=== PATIENT | male | born 1945 | race Caucasian/White ===

== ENCOUNTER 2024-07-25 04:58 | Inpatient (IN) ==
--- NOTE | 2024-07-25 05:12 | Emergency Department Note ---
History of Present Illness General Chief complaint: Trauma Stated complaint: Syncope, Fall Time Seen by Provider: 07/25/24 05:04 Source: EMS History of Present Illness Provider complaint: Syncope and fall Onset (ago): hour(s) 1 78-year-old male with history of diabetes and atrial fibrillation presents emergency department for syncope and fall. Patient reports he was on his computer and around 4 AM he got up to go to another room and felt very dizzy and fell and passed out. Patient is currently reporting pain in his neck. He reports no chest pain or difficulty breathing. Patient reports he was having difficulty sleeping so he took some Benadryl earlier tonight he also reports that he forgot his morning medications so he took them in the evening but did not take double doses of that. Patient reports he is on blood thinners but is not sure which one. Home Medications Medication Instructions Recorded Confirmed Type AMITRIPTYLINE HCL (ELAVIL) 10 mg PO DAILY #0 tabs 05/31/12 History ATENOLOL (TENORMIN) 50 mg PO DAILY #0 tabs 05/31/12 History CHOLECALCIFEROL (VITAMIN D 1000 1,000 inter.unit PO DAILY #0 caps 05/31/12 History UNIT) Diltiazem Hcl (TIAZAC 120 MG) 120 mg PO DAILY #0 caps 05/31/12 History Furosemide (Lasix) 10 mg PO PRN #0 tabs 05/31/12 History INSULIN ASPART (NOVOLOG) 25 unit SC TIDM #0 BTLS 05/31/12 History INSULIN GLARGINE (LANTUS SOLOSTAR 50 unit SC BID ##0 05/31/12 History PEN) LEVOTHYROXINE SODIUM (LEVOXYL) 0.175 mg PO DAILY #0 tabs 05/31/12 History LISINOPRIL (PRINIVIL) 20 mg PO DAILY #0 tabs 05/31/12 History METFORMIN HCL (GLUCOPHAGE) 1,000 mg PO BID #0 tabs 05/31/12 History ROSUVASTATIN CALCIUM (Crestor) 10 mg PO QPM #0 tabs 05/31/12 History Allergies Allergy/AdvReac Type Severity Reaction Status Date / Time No Known Allergies Allergy Unverified 05/31/12 15:23 Past Med/Surg History Problem List (Updated 07/25/24 @ 06:43 by Tunde Chance MD) Hypokalemia (Acute) Lactic acidemia (Acute) Syncope and collapse (Acute) Hypoglycemia (Acute) RUANO (dyspnea on exertion) Medical History Atrial fibrillation Sleep apnea Dyslipidemia Hypertension Type 2 diabetes mellitus Social History Smoking Status: Former smoker Preferred Language: Slovak Feels Safe at Home: Yes Physical Exam Vital Signs Vital Signs - 24 hr 07/25/24 05:03 07/25/24 05:10 07/25/24 05:10 Temperature 37 C Pulse Rate 79 83 Pulse Rate [Apical] Pulse Rhythm [Apical] Pulse Strength [Apical] Pulse Strength [Carotid] Normal Respiratory Rate 19 Respiratory Effort / Characteristics Respiratory Depth Respiratory Pattern Blood Pressure 135/89 Blood Pressure [Right Arm] Blood Pressure Mean Blood Pressure Mean [Right Arm] Blood Pressure Position [Right Arm] Pulse Oximetry 94 Oxygen Delivery Method Room Air Oxygen Flow Rate 0 Sepsis Recent Fever Within 48 Hours No Sepsis New/Unexplained Change in Mental Status N/A Sepsis Action Taken by Nursing No Action Required 07/25/24 05:25 07/25/24 05:33 07/25/24 05:50 Temperature Pulse Rate 76 98 H 74 Pulse Rate [Apical] Pulse Rhythm [Apical] Pulse Strength [Apical] Pulse Strength [Carotid] Respiratory Rate 17 17 Respiratory Effort / Characteristics Respiratory Depth Respiratory Pattern Blood Pressure 131/66 123/71 Blood Pressure [Right Arm] Blood Pressure Mean 92 75 Blood Pressure Mean [Right Arm] Blood Pressure Position [Right Arm] Pulse Oximetry 95 94 Oxygen Delivery Method Room Air Room Air Oxygen Flow Rate Sepsis Recent Fever Within 48 Hours Sepsis New/Unexplained Change in Mental Status Sepsis Action Taken by Nursing 07/25/24 06:07 Temperature Pulse Rate Pulse Rate [Apical] 70 Pulse Rhythm [Apical] Irregular Pulse Strength [Apical] Normal Pulse Strength [Carotid] Respiratory Rate 17 Respiratory Effort / Characteristics Non-Labored Spontaneous Respiratory Depth Normal Respiratory Pattern Regular Blood Pressure Blood Pressure [Right Arm] 117/71 Blood Pressure Mean Blood Pressure Mean [Right Arm] 86 Blood Pressure Position [Right Arm] Lying Pulse Oximetry 100 Oxygen Delivery Method Room Air Oxygen Flow Rate Sepsis Recent Fever Within 48 Hours Sepsis New/Unexplained Change in Mental Status Sepsis Action Taken by Nursing Physical Exam GENERAL: He is oriented to person, place, and time. He appears well-developed and well-nourished. He does not appear distressed. HENT: Exam performed. - Head: Normocephalic and atraumatic. - Right Ear: External ear normal. No mastoid erythema - Left Ear: External ear normal. No mastoid erythema - Mouth/Throat: The oropharynx is clear and moist. No trismus in the jaw. No dental abscesses or uvula swelling. No oropharyngeal exudate or tonsillar abscesses. EYES: Conjunctivae and EOM are normal. Pupils are equal, round, and reactive to light. Right eye exhibits no discharge. Left eye exhibits no discharge. No scleral icterus. NECK: Normal range of motion. Neck supple. No JVD present. No spinous process tenderness present. CV: Normal rate, irregular rhythm, normal heart sounds and intact distal pulses. There is no peripheral edema. Palpable radial pulses bue. PULM/CHEST: Effort normal and breath sounds normal. No respiratory distress. No stridor. He has no wheezes. He has no rales. - Chest Wall: He exhibits no tenderness. ABD: The abdomen is soft. Ventral hernia present. There is no tenderness. There is no rebound, no guarding. MUSC/SKEL: Pelvis stable. No C, T, or L-spine tenderness. NEURO: He is alert and oriented to person, place, and time. He has normal strength. No cranial nerve deficit or sensory deficit. Coordination and gait normal. GCS eye subscore is 4. GCS verbal subscore is 5. GCS motor subscore is 6. Cerebellar tests wnl. SKIN: Skin is warm and dry. He is not diaphoretic. Procedures FAST Exam FAST Exam 1: Fluid in Morison's pouch: No Fluid in Splenorenal Junction: No Fluid around bladder, Transverse view: No Fluid around bladder, Sagittal view: No Fluid in Pericardial Sac: No Gross Wall Motion Abnormality: No Study normal for this patient: Yes Course Course 0504: The patient was evaluated in room B1. A complete history and physical exam was performed Cardiac monitoring: An order was placed for continuous cardiac monitoring. The monitor shows a rate of 80 with atrial fibrilation rhythm interpreted by me Patient was initially hypotensive for EMS 90/60. Given the patient's low blood pressure, reported history of an unknown blood thinner, trauma alert was activated. 0520: Vital signs stable. Patient's i-STAT showed glucose of 45. Patient states he is not sure which medicine agents he took double dose of but also reports he did not eat tonight. 1 amp of D50 ordered for the patient. 0639: Vital signs stable. Labs show white blood cell count of 6.34. Hematocrit 37.7 hemoglobin 12.9. Potassium 3. Potassium repleted in the emergency department. Patient's repeat glucose after 1 amp of D50 117. Patient's lactic acid was initially 2.7. Patient has a cardiac history, will not give 30 cc/kg bolus given that the patient is normotensive. Urinalysis is pending. Broad- spectrum antibiotic Zosyn ordered for the patient. Unclear if the patient's lactic acidemia is secondary to his chronic metformin usage or sepsis, but empiric broad-spectrum antibiotics Zosyn given for the patient. CT of the head negative. CT of the C-spine negative. CT of the abdomen pelvis showed an irregular contour of the liver indicating chronic liver disease. Patient's alcohol was 20 however the patient states he does not drink alcohol. There was extensive pandiverticulosis which could represent chronic diverticulitis. Discussed the case with Dr. Mckeon [facility] hospitalist and he will evaluate the patient for admission. Administered Medications Discontinued Medications Dextrose (Dextrose 50% 50 Ml Syringe) 50 ml IV NOW ONE Stop: 07/25/24 05:15 Last Admin: 07/25/24 05:28 Dose: 50 ml Documented By: DOMINGUEZ Dextrose (Dextrose 50% 50 Ml Syringe) Confirm Administered Dose 50 ml IV .STK- MED ONE Stop: 07/25/24 05:16 Last Admin: 07/25/24 05:30 Dose: Not Given Documented By: DOMINGUEZ Sodium Chloride (Nss) 500 mls @ 999 mls/hr IV .Q31M ONE Stop: 07/25/24 06:27 Last Admin: 07/25/24 06:01 Dose: 999 mls/hr Documented By: DOMINGUEZ Ioversol (Optiray 320 100ml) 94 ml IV ONCE ONE Stop: 07/25/24 05:31 Last Admin: 07/25/24 05:30 Dose: 94 ml Documented By: KEYONNA Critical Care Time Critical Care Time: Yes Total Critical Care Time: 64 I have personally spent greater than 64 minutes of critical care time in the direct management of this patient. This includes bedside care, interpretation of diagnostic studies, and testing, discussion with consultants, patient, and family members, and other required patient management activities. This 64 minutes is in excess of all separately billable procedures. Medical Decision Making Laboratory Data Attestation: I reviewed the patient's lab results. 07/25/24 05:11 07/25/24 05:11 Lab Results 07/25/24 07/25/24 07/25/24 Range/Units 05:11 05:13 05:27 WBC 6.34 (4.8-10.8) K/ul RBC 4.04 L (4.70-6.10) M/uL Hgb 12.9 L (14.0-18.0) g/dl POC Hgb 12.9 L (14.0-18.0) g/dl Hct 37.7 L (42.0-52.0) % POC Hct 38 L (42-52) % MCV 93.3 (80.0-100.0) fL MCH 31.9 (25.0-34.0) pg MCHC 34.2 (32.0-36.0) g/dL RDW Std Deviation 44.1 (36.4-46.3) fL RDW Coeff of Asiya 12.9 (11.5-14.5) % Plt Count 169 (130-400) K/uL MPV 10.6 (9.4-12.4) fL Immature Gran % (Auto) 0.5 % Neut % (Auto) 59.4 % Lymph % (Auto) 21.1 % [place] % (Auto) 17.8 % Eos % (Auto) 0.9 % Baso % (Auto) 0.3 % Neut # (Auto) 3.76 (1.40-6.50) K/uL Lymph # (Auto) 1.34 (1.20-3.40) K/uL [place] # (Auto) 1.13 H (0.11-0.59) K/uL Eos # (Auto) 0.06 (0.00-0.50) K/uL Baso # (Auto) 0.02 (0.00-0.20) K/uL Immature Gran # (Auto) 0.03 (0.01-0.20) K/uL PT 11.4 (9.0-12.0) Seconds INR 1.1 (0.9-1.1) APTT 26 (21-31) Seconds PTT Ratio 1.0 POC Sodium 141 (135-144) mmol/L Sodium 140 (136-145) mmol/L POC Potassium 2.9 L (3.3-5.0) mmol/L Potassium 3.0 L (3.5-5.1) mmol/L POC Chloride 100 L (101-112) mmol/L Chloride 103 (98-107) mmol/L Carbon Dioxide 30 (21-32) mmol/L POC Total CO2 27 (24-31) mmol/L Anion Gap 7 (3-11) POC Anion Gap 17.0 (16-25) mmol/L POC BUN 30 H (7-18) mg/dl BUN 32 H (6-23) mg/dl Creatinine 1.30 (0.6-1.4) mg/dl POC Creatinine 1.3 (0.6-1.3) mg/dl Est Cr Clr Drug Dosing 52.7 ml/min eGFR 56.58 BUN/Creatinine Ratio 24.6 H (10-20) Glucose 46 L* (70-99(Fasting)) mg/dl POC Glucose 61 L* (70-99) mg/dl POC Glucose (other) 45 L* (70-99) mg/dl Lactate (0.4-2.0) mmol/L Calcium 8.9 (8.6-10.3) mg/dl POC Ioniz Calcium Mich 1.15 (1.12-1.32) mmol/l Magnesium 2.2 (1.7-2.4) mg/dl Troponin I High Sens 5.9 (0-20) pg/ml Lipase 17 (11-82) U/L Ethyl Alcohol mg/dL (<10.0) mg/dl 07/25/24 07/25/24 Range/Units 05:28 05:45 WBC (4.8-10.8) K/ul RBC (4.70-6.10) M/uL Hgb (14.0-18.0) g/dl POC Hgb (14.0-18.0) g/dl Hct (42.0-52.0) % POC Hct (42-52) % MCV (80.0-100.0) fL MCH (25.0-34.0) pg MCHC (32.0-36.0) g/dL RDW Std Deviation (36.4-46.3) fL RDW Coeff of Asiya (11.5-14.5) % Plt Count (130-400) K/uL MPV (9.4-12.4) fL Immature Gran % (Auto) % Neut % (Auto) % Lymph % (Auto) % [place] % (Auto) % Eos % (Auto) % Baso % (Auto) % Neut # (Auto) (1.40-6.50) K/uL Lymph # (Auto) (1.20-3.40) K/uL [place] # (Auto) (0.11-0.59) K/uL Eos # (Auto) (0.00-0.50) K/uL Baso # (Auto) (0.00-0.20) K/uL Immature Gran # (Auto) (0.01-0.20) K/uL PT (9.0-12.0) Seconds INR (0.9-1.1) APTT (21-31) Seconds PTT Ratio POC Sodium (135-144) mmol/L Sodium (136-145) mmol/L POC Potassium (3.3-5.0) mmol/L Potassium (3.5-5.1) mmol/L POC Chloride (101-112) mmol/L Chloride (98-107) mmol/L Carbon Dioxide (21-32) mmol/L POC Total CO2 (24-31) mmol/L Anion Gap (3-11) POC Anion Gap (16-25) mmol/L POC BUN (7-18) mg/dl BUN (6-23) mg/dl Creatinine (0.6-1.4) mg/dl POC Creatinine (0.6-1.3) mg/dl Est Cr Clr Drug Dosing ml/min eGFR BUN/Creatinine Ratio (10-20) Glucose (70-99(Fasting)) mg/dl POC Glucose 117 H (70-99) mg/dl POC Glucose (other) (70-99) mg/dl Lactate 2.7 H* (0.4-2.0) mmol/L Calcium (8.6-10.3) mg/dl POC Ioniz Calcium Mich (1.12-1.32) mmol/l Magnesium (1.7-2.4) mg/dl Troponin I High Sens (0-20) pg/ml Lipase (11-82) U/L Ethyl Alcohol mg/dL 20.3 H (<10.0) mg/dl Imaging Data Attestation: I personally reviewed and interpreted this imaging study as follows: My Impression: Chest x-ray: Chest x-ray negative. Airway clear. No pneumothorax. No consolidation. No cardiomegaly or cephalization.. No free air under the diaphragm. No fractures of the skeletal structures. CT head: No [facility] Radiologist's Impression: Abdomen/Pelvis CT 07/25/24 05:05 EXAM: CT abd pelvis IV con only CLINICAL HISTORY: syncope, fall, r/o trauma. TECHNIQUE: Contrast-enhanced CT of the abdomen and pelvis was performed, with the following protocol: axial images with, and reconstructed coronal and sagittal images. 94 cc Optiray 320 Intravenous contrast was administered. One of the following dose reduction techniques was utilized for this exam: Automated exposure control, adjustment of the mA and/or kV according to patient size, and use of iterative reconstruction. COMPARISON: None. FINDINGS: Abdomen: Liver: Normal in size, shape, and density. The contour of the liver is irregular suggesting chronic liver disease. No focal lesions, cysts, or masses were identified. Hepatic vasculature and biliary ducts are unremarkable. Gallbladder and Biliary System: The gallbladder is normal in size and shape. No wall thickening, pericholecystic fluid, or gallstones were identified. The common bile duct is normal in caliber without dilation. Pancreas: Pancreatic head, body, and tail are visualized and appear normal in size and density. No pancreatic masses or calcifications were noted. The pancreatic duct is not dilated. Spleen: Normal in size, shape, and density. No splenic lesions or masses were identified. Kidneys and Adrenal Glands: Both kidneys are normal in size, shape, and position. Cortical thickness is within normal limits. No renal calculi or hydronephrosis. Adrenal glands are unremarkable with no evidence of masses or hyperplasia. Pelvis: Urinary Bladder: Normal in contour and wall thickness. No intraluminal lesions identified. Prostate: Normal in size and contour. No focal lesions or masses identified. Seminal Vesicles: Normal in size and appearance. No abnormalities noted. Peritoneal and Retroperitoneal Structures: No free fluid or abnormal fluid collections were identified within the abdomen or pelvis. No lymphadenopathy was noted. Bowel: Extensive lawler colon diverticulosis with thickening of the sigmoid wall represents chronic diverticulitis. The visualized bowel loops are normal in caliber and appearance. No evidence of bowel obstruction. Bones and Soft Tissues: Severe spondylotic changes were noted. No signs of acute fracture/dislocation. Partial collapse of the L3 vertebra. Grade 1 anterolisthesis of L5 over S1. Non-specific fat stranding in the subcutaneous tissue in the anterior abdominal wall. IMPRESSION: 1. Severe spondylotic changes were noted. No signs of acute fracture/dislocation. 2. The contour of the liver is irregular suggesting chronic liver disease. 3. Extensive lawler colon diverticulosis with thickening of the sigmoid wall represents chronic diverticulitis. Electronically signed by Yusra Jose 07-25-2024 06:[address] 07/25/24 05:05 EXAM: CT cervical spine wo con CLINICAL HISTORY: Syncope, fall, r/o trauma TECHNIQUE: A CT scan of the cervical spine was performed without the administration of intravenous contrast. Contiguous axial images were obtained from the skull base to the upper thoracic spine. Coronal and sagittal reformatted images were also reviewed. One of the following dose-reduction techniques was utilized for this exam. Automated exposure control, adjustment of the mA and/or kV according to patient size, and use of iterative reconstruction. COMPARISON: No previous studies are available for comparison. FINDINGS: Straightening of the cervical lordotic curve indicating muscle spasm No vertebral wedging or collapse Advanced spondylosis with anterior and posterior marginal osteophytosis multilevel particularly from C5-6 down to C7-T1 attenuated disc spaces with intradiscal calcifications. Forward slippage of C3 and C4 over corresponding vertebrae secondary to facet arthropathic changes degenerative spondylolisthesis Atlantoaxial osteoarthritis. Multilevel neurocentral arthropathic changes forming osteophytes complexes l at the mid to the degenerative neural foraminal compromise bilaterally Nuchal ligament calcifications of opposite C5 and C6 vertebrae Multilevel of disc/Osteophytic complexes are seen indenting the ventral aspect of the theca and encroaching upon both neural exit foramina most at C5-6 and C6-7 levels. Detailed disc disease assessment may require additional MRI. No paraspinal masses or hematomas. IMPRESSION: 1. No fractures 2. C3 and C4 degenerative spondylolisthesis. 3. 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 Multilevel of disc/Osteophytic complexes are seen indenting the ventral aspect of the theca and encroaching upon both neural exit foramina most at C5-6 and C6-7 levels. Detailed disc disease assessment may require additional MRI. Electronically signed by Yusra Jose 07-25-2024 06:16 AM Chest X-Ray 07/25/24 05:05 EXAM: XR chest 1V portable CLINICAL HISTORY: TRAUMA JM. TECHNIQUE: An X-ray image of the chest is obtained in AP projection. COMPARISON: No prior studies are available for comparison. FINDINGS: Pulmonary Parenchyma: Lungs are clear bilaterally. No evidence of consolidation, collapse, or focal opacities. No pulmonary nodules are identified. No evidence of pleural effusion or pleural thickening. Heart and Mediastinum: Heart size and shape are normal. No mediastinal widening or masses. No hilar or mediastinal lymphadenopathy. Bony Thorax: Bony thorax appears intact without fractures or deformities. Soft Tissues: Soft tissues overlying the chest wall are unremarkable. IMPRESSION: Normal chest X-ray. No acute cardiopulmonary abnormalities are identified. Electronically signed by Yusra Jose 07-25-2024 06:[address] 07/25/24 05:05 EXAM: CT head/brain wo con CLINICAL HISTORY: Dizziness, syncope, fall, r/o trauma TECHNIQUE: An axial non-contrast CT scan of the brain was performed from the skull base to the high parietal region. One of the following dose reduction techniques were utilized for this exam: Automated exposure control, adjustment of the mA and/or kV according to patient size, and use of iterative reconstruction. COMPARISON: None. FINDINGS: No definite calvarium fractures. There are tiny ill-defined hypodense areas noted in the subcortical white matter and the periventricular region bilaterally, suggestive of mild-moderate microvascular ischemic changes. No established territorial infarction was identified. No evidence of intracerebral hemorrhage. No extra axial hematoma. No other focal parenchymal abnormalities are demonstrated. Gutierrez-white matter differentiation is maintained. No midline shifts or deformity. The ventricular system, cortical sulci and basal cisterns are prominent and consistent with senile changes Normal CT appearance of the posterior fossa structures namely the cerebellar hemispheres, brainstem, and cerebellar peduncles. The cerebello-pontine angles are clear. The pituitary gland, the pineal gland, and the optic chiasm are unremarkable. The osseous structures in the skull base are unremarkable. Age-indeterminate fracture of the right maxillary sinus with mild sinusitis. IMPRESSION: 1. Age-related brain involution with mild-moderate microvascular ischemic changes. 2. No acute injury was noted. 3. Age-indeterminate fracture of the right maxillary sinus with mild sinusitis. Electronically signed by Yusra Jose 07-25-2024 06:13 AM ECG Data Attestation: I personally reviewed and interpreted this ECG as follows: Rate (beats per minute): 78 Rhythm: + atrial fibrillation ECG Intervals/blocks: + Normal QRS and + Normal QT-c ECG ST segments: + Normal ST segments [facility] Narrative 0504: The patient was evaluated in room B1. A complete history and physical exam was performed Cardiac monitoring: An order was placed for continuous cardiac monitoring. The monitor shows a rate of 80 with atrial fibrilation rhythm interpreted by me Patient was initially hypotensive for EMS 90/60. Given the patient's low blood pressure, reported history of an unknown blood thinner, trauma alert was activated. 0520: Vital signs stable. Patient's i-STAT showed glucose of 45. Patient states he is not sure which medicine agents he took double dose of but also reports he did not eat tonight. 1 amp of D50 ordered for the patient. 0639: Vital signs stable. Labs show white blood cell count of 6.34. Hematocrit 37.7 hemoglobin 12.9. Potassium 3. Potassium repleted in the emergency department. Patient's repeat glucose after 1 amp of D50 117. Patient's lactic acid was initially 2.7. Patient has a cardiac history, will not give 30 cc/kg bolus given that the patient is normotensive. Urinalysis is pending. Broad- spectrum antibiotic Zosyn ordered for the patient. Unclear if the patient's lactic acidemia is secondary to his chronic metformin usage or sepsis, but empiric broad-spectrum antibiotics Zosyn given for the patient. CT of the head negative. CT of the C-spine negative. CT of the abdomen pelvis showed an irregular contour of the liver indicating chronic liver disease. Patient's alcohol was 20 however the patient states he does not drink alcohol. There was extensive pandiverticulosis which could represent chronic diverticulitis. Discussed the case with Dr. Mike Hawley hospitalist and he will evaluate the patient for admission. Impression & Plan Hypoglycemia, Syncope and collapse, Lactic acidemia, Hypokalemia Discharge Plan Visit Data Chief Complaint: Trauma Stated Complaint: Syncope, Fall ED Provider: Robson,Tunde Discharge Problem: Hypoglycemia, Syncope and collapse, Lactic acidemia, Hypokalemia Patient Disposition: Being Evaluated by Hospitalist Forms Stand Alone Forms: My [facility] Prescriptions Prescriptions: No Action AMITRIPTYLINE HCL (ELAVIL) 10 MG tablet 10 mg PO DAILY Qty: 0 ATENOLOL (TENORMIN) 50 MG tablet 50 mg PO DAILY Qty: 0 CHOLECALCIFEROL (VITAMIN D 1000 UNIT) 1,000 UNIT capsule 1,000 inter.unit PO DAILY Qty: 0 Diltiazem Hcl (TIAZAC 120 MG) capsule 120 mg PO DAILY Qty: 0 Furosemide (Lasix) 10 MG tablet 10 mg PO PRN Qty: 0 Patient Comments: for increased pedal edema. INSULIN ASPART (NOVOLOG) 100 UNIT/ INJECTION 25 unit SC TIDM Qty: 0 INSULIN GLARGINE (LANTUS SOLOSTAR PEN) 100 UNIT/ INJECTION 50 unit SC BID Qty: 0 LEVOTHYROXINE SODIUM (LEVOXYL) 175 MCG tablet 0.175 mg PO DAILY Qty: 0 LISINOPRIL (PRINIVIL) 20 MG tablet 20 mg PO DAILY Qty: 0 METFORMIN HCL (GLUCOPHAGE) 1,000 MG tablet 1,000 mg PO BID Qty: 0 ROSUVASTATIN CALCIUM (Crestor) 10 MG tablet 10 mg PO QPM Qty: 0 Referrals Referrals: PCP,NO [Physician] -
[2024-07-25 05:25] LABS: iSTAT Creatinine 1.3 mg/dl (0.6-1.3); iSTAT Hemoglobin 12.9 g/dl (14.0-18.0); iSTAT Ionized Calcium 1.15 mmol/l (1.12-1.32); iSTAT Potassium 2.9 mmol/L (3.3-5.0)
[2024-07-25 05:28] LABS: Basophils # (auto) 0.02 K/uL (0.00-0.20); Basophils % (auto) 0.3 %; Eosinophils # (auto) 0.06 K/uL (0.00-0.50); Eosinophils % (auto) 0.9 %; Hematocrit (blood only) 37.7 % (42.0-52.0); Hemoglobin 12.9 g/dl (14.0-18.0); Immature Granulocytes # (auto) 0.03 K/uL (0.01-0.20); Immature Granulocytes % (auto) 0.5 %; Lymphocytes # (auto) 1.34 K/uL (1.20-3.40); Lymphocytes % (auto) 21.1 %; Mean Corpuscular Hemoglobin 31.9 pg (25.0-34.0); Mean Corpuscular Hgb Conc 34.2 g/dL (32.0-36.0); Mean Corpuscular Volume 93.3 fL (80.0-100.0); Mean Platelet Volume 10.6 fL (9.4-12.4); Monocytes # (auto) 1.13 K/uL (0.11-0.59); Monocytes % (auto) 17.8 %; Neutrophils # (auto) 3.76 K/uL (1.40-6.50); Neutrophils % (auto) 59.4 %; Platelet Count 169 K/uL (130-400); RDW Coefficient of Variation 12.9 % (11.5-14.5); RDW Standard Deviation 44.1 fL (36.4-46.3); Red Blood Count 4.04 M/uL (4.70-6.10); White Blood Count 6.34 K/ul (4.8-10.8)
[2024-07-25] MEDS: DEXTROSE 50% 50 ML SYRINGE IV ONE ×3 (05:28→10:59)
[2024-07-25] MEDS: OPTIRAY 320 100ml IV ONE (05:30)
[2024-07-25 05:52] LABS: BUN Creatinine Ratio 24.6 (10-20); Calcium 8.9 mg/dl (8.6-10.3); Creatinine Clr Calc Pharmacy 52.7 ml/min; Magnesium 2.2 mg/dl (1.7-2.4); Troponin I High Sensitivity 5.9 pg/ml (0-20)
[2024-07-25 05:53] LABS: INR 1.1 (0.9-1.1); Partial Thromboplastin Time 26 Seconds (21-31); Prothrombin Time 11.4 Seconds (9.0-12.0)
[2024-07-25] MEDS: SODIUM CHLORIDE 0.9% 500 ML IV ONE (06:01)
--- NOTE | 2024-07-25 06:14 | CT Scan Report ---
EXAM: CT head/brain wo con CLINICAL HISTORY: Dizziness, syncope, fall, r/o trauma TECHNIQUE: An axial non-contrast CT scan of the brain was performed from the skull base to the high parietal region. One of the following dose reduction techniques were utilized for this exam: Automated exposure control, adjustment of the mA and/or kV according to patient size, and use of iterative reconstruction. COMPARISON: None. FINDINGS: No definite calvarium fractures. There are tiny ill-defined hypodense areas noted in the subcortical white matter and the periventricular region bilaterally, suggestive of mild-moderate microvascular ischemic changes. No established territorial infarction was identified. No evidence of intracerebral hemorrhage. No extra axial hematoma. No other focal parenchymal abnormalities are demonstrated. Gutierrez-white matter differentiation is maintained. No midline shifts or deformity. The ventricular system, cortical sulci and basal cisterns are prominent and consistent with senile changes Normal CT appearance of the posterior fossa structures namely the cerebellar hemispheres, brainstem, and cerebellar peduncles. The cerebello-pontine angles are clear. The pituitary gland, the pineal gland, and the optic chiasm are unremarkable. The osseous structures in the skull base are unremarkable. Age-indeterminate fracture of the right maxillary sinus with mild sinusitis. IMPRESSION: 1. Age-related brain involution with mild-moderate microvascular ischemic changes. 2. No acute injury was noted. 3. Age-indeterminate fracture of the right maxillary sinus with mild sinusitis. Electronically signed by Yusra Jose 07-25-2024 06:13 AM
--- NOTE | 2024-07-25 06:14 | XRay Report ---
EXAM: XR chest 1V portable CLINICAL HISTORY: TRAUMA JMF. TECHNIQUE: An X-ray image of the chest is obtained in AP projection. COMPARISON: No prior studies are available for comparison. FINDINGS: Pulmonary Parenchyma: Lungs are clear bilaterally. No evidence of consolidation, collapse, or focal opacities. No pulmonary nodules are identified. No evidence of pleural effusion or pleural thickening. Heart and Mediastinum: Heart size and shape are normal. No mediastinal widening or masses. No hilar or mediastinal lymphadenopathy. Bony Thorax: Bony thorax appears intact without fractures or deformities. Soft Tissues: Soft tissues overlying the chest wall are unremarkable. IMPRESSION: Normal chest X-ray. No acute cardiopulmonary abnormalities are identified. Electronically signed by Yusra Jose 07-25-2024 06:14 AM
--- NOTE | 2024-07-25 06:17 | CT Scan Report ---
EXAM: CT cervical spine wo con CLINICAL HISTORY: Syncope, fall, r/o trauma TECHNIQUE: A CT scan of the cervical spine was performed without the administration of intravenous contrast. Contiguous axial images were obtained from the skull base to the upper thoracic spine. Coronal and sagittal reformatted images were also reviewed. One of the following dose-reduction techniques was utilized for this exam. Automated exposure control, adjustment of the mA and/or kV according to patient size, and use of iterative reconstruction. COMPARISON: No previous studies are available for comparison. FINDINGS: Straightening of the cervical lordotic curve indicating muscle spasm No vertebral wedging or collapse Advanced spondylosis with anterior and posterior marginal osteophytosis multilevel particularly from C5-6 down to C7-T1 attenuated disc spaces with intradiscal calcifications. Forward slippage of C3 and C4 over corresponding vertebrae secondary to facet arthropathic changes degenerative spondylolisthesis Atlantoaxial osteoarthritis. Multilevel neurocentral arthropathic changes forming osteophytes complexes l at the mid to the degenerative neural foraminal compromise bilaterally Nuchal ligament calcifications of opposite C5 and C6 vertebrae Multilevel of disc/Osteophytic complexes are seen indenting the ventral aspect of the theca and encroaching upon both neural exit foramina most at C5-6 and C6-7 levels. Detailed disc disease assessment may require additional MRI. No paraspinal masses or hematomas. IMPRESSION: 1. No fractures 2. C3 and C4 degenerative spondylolisthesis. 3. 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 Multilevel of disc/Osteophytic complexes are seen indenting the ventral aspect of the theca and encroaching upon both neural exit foramina most at C5-6 and C6-7 levels. Detailed disc disease assessment may require additional MRI. Electronically signed by Yusra Jose 07-25-2024 06:16 AM
--- NOTE | 2024-07-25 06:26 | CT Scan Report ---
EXAM: CT abd pelvis IV con only CLINICAL HISTORY: syncope, fall, r/o trauma. TECHNIQUE: Contrast-enhanced CT of the abdomen and pelvis was performed, with the following protocol: axial images with, and reconstructed coronal and sagittal images. 94 cc Optiray 320 Intravenous contrast was administered. One of the following dose reduction techniques was utilized for this exam: Automated exposure control, adjustment of the mA and/or kV according to patient size, and use of iterative reconstruction. COMPARISON: None. FINDINGS: Abdomen: Liver: Normal in size, shape, and density. The contour of the liver is irregular suggesting chronic liver disease. No focal lesions, cysts, or masses were identified. Hepatic vasculature and biliary ducts are unremarkable. Gallbladder and Biliary System: The gallbladder is normal in size and shape. No wall thickening, pericholecystic fluid, or gallstones were identified. The common bile duct is normal in caliber without dilation. Pancreas: Pancreatic head, body, and tail are visualized and appear normal in size and density. No pancreatic masses or calcifications were noted. The pancreatic duct is not dilated. Spleen: Normal in size, shape, and density. No splenic lesions or masses were identified. Kidneys and Adrenal Glands: Both kidneys are normal in size, shape, and position. Cortical thickness is within normal limits. No renal calculi or hydronephrosis. Adrenal glands are unremarkable with no evidence of masses or hyperplasia. Pelvis: Urinary Bladder: Normal in contour and wall thickness. No intraluminal lesions identified. Prostate: Normal in size and contour. No focal lesions or masses identified. Seminal Vesicles: Normal in size and appearance. No abnormalities noted. Peritoneal and Retroperitoneal Structures: No free fluid or abnormal fluid collections were identified within the abdomen or pelvis. No lymphadenopathy was noted. Bowel: Extensive lawler colon diverticulosis with thickening of the sigmoid wall represents chronic diverticulitis. The visualized bowel loops are normal in caliber and appearance. No evidence of bowel obstruction. Bones and Soft Tissues: Severe spondylotic changes were noted. No signs of acute fracture/dislocation. Partial collapse of the L3 vertebra. Grade 1 anterolisthesis of L5 over S1. Non-specific fat stranding in the subcutaneous tissue in the anterior abdominal wall. IMPRESSION: 1. Severe spondylotic changes were noted. No signs of acute fracture/dislocation. 2. The contour of the liver is irregular suggesting chronic liver disease. 3. Extensive lawler colon diverticulosis with thickening of the sigmoid wall represents chronic diverticulitis. Electronically signed by Yusra Jose 07-25-2024 06:25 AM
--- NOTE | 2024-07-25 06:53 | History & Physical Report ---
Date of Service July 25, 2024 Assessment & Plan (1) Hypotension: Plan: Hypotension predisposing to fall, history recurrent falls A-fib on Eliquis, rate controlled Traumatic neck pain, patient without radiculopathy symptoms hyperlipidemia, on statin Rx DM2 insulin requiring, patient hypoglycemic at the ER, unknown baseline control hypothyroidism, euthyroid as of today's TSH GERD on PPI chronic anemia, hemoglobin close to baseline Possible alcohol abuse, patient denies recent EtOH intake but with detectable blood alcohol level, abdominal imaging shows chronic liver disease past tobacco abuse PCU Follow lactic acid response to IVF Hold off on antibiotics for now given absence of sepsis, patient has chronic diverticulitis on CT but denies acute pain. Retrieve patient home medication list. 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 ISS BG goal 1 10-1 40, check hemoglobin A1c AZRA S at risk protocol, DT precautions PT OT eval DVT prophylaxis. SCDs while Eliquis on hold Full code Text document was generated using [employer] voice recognition software. It may contain grammatical or spelling errors. Kindly contact undersigned for clarification of any documentation item in question. History of Present Illness Chief Complaint: Fall, near syncope Primary Care Provider: [facility] History obtained from patient and records. Medical history significant for A-fib on Eliquis, hypertension, hyperlipidemia, DM2 insulin requiring, hypothyroidism, GERD, gout, chronic anemia (baseline hemoglobin of 13), past tobacco abuse. Patient felt dizzy and lightheaded as she got up from her chair to go to another room this a.m. Recurrent falls over the last couple of months. Not sure about head trauma. Denies chest pain, SOB, abdominal pain. Usual left shoulder pain resulting from Compliant with home medications. Patient neighbor later summoned EMS. Achy neck pain following fall. No arm or leg weakness or incontinence symptoms. Patient noted to be hypotensive and hypoglycemic at home. Denies recent EtOH intake or abuse. SBP 90s, blood sugar 40s upon arrival at the ER. IV Zosyn administered at the ER. 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 Allergies Allergy/AdvReac Type Severity Reaction Status Date / Time No Known Allergies Allergy Unverified 07/25/24 09:09 Home Medications Medication Instructions Recorded Confirmed Type diltiazem HCl 120 mg capsule,24 120 mg PO DAILY #0 caps 05/31/12 07/25/24 History hr,extended release furosemide 20 mg tablet 20 mg PO DAILY #0 tabs 05/31/12 07/25/24 History insulin glargine-yfgn 100 unit/mL 25 - 40 unit subcut UD ##0 05/31/12 07/25/24 History (3 mL) subcutaneous pen levothyroxine 137 mcg tablet 137 mcg PO 6XWK #0 tabs 05/31/12 07/25/24 History allopurinol 100 mg tablet 100 mg PO DAILY 07/25/24 07/25/24 History apixaban 5 mg tablet (Eliquis) 5 mg PO BID 07/25/24 07/25/24 History ascorbic acid (vitamin C) 500 mg 500 mg PO Q OTHER DAY 07/25/24 07/25/24 History tablet (Vitamin C) aspirin 81 mg tablet,delayed 81 mg PO DAILY 07/25/24 07/25/24 History release atenolol 25 mg tablet 25 - 50 mg PO UD 07/25/24 07/25/24 History atorvastatin 80 mg tablet 40 mg PO HS 07/25/24 07/25/24 History capsaicin 0.075 % topical cream 1 applic topical DAILY PRN Pain 07/25/24 07/25/24 History cholecalciferol (vitamin D3) 25 50 mcg PO DAILY 07/25/24 07/25/24 History mcg (1,000 unit) tablet (Vitamin D3) cyanocobalamin (vitamin B-12) 1,000 mcg PO 3XWK 07/25/24 07/25/24 History 1,000 mcg tablet (Vitamin B-12) diphenhydramine HCl 25 mg capsule 25 mg PO HS 07/25/24 07/25/24 History (Benadryl) ferrous sulfate 325 mg (65 mg 325 mg PO Q OTHER DAY 07/25/24 07/25/24 History iron) tablet gabapentin 300 mg capsule 900 mg PO BID 07/25/24 07/25/24 History glucosamine sulfate 500 mg tablet 1,000 mg PO DAILY 07/25/24 07/25/24 History (Glucosamine) lidocaine 5 % topical patch 1 patch topical DAILY 07/25/24 07/25/24 History lisinopril 20 1 tab PO DAILY 07/25/24 07/25/24 History mg-hydrochlorothiazide 25 mg tablet melatonin 3 mg tablet 3 mg PO HS 07/25/24 07/25/24 History pantoprazole 40 mg tablet,delayed 40 mg PO DAILY 07/25/24 07/25/24 History release polyethylene glycol 3350 17 gram 17 g PO DAILY 07/25/24 07/25/24 History oral powder packet (Miralax) potassium gluconate 550 mg (90 mg) 550 mg PO DAILY 07/25/24 07/25/24 History tablet semaglutide 1 mg/dose (4 mg/3 mL) 1 mg subcut WK 07/25/24 07/25/24 History subcutaneous pen injector tramadol 50 mg tablet 50 mg PO Q6H PRN Pain 07/25/24 07/25/24 History Past Med/Surg History Problem List (Updated 07/25/24 @ 09:47 by Darren Ha MD) Hypotension Hypokalemia (Acute) Lactic acidemia (Acute) Syncope and collapse (Acute) Hypoglycemia (Acute) RUANO (dyspnea on exertion) Medical History Atrial fibrillation Sleep apnea Dyslipidemia Hypertension Type 2 diabetes mellitus Social History Smoking Status: Never smoker Hx Alcohol Use: No Hx Substance Use: No Preferred Language: Scottish Communication Ability: Impaired Beliefs That Will Affect Care: None Current Living Situation: Alone Other Information That Helps Us Care for You: No Feels Safe at Home: Yes Safety Concerns: Afraid for Self Assistive Devices: None Review of Systems Review of Systems: As per HPI, all other systems reviewed and negative Physical Exam Physical Exam: GENERAL: Comfortable, pleasant, no respiratory distress SKIN: Pallor, warm HEENT: Alopecia, pale palpebral conjunctivae, no ptosis, dry buccal mucosa NECK : Supple, posterior cervical tenderness CHEST : Decreased breath sounds, no tenderness HEART : Irregular, no obvious murmurs ABDOMEN: Some distention, nontender EXTREMITIES : No LE swelling/tenderness, left shoulder tenderness (chronic as per patient), no other conspicuous deformities noted NEUROLOGIC : Coherent, no facial asymmetry, fine hand tremors, gait and stance not assessed Results & Data Results & Data Vital Signs (Past 12 Hours) Vital Signs Temp Pulse Pulse Resp BP BP Pulse Ox 07/25/24 06:07 70 17 117/71 100 07/25/24 05:50 74 17 123/71 94 07/25/24 05:33 98 H 07/25/24 05:25 76 17 131/66 95 07/25/24 05:10 37 C 83 19 135/89 94 07/25/24 05:03 79 O2 Del Method O2 Flow Rate 07/25/24 06:07 Room Air 07/25/24 05:50 Room Air 07/25/24 05:33 07/25/24 05:25 Room Air 07/25/24 05:10 Room Air 0 07/25/24 05:03 Laboratory Results Laboratory Results WBC 6.34 K/ul (4.8-10.8) 07/25/24 05:11 RBC 4.04 M/uL (4.70-6.10) L 07/25/24 05:11 Hgb 12.9 g/dl (14.0-18.0) L 07/25/24 05:11 POC Hgb 12.9 g/dl (14.0-18.0) L 07/25/24 05:13 Hct 37.7 % (42.0-52.0) L 07/25/24 05:11 POC Hct 38 % (42-52) L 07/25/24 05:13 MCV 93.3 fL (80.0-100.0) 07/25/24 05:11 MCH 31.9 pg (25.0-34.0) 07/25/24 05:11 MCHC 34.2 g/dL (32.0-36.0) 07/25/24 05:11 RDW Std Deviation 44.1 fL (36.4-46.3) 07/25/24 05:11 RDW Coeff of Asiya 12.9 % (11.5-14.5) 07/25/24 05:11 Plt Count 169 K/uL (130-400) 07/25/24 05:11 MPV 10.6 fL (9.4-12.4) 07/25/24 05:11 Immature Gran % (Auto) 0.5 % 07/25/24 05:11 Neut % (Auto) 59.4 % 07/25/24 05:11 Lymph % (Auto) 21.1 % 07/25/24 05:11 Glascock % (Auto) 17.8 % 07/25/24 05:11 Eos % (Auto) 0.9 % 07/25/24 05:11 Baso % (Auto) 0.3 % 07/25/24 05:11 Neut # (Auto) 3.76 K/uL (1.40-6.50) 07/25/24 05:11 Lymph # (Auto) 1.34 K/uL (1.20-3.40) 07/25/24 05:11 Glascock # (Auto) 1.13 K/uL (0.11-0.59) H 07/25/24 05:11 Eos # (Auto) 0.06 K/uL (0.00-0.50) 07/25/24 05:11 Baso # (Auto) 0.02 K/uL (0.00-0.20) 07/25/24 05:11 Immature Gran # (Auto) 0.03 K/uL (0.01-0.20) 07/25/24 05:11 PT 11.4 Seconds (9.0-12.0) 07/25/24 05:11 INR 1.1 (0.9-1.1) 07/25/24 05:11 APTT 26 Seconds (21-31) 07/25/24 05:11 PTT Ratio 1.0 07/25/24 05:11 POC Sodium 141 mmol/L (135-144) 07/25/24 05:13 Sodium 140 mmol/L (136-145) 07/25/24 05:11 POC Potassium 2.9 mmol/L (3.3-5.0) L 07/25/24 05:13 Potassium 3.0 mmol/L (3.5-5.1) L 07/25/24 05:11 POC Chloride 100 mmol/L (101-112) L 07/25/24 05:13 Chloride 103 mmol/L (98-107) 07/25/24 05:11 Carbon Dioxide 30 mmol/L (21-32) 07/25/24 05:11 POC Total CO2 27 mmol/L (24-31) 07/25/24 05:13 Anion Gap 7 (3-11) 07/25/24 05:11 POC Anion Gap 17.0 mmol/L (16-25) 07/25/24 05:13 POC BUN 30 mg/dl (7-18) H 07/25/24 05:13 BUN 32 mg/dl (6-23) H 07/25/24 05:11 Creatinine 1.30 mg/dl (0.6-1.4) 07/25/24 05:11 POC Creatinine 1.3 mg/dl (0.6-1.3) 07/25/24 05:13 Est Cr Clr Drug Dosing 52.7 ml/min 07/25/24 05:11 eGFR 56.58 07/25/24 05:11 BUN/Creatinine Ratio 24.6 (10-20) H 07/25/24 05:11 Glucose 46 mg/dl (70-99(Fasting)) L* 07/25/24 05:11 POC Glucose 117 mg/dl (70-99) H 07/25/24 05:45 POC Glucose (other) 45 mg/dl (70-99) L* 07/25/24 05:13 Lactate 2.7 mmol/L (0.4-2.0) H* 07/25/24 05:28 Calcium 8.9 mg/dl (8.6-10.3) 07/25/24 05:11 POC Ioniz Calcium Mich 1.15 mmol/l (1.12-1.32) 07/25/24 05:13 Magnesium 2.2 mg/dl (1.7-2.4) 07/25/24 05:11 Troponin I High Sens 5.9 pg/ml (0-20) 07/25/24 05:11 Lipase 17 U/L (11-82) 07/25/24 05:11 Ethyl Alcohol mg/dL 20.3 mg/dl (<10.0) H 07/25/24 05:28 Blood Type A Positive 07/25/24 05:28 Antibody Screen NEGATIVE 07/25/24 05:28 Impressions Abdomen/Pelvis CT 07/25/24 05:05 EXAM: CT abd pelvis IV con only CLINICAL HISTORY: syncope, fall, r/o trauma. TECHNIQUE: Contrast-enhanced CT of the abdomen and pelvis was performed, with the following protocol: axial images with, and reconstructed coronal and sagittal images. 94 cc Optiray 320 Intravenous contrast was administered. One of the following dose reduction techniques was utilized for this exam: Automated exposure control, adjustment of the mA and/or kV according to patient size, and use of iterative reconstruction. COMPARISON: None. FINDINGS: Abdomen: Liver: Normal in size, shape, and density. The contour of the liver is irregular suggesting chronic liver disease. No focal lesions, cysts, or masses were identified. Hepatic vasculature and biliary ducts are unremarkable. Gallbladder and Biliary System: The gallbladder is normal in size and shape. No wall thickening, pericholecystic fluid, or gallstones were identified. The common bile duct is normal in caliber without dilation. Pancreas: Pancreatic head, body, and tail are visualized and appear normal in size and density. No pancreatic masses or calcifications were noted. The pancreatic duct is not dilated. Spleen: Normal in size, shape, and density. No splenic lesions or masses were identified. Kidneys and Adrenal Glands: Both kidneys are normal in size, shape, and position. Cortical thickness is within normal limits. No renal calculi or hydronephrosis. Adrenal glands are unremarkable with no evidence of masses or hyperplasia. Pelvis: Urinary Bladder: Normal in contour and wall thickness. No intraluminal lesions identified. Prostate: Normal in size and contour. No focal lesions or masses identified. Seminal Vesicles: Normal in size and appearance. No abnormalities noted. Peritoneal and Retroperitoneal Structures: No free fluid or abnormal fluid collections were identified within the abdomen or pelvis. No lymphadenopathy was noted. Bowel: Extensive lawler colon diverticulosis with thickening of the sigmoid wall represents chronic diverticulitis. The visualized bowel loops are normal in caliber and appearance. No evidence of bowel obstruction. Bones and Soft Tissues: Severe spondylotic changes were noted. No signs of acute fracture/dislocation. Partial collapse of the L3 vertebra. Grade 1 anterolisthesis of L5 over S1. Non-specific fat stranding in the subcutaneous tissue in the anterior abdominal wall. IMPRESSION: 1. Severe spondylotic changes were noted. No signs of acute fracture/dislocation. 2. The contour of the liver is irregular suggesting chronic liver disease. 3. Extensive lawler colon diverticulosis with thickening of the sigmoid wall represents chronic diverticulitis. Electronically signed by Yusra Jose 07-25-2024 06:[address] 07/25/24 05:05 EXAM: CT cervical spine wo con CLINICAL HISTORY: Syncope, fall, r/o trauma TECHNIQUE: A CT scan of the cervical spine was performed without the administration of intravenous contrast. Contiguous axial images were obtained from the skull base to the upper thoracic spine. Coronal and sagittal reformatted images were also reviewed. One of the following dose-reduction techniques was utilized for this exam. Automated exposure control, adjustment of the mA and/or kV according to patient size, and use of iterative reconstruction. COMPARISON: No previous studies are available for comparison. FINDINGS: Straightening of the cervical lordotic curve indicating muscle spasm No vertebral wedging or collapse Advanced spondylosis with anterior and posterior marginal osteophytosis multilevel particularly from C5-6 down to C7-T1 attenuated disc spaces with intradiscal calcifications. Forward slippage of C3 and C4 over corresponding vertebrae secondary to facet arthropathic changes degenerative spondylolisthesis Atlantoaxial osteoarthritis. Multilevel neurocentral arthropathic changes forming osteophytes complexes l at the mid to the degenerative neural foraminal compromise bilaterally Nuchal ligament calcifications of opposite C5 and C6 vertebrae Multilevel of disc/Osteophytic complexes are seen indenting the ventral aspect of the theca and encroaching upon both neural exit foramina most at C5-6 and C6-7 levels. Detailed disc disease assessment may require additional MRI. No paraspinal masses or hematomas. IMPRESSION: 1. No fractures 2. C3 and C4 degenerative spondylolisthesis. 3. 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 Multilevel of disc/Osteophytic complexes are seen indenting the ventral aspect of the theca and encroaching upon both neural exit foramina most at C5-6 and C6-7 levels. Detailed disc disease assessment may require additional MRI. Electronically signed by Yusra Jose 07-25-2024 06:16 AM Chest X-Ray 07/25/24 05:05 EXAM: XR chest 1V portable CLINICAL HISTORY: TRAUMA JMF. TECHNIQUE: An X-ray image of the chest is obtained in AP projection. COMPARISON: No prior studies are available for comparison. FINDINGS: Pulmonary Parenchyma: Lungs are clear bilaterally. No evidence of consolidation, collapse, or focal opacities. No pulmonary nodules are identified. No evidence of pleural effusion or pleural thickening. Heart and Mediastinum: Heart size and shape are normal. No mediastinal widening or masses. No hilar or mediastinal lymphadenopathy. Bony Thorax: Bony thorax appears intact without fractures or deformities. Soft Tissues: Soft tissues overlying the chest wall are unremarkable. IMPRESSION: Normal chest X-ray. No acute cardiopulmonary abnormalities are identified. Electronically signed by Yusra Jose 07-25-2024 06:[address] 07/25/24 05:05 EXAM: CT head/brain wo con CLINICAL HISTORY: Dizziness, syncope, fall, r/o trauma TECHNIQUE: An axial non-contrast CT scan of the brain was performed from the skull base to the high parietal region. One of the following dose reduction techniques were utilized for this exam: Automated exposure control, adjustment of the mA and/or kV according to patient size, and use of iterative reconstruction. COMPARISON: None. FINDINGS: No definite calvarium fractures. There are tiny ill-defined hypodense areas noted in the subcortical white matter and the periventricular region bilaterally, suggestive of mild-moderate microvascular ischemic changes. No established territorial infarction was identified. No evidence of intracerebral hemorrhage. No extra axial hematoma. No other focal parenchymal abnormalities are demonstrated. Gutierrez-white matter differentiation is maintained. No midline shifts or deformity. The ventricular system, cortical sulci and basal cisterns are prominent and consistent with senile changes Normal CT appearance of the posterior fossa structures namely the cerebellar hemispheres, brainstem, and cerebellar peduncles. The cerebello-pontine angles are clear. The pituitary gland, the pineal gland, and the optic chiasm are unremarkable. The osseous structures in the skull base are unremarkable. Age-indeterminate fracture of the right maxillary sinus with mild sinusitis. IMPRESSION: 1. Age-related brain involution with mild-moderate microvascular ischemic changes. 2. No acute injury was noted. 3. Age-indeterminate fracture of the right maxillary sinus with mild sinusitis. Electronically signed by Yusra Jose 07-25-2024 06:13 AM Diagnostic Findings EKG as per my interpretation :Rate 80, A-fib, normal axis, nonspecific T wave abnormalities
[2024-07-25] MEDS: CEFEPIME 2000MG 2,000 MG/20 ML SYR IV STA (07:36)
[2024-07-25] MEDS: SODIUM CHLORIDE 0.9% 500 ML IV SCH (07:36)
[2024-07-25 07:47] LABS: Appearance Urine Clear (Clear); Bilirubin Urine Negative (Negative); Blood Urine Negative (Negative); Color Urine Yellow; Glucose Urine UA Negative (Negative); Ketones Urine Negative (Negative); Leukocyte Esterase Urine Negative (Negative); Nitrite Urine Negative (Negative); Protein Urine Negative (Negative); Specific Gravity Urine 1.039 (1.000-1.030); Urobilinogen Urine Negative (Negative)
[2024-07-25 07:50] LABS: Estimated Average Glucose 154 mg/dl
[2024-07-25] MEDS ORDERED: PROMETHAZINE 6.25 MG/50.25 ML BAG IV PRN (07:55)
[2024-07-25] MEDS ORDERED: LORazepam 0.5 MG TAB PO PRN (07:55)
[2024-07-25] MEDS: POTASSIUM CHLORIDE CRTAB 20 MEQ TABCR PO STA (07:57)
[2024-07-25] MEDS: PIPERACILLIN/TAZOBACTAM 4.5 GM/120 ML BAG IV ONE (07:58)
[2024-07-25] MEDS ORDERED: LORazepam 2 MG/1 ML VIAL IV PRN ×2 (08:10→23:20)
[2024-07-25 08:28] LABS: Amphetamines+Metham, Urine Neg (Neg); Barbiturates, Urine Neg (Neg); Benzodiazepine, Urine Neg (Neg); Cocaine, Urine Neg (Neg); Fentanyl, Urine Neg (Neg); MDMA (Ecstacy), Urine Neg (Neg); Marijuana, Urine Neg (Neg); Methadone, Urine Neg (Neg); Opiate, Urine Neg (Neg); Phencyclidine, Urine Neg (Neg)
[2024-07-25 08:30] LABS: Thyroid Stimulating Hormone 1.53 uIu/ml (0.300-4.500)
[2024-07-25] MEDS: THIAMINE HCL 100 MG in SYRINGE 9 ML IV STA (08:33)
[2024-07-25] MEDS: POTASSIUM CHLORIDE 10 MEQ TABCR PO STA (09:11)
--- NOTE | 2024-07-25 10:24 | Magnetic Resonance Report ---
MRI OF THE CERVICAL SPINE WITHOUT CONTRAST CLINICAL HISTORY: Neck pain. Falls. COMPARISON: Cervical spine CT July 25, 2024. TECHNIQUE: Utilizing a 1.5 Yaquelin magnet and dedicated coil, multiplanar, multiecho imaging of the ce rvical spine was performed without IV contrast. FINDINGS: There is straightening of the cervical cord lordosis. This exam is mildly compromised by motion artif act. Cervical cord signal and caliber are normal. There is no intracanalicular mass or fluid collecti on. Paravertebral soft tissues are unremarkable. Specifically, there is no MRI evidence for ligamento us injury. Increased T2 signal within the C7-T1 disc space is present. The adjacent endplates are int act and there is no paravertebral edema. There are no fractures within the cervical spine. C2-C3: Posterior disc osteophyte complex slightly effaces the ventral thecal sac. There is no signif icant central canal stenosis. There is moderate facet arthrosis. Neural foramen are patent C3-C4: Posterior disc osteophyte complex, eccentric to the left indents the left ventral aspect of t he cord. There is moderate central canal stenosis. Patent AP diameter canal is 6 mm. There is severe bilateral neural foraminal stenosis due to facet arthrosis and uncovertebral hypertrophy. C4-C5: Disc space narrowing is present. Posterior disc osteophyte complex indents the right ventral aspect of the cord. There is mild to moderate central canal stenosis. There is moderate bilateral enrique ral foraminal stenosis due to facet arthrosis and uncovertebral hypertrophy. C5-C6: Severe disc space narrowing is present. Right paracentral disc osteophyte complex indents the right ventral aspect of the cord. There is moderate narrowing of the right aspect of the canal. Ther e is mild bilateral neural foraminal stenosis. C6-C7: Severe disc space narrowing is present. Posterior discussed by complex results in mild centra l canal stenosis. The right neural foramen is patent. There is mild left neural foraminal stenosis. C7-T1: Posterior disc osteophyte complex results in mild central canal stenosis. The left neural for amen is mildly narrowed. The right is patent. IMPRESSION: 1. No fractures within the cervical spine. Exam mildly compromised by motion artifact. 2. Severe multilevel facet arthrosis and moderate degenerative disc disease within the cervical spine . Moderate multilevel central canal and severe multilevel neural foraminal stenosis, as detailed abov e. 3. Normal cervical cord signal and caliber. 4. Increased fluid signal within the C7-T1 disc space. Adjacent endplates intact without paravertebra l edema. This finding is nonspecific although likely degenerative. An infectious or traumatic etiolog y is considered less likely. If persistent symptoms, short-term follow-up MRI could be obtained. ACT 112: Negative or not required by law. Electronically signed by: Jakob Xiao M.D. 07/25/2024 10:22 AM
[2024-07-25] MEDS ORDERED: GLUCAGON FOR INJ 1 MG VIAL SQ PRN (10:30)
[2024-07-25] MEDS ORDERED: DEXTROSE 50% 50 ML SYRINGE IV PRN (10:30)
[2024-07-25] MEDS ORDERED: GLUCOSE 40% GEL 15 GM TUBE PO PRN (10:30)
[2024-07-25] MEDS ORDERED: GLUCOSE 10 TAB/TUBE PO PRN (10:30)
[2024-07-25] MEDS ORDERED: CARBOHYDRATES FOR HYPOGLYCEMIA PO PRN (10:30)
[2024-07-25] MEDS: ACETAMINOPHEN 500 MG TAB PO PRN (11:17)
[2024-07-25] MEDS: NSS + 20MEQ KCL 20 MEQ/1,000 ML BAG IV STA (12:06)
[2024-07-25] MEDS: oxyCODONE HCL IR 5 MG TAB (IMMEDIATE RELEASE) PO PRN (12:21)
[2024-07-25] MEDS: INSULIN ASPART PER UNIT CHARGE SC SCH (12:42)
[2024-07-25] MEDS: FOLIC ACID 1 MG TAB PO SCH (13:29)
[2024-07-25] MEDS: MULTIVITAMIN TAB PO SCH (13:29)
[2024-07-25] MEDS: traMADol HCL 50 MG TABLET PO PRN (15:52)
--- NOTE | 2024-07-25 15:59 | XRay Report ---
EXAM: Radiographs of the Left Knee 3 Views INDICATION: Posttraumatic pain. TECHNIQUE: Three views of the left knee. COMPARISON: No relevant prior studies available. FINDINGS: Bones/joints: There is moderate to severe tricompartment primary osteoarthritic spurring and narrowing. There is extensive coarse spurring along the ligamentous insertions of the anterior patella and tibia. There is an incidental exostosis from the proximal lateral tibia. No joint effusion visible. No dislocation. Soft tissues: No abnormality noted. No radiopaque foreign body noted. 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 No acute abnormality noted. ACT 112: Negative or not required by law. Electronically signed by Gloria Elizabeth 07-25-2024 3:59 PM
--- NOTE | 2024-07-25 16:00 | XRay Report ---
EXAM: Radiographs of the Right Knee 3 Views INDICATION: Posttraumatic pain. TECHNIQUE: Three views of the right knee. COMPARISON: No relevant prior studies available. FINDINGS: Bones/joints: Moderate tricompartment narrowing and spurring. No loose body or erosion. No fracture. There is mild lateral tibial translation. There is moderate ossification along the ligamentous insertions of the anterior patella and tibia. Soft tissues: No abnormality noted. No radiopaque foreign body noted. Vasculature: Atherosclerotic calcification noted. IMPRESSION: Moderate tricompartment primary osteoarthritis. No acute fracture. ACT 112: Negative or not required by law. Electronically signed by Gloria Elizabeth 07-25-2024 4:00 PM
[2024-07-25] MEDS ORDERED: LIDOCAINE 5% 1 PATCH TD SCH (21:00)
[2024-07-25] MEDS: LIDOCAINE 5% 1 PATCH TD SCH ×2 (21:16→21:17)
--- NOTE | 2024-07-25 22:24 | History & Physical Report ---
Date of Service July 25, 2024 Assessment & Plan Admission and Anticipated Discharge Date Admission Date: July 25, 2024 History of Present Illness Primary Care Provider: [facility] Allergies Allergy/AdvReac Type Severity Reaction Status Date / Time No Known Allergies Allergy Unverified 07/25/24 09:09 Home Medications Medication Instructions Recorded Confirmed Type diltiazem HCl 120 mg capsule,24 120 mg PO DAILY #0 caps 05/31/12 07/25/24 History hr,extended release furosemide 20 mg tablet 20 mg PO DAILY #0 tabs 05/31/12 07/25/24 History insulin glargine-yfgn 100 unit/mL 25 - 40 unit subcut UD ##0 05/31/12 07/25/24 History (3 mL) subcutaneous pen levothyroxine 137 mcg tablet 137 mcg PO 6XWK #0 tabs 05/31/12 07/25/24 History allopurinol 100 mg tablet 100 mg PO DAILY 07/25/24 07/25/24 History apixaban 5 mg tablet (Eliquis) 5 mg PO BID 07/25/24 07/25/24 History ascorbic acid (vitamin C) 500 mg 500 mg PO Q OTHER DAY 07/25/24 07/25/24 History tablet (Vitamin C) aspirin 81 mg tablet,delayed 81 mg PO DAILY 07/25/24 07/25/24 History release atenolol 25 mg tablet 25 - 50 mg PO UD 07/25/24 07/25/24 History atorvastatin 80 mg tablet 40 mg PO HS 07/25/24 07/25/24 History capsaicin 0.075 % topical cream 1 applic topical DAILY PRN Pain 07/25/24 07/25/24 History cholecalciferol (vitamin D3) 25 50 mcg PO DAILY 07/25/24 07/25/24 History mcg (1,000 unit) tablet (Vitamin D3) cyanocobalamin (vitamin B-12) 1,000 mcg PO 3XWK 07/25/24 07/25/24 History 1,000 mcg tablet (Vitamin B-12) diphenhydramine HCl 25 mg capsule 25 mg PO HS 07/25/24 07/25/24 History (Benadryl) ferrous sulfate 325 mg (65 mg 325 mg PO Q OTHER DAY 07/25/24 07/25/24 History iron) tablet gabapentin 300 mg capsule 900 mg PO BID 07/25/24 07/25/24 History glucosamine sulfate 500 mg tablet 1,000 mg PO DAILY 07/25/24 07/25/24 History (Glucosamine) lidocaine 5 % topical patch 1 patch topical DAILY 07/25/24 07/25/24 History lisinopril 20 1 tab PO DAILY 07/25/24 07/25/24 History mg-hydrochlorothiazide 25 mg tablet melatonin 3 mg tablet 3 mg PO HS 07/25/24 07/25/24 History pantoprazole 40 mg tablet,delayed 40 mg PO DAILY 07/25/24 07/25/24 History release polyethylene glycol 3350 17 gram 17 g PO DAILY 07/25/24 07/25/24 History oral powder packet (Miralax) potassium gluconate 550 mg (90 mg) 550 mg PO DAILY 07/25/24 07/25/24 History tablet semaglutide 1 mg/dose (4 mg/3 mL) 1 mg subcut WK 07/25/24 07/25/24 History subcutaneous pen injector tramadol 50 mg tablet 50 mg PO Q6H PRN Pain 07/25/24 07/25/24 History Past Med/Surg History Problem List (Updated 07/25/24 @ 09:47 by Darren Ha MD) Hypotension Hypokalemia (Acute) Lactic acidemia (Acute) Syncope and collapse (Acute) Hypoglycemia (Acute) RUANO (dyspnea on exertion) Medical History Atrial fibrillation Sleep apnea Dyslipidemia Hypertension Type 2 diabetes mellitus Social History Smoking Status: Never smoker Hx Alcohol Use: No Hx Substance Use: No Preferred Language: Bruneian Communication Ability: Effective Beliefs That Will Affect Care: None Current Living Situation: Alone Other Information That Helps Us Care for You: No Feels Safe at Home: Yes Safety Concerns: Afraid for Self Assistive Devices: Cane, Glasses and Walker Results & Data Results & Data Vital Signs (Past 12 Hours) Vital Signs Temp Pulse Pulse Resp BP Pulse Ox O2 Del Method 07/25/24 19:40 37.0 C 96 H 18 98/57 L 07/25/24 15:16 36.8 C 70 19 116/58 L 97 Room Air 07/25/24 14:09 74 07/25/24 10:35 66 07/25/24 10:31 36.7 C 68 19 109/59 L 100 Room Air Code Status & VTE Plan VTE Prophylaxis Plan VTE Prophylaxis will be ordered: Yes
[2024-07-25] MEDS ORDERED: MELATONIN 3 MG TAB PO PRN (22:45)
[2024-07-25] MEDS: MELATONIN 3 MG TAB PO STA (23:07)
[2024-07-25] MEDS: GABAPENTIN 300 MG CAP PO SCH (23:18)
[2024-07-25] MEDS ORDERED: Ativan IV Alcohol Withdrawal--Active Protocol IV PRN (23:19)
--- NOTE | 2024-07-25 23:19 | Communication Note ---
Date of Service: July 25, 2024 Patient noted to be tachycardic and increasingly agitated/confused as per RN. AP Rapid A-fib Possible alcohol withdrawal AZRA S active protocol, DT precautions Initiate Librium if symptoms not controlled with patient's gabapentin Rx Resume home beta-connor Rx for A-fib
[2024-07-25] MEDS: oxyCODONE HCL IR 5 MG TAB (IMMEDIATE RELEASE) PO STA (23:25)
[2024-07-25] MEDS: LORazepam 2 MG/1 ML VIAL IV PRN (23:56)
[2024-07-26] MEDS: METOPROLOL TARTRATE 1 MG/ML VIAL IV STA ×2 (01:29→07:10)
[2024-07-26] MEDS: POTASSIUM CHLORIDE CRTAB 20 MEQ TABCR PO STA (03:31)
[2024-07-26] MEDS: NSS + 20MEQ KCL 20 MEQ/1,000 ML BAG IV ONE (03:31)
[2024-07-26] MEDS: dilTIAZem HCl 5 MG/ML 5 ML VIAL IV STA ×2 (03:40→23:53)
[2024-07-26 06:17] LABS: Basophils # (auto) 0.01 K/uL (0.00-0.20); Basophils % (auto) 0.1 %; Hematocrit (blood only) 40.1 % (42.0-52.0); Hemoglobin 13.2 g/dl (14.0-18.0); Immature Granulocytes # (auto) 0.07 K/uL (0.01-0.20); Immature Granulocytes % (auto) 0.7 %; Lymphocytes # (auto) 0.79 K/uL (1.20-3.40); Lymphocytes % (auto) 8.2 %; Mean Corpuscular Hemoglobin 30.7 pg (25.0-34.0); Mean Corpuscular Hgb Conc 32.9 g/dL (32.0-36.0); Mean Corpuscular Volume 93.3 fL (80.0-100.0); Mean Platelet Volume 11.2 fL (9.4-12.4); Monocytes # (auto) 1.95 K/uL (0.11-0.59); Monocytes % (auto) 20.3 %; Neutrophils # (auto) 6.79 K/uL (1.40-6.50); Neutrophils % (auto) 70.7 %; Platelet Count 168 K/uL (130-400); RDW Coefficient of Variation 13.1 % (11.5-14.5); RDW Standard Deviation 44.7 fL (36.4-46.3); White Blood Count 9.61 K/ul (4.8-10.8)
[2024-07-26 06:34] LABS: BUN Creatinine Ratio 27.5 (10-20); Calcium 9.2 mg/dl (8.6-10.3); Creatinine Clr Calc Pharmacy 61.5 ml/min; Potassium 4.3 mmol/L (3.5-5.1)
[2024-07-26] MEDS: ATENOLOL 50 MG TABLET PO SCH (08:47)
[2024-07-26] MEDS: dilTIAZem HCL 120 MG CAPCR PO SCH (08:47)
[2024-07-26] MEDS: PANTOprazole 40 MG TAB PO SCH (08:50)
[2024-07-26] MEDS: allopurinoL 100 MG TAB PO SCH (08:50)
[2024-07-26] MEDS: THIAMINE HCL 100 MG TAB PO SCH (08:50)
[2024-07-26] MEDS: FERROUS SULFATE 325 MG TAB PO SCH (08:51)
[2024-07-26] MEDS: GLUCOSAMINE SULFATE 500 MG CAP PO SCH (08:51)
[2024-07-26] MEDS ORDERED: METOPROLOL TARTRATE 25 MG TAB PO SCH (09:00)
[2024-07-26] MEDS: LORazepam 2 MG/1 ML VIAL IV PRN (09:39)
[2024-07-26] MEDS ORDERED: chlordiazePOXIDE ALCOHOL WITHDRAWL 25MG PO STA (09:53)
[2024-07-26] MEDS: POLYETHYLENE (MIRALAX) 17 GM PACK PO SCH (09:53)
[2024-07-26] MEDS: chlordiazePOXIDE HCl 25 MG CAP PO SCH (10:30)
[2024-07-26] MEDS: APIXABAN 5 MG TABLET PO SCH (16:35)
[2024-07-26] MEDS: METOPROLOL TARTRATE 1 MG/ML VIAL IV PRN (16:40)
--- NOTE | 2024-07-26 17:04 | Hospitalist Progress Note ---
Date of Service July 26, 2024 Assessment & Plan (1) Hypotension: Plan: Hypotension predisposing to fall, history recurrent falls Patient advised to have medication brought in by friends for verification, patient agreed Recurrent falls likely multifactorial Rule out orthostatic hypotension Rule out arrhythmia Echocardiogram showing EF of 55 to 60%, mild mitral regurgitation, mild tricuspid regurgitation Possible bilateral knee pain from arthritis and chronic neuropathy also contributing 07/26 Blood pressure seems to be improving Usual atenolol and diltiazem ordered Possible alcohol withdrawal Positive for alcohol level on admission Patient denies drinking alcohol Currently, patient presents with confusion, tremors, tachycardia Consistent with possible alcohol withdrawal Start Librium protocol along with alcohol drawl protocol, as needed Ativan Monitor closely No signs of infection Blood cultures pending A-fib on Eliquis, in RVR Alcohol withdrawal likely contributing Continue usual atenolol, diltiazem Already on Eliquis Monitor Traumatic neck pain, patient without radiculopathy symptoms -- Cervical MRI not revealing any fractures hyperlipidemia, on statin Rx DM2 insulin requiring, patient hypoglycemic at the ER, unknown baseline control -- A1c 7.0 No hypoglycemia noted since yesterday, patient educator consulted hypothyroidism, euthyroid as of today's TSH GERD on PPI chronic anemia, hemoglobin close to baseline Possible alcohol abuse, patient denies recent EtOH intake but with detectable blood alcohol level, abdominal imaging shows chronic liver disease past tobacco abuse May need to discuss safety of resuming anticoagulation on discharge 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 ISS BG goal 1 10-1 40, check hemoglobin A1c AZRA S at risk protocol, DT precautions PT OT eval DVT prophylaxis. Hedgeable Full code Text document was generated using [employer] voice recognition software. It may contain grammatical or spelling errors. Kindly contact undersigned for clarification of any documentation item in question. Admission and Anticipated Discharge Date Admission Date: July 25, 2024 Subjective Events overnight noted Seen resting in bed, sleeping but easily awakened Mostly confused Has some mild bilateral hand tremors No shortness of breath, no signs of pain Review of Systems Review of Systems: Unobtainable due to cognitive status Physical Exam Physical Exam: General- oriented x 0, not in distress, speaks in sentences with no effort or a ccessory muscle use Eyes- anicteric Neck- no JVD Lungs- clear breath sounds bilaterally, no crackles or wheezing Heart- normal rate, regular rhythm; no murmurs Abdomen- normal bowel sounds, nondistended, soft, no tenderness Extremities- no pretibial edema, no calf tenderness Neuro- drowsy; no gross focal neurologic deficits Skin- warm & dry Results & Data Results & Data Vital Signs (Past 12 Hours) Vital Signs Temp Pulse Pulse Resp BP BP Pulse Ox 07/26/24 16:55 111 H 126/68 07/26/24 16:40 37.0 C 129 H 16 131/66 100 07/26/24 16:40 139 H 131/66 07/26/24 14:37 37.2 C 133 H 17 126/64 94 07/26/24 12:20 37.0 C 140 H 18 155/47 H 95 07/26/24 10:27 37.4 C 128 H 18 147/67 H 97 07/26/24 09:31 37.8 C H 148 H 18 142/71 H 07/26/24 07:24 129 H 134/86 07/26/24 07:15 125 H 07/26/24 07:15 07/26/24 07:15 37.2 C 144 H 19 146/66 H 97 07/26/24 07:10 144 H 146/66 H 07/26/24 05:25 36.9 C 118 H 18 133/64 O2 Del Method 07/26/24 16:55 07/26/24 16:40 Room Air 07/26/24 16:40 07/26/24 14:37 Room Air 07/26/24 12:20 Room Air 07/26/24 10:27 Room Air 07/26/24 09:31 07/26/24 07:24 07/26/24 07:15 07/26/24 07:15 Room Air 07/26/24 07:15 Room Air 07/26/24 07:10 07/26/24 05:25 Room Air all noted and reviewed including below
--- NOTE | 2024-07-26 20:04 | Communication Note ---
Date of Service: July 26, 2024 Patient with uncontrolled A-fib rates. Metoprolol in place of atenolol for rate control for now. Titrate Cardizem
[2024-07-26 20:32] LABS: Magnesium 2.1 mg/dl (1.7-2.4)
[2024-07-26] MEDS: MELATONIN 3 MG TAB PO SCH (20:50)
[2024-07-26] MEDS: ATORVASTATIN 40 MG TAB PO SCH (20:53)
[2024-07-26] MEDS ORDERED: ATENOLOL 25 MG TABLET PO SCH (21:00)
[2024-07-26] MEDS: DICLOFENAC SOD 1% GEL 100 GM TUBE EXT PRN (21:14)
[2024-07-26] MEDS: METOPROLOL TARTRATE 50 MG TAB PO SCH (21:17)
[2024-07-26] MEDS: dilTIAZem HCL 30 MG TAB PO ONE (23:54)
--- NOTE | 2024-07-27 05:46 | Electrocardiogram Report ---
Test Reason : Blood Pressure : */* mmHG Vent. Rate : 78 BPM Atrial Rate : * BPM P-R Int : * ms QRS Dur : 86 ms QT Int : 390 ms P-R-T Axes : * 53 53 degrees QTcB Int : 444 ms Atrial fibrillation Abnormal ECG When compared with ECG of 02-Oct-2018 21:07, Atrial fibrillation has replaced Sinus rhythm Confirmed by Dameon Diaz ([id number]) on 07/27/2024 5:45:42 AM Referred By: REFERRED SELF Confirmed By: Dameon Diaz
[2024-07-27] MEDS: LEVOTHYROXINE SODIUM 137 MCG TABLET PO SCH (07:23)
--- NOTE | 2024-07-27 09:11 | XRay Report ---
XR chest 1V portable HISTORY: 78 years-old Male fever, rule out pneumonia acute shortness of breath with fever COMPARISON: 07/25/2024 TECHNIQUE: AP view of the chest FINDINGS: Cardiac silhouette is upper limits of normal in size. No pneumothorax, large pleural effusion or over t pulmonary edema. Mild subsegmental left basilar densities. Degenerative changes of the shoulders an d spine. IMPRESSION: Mild ill-defined left basilar opacities favor atelectasis. Findings could be correlated w ith PA and lateral views of the chest to exclude pneumonia. ACT 112: Negative or not required by law. The above report was generated using voice recognition software. It may contain grammatical, syntax o r spelling errors. Electronically signed by: Jian Marcano M.D. 07/27/2024 9:10 AM
[2024-07-27 09:15] LABS: Basophils # (auto) 0.01 K/uL (0.00-0.20); Basophils % (auto) 0.1 %; Eosinophils # (auto) 0.01 K/uL (0.00-0.50); Eosinophils % (auto) 0.1 %; Hematocrit (blood only) 35.7 % (42.0-52.0); Hemoglobin 12.2 g/dl (14.0-18.0); Immature Granulocytes # (auto) 0.11 K/uL (0.01-0.20); Immature Granulocytes % (auto) 1.1 %; Lymphocytes # (auto) 0.42 K/uL (1.20-3.40); Mean Corpuscular Hemoglobin 31.4 pg (25.0-34.0); Mean Corpuscular Hgb Conc 34.2 g/dL (32.0-36.0); Mean Corpuscular Volume 91.8 fL (80.0-100.0); Mean Platelet Volume 11.3 fL (9.4-12.4); Monocytes # (auto) 2.04 K/uL (0.11-0.59); Monocytes % (auto) 19.6 %; Neutrophils # (auto) 7.81 K/uL (1.40-6.50); Neutrophils % (auto) 75.1 %; Platelet Count 143 K/uL (130-400); RDW Coefficient of Variation 13.2 % (11.5-14.5); RDW Standard Deviation 44.1 fL (36.4-46.3); Red Blood Count 3.89 M/uL (4.70-6.10)
[2024-07-27] MEDS: LANTUS PER UNIT CHARGE SQ SCH (09:18)
[2024-07-27 09:35] LABS: Albumin Level 3.5 gm/dl (3.4-5.0); Bilirubin Direct 0.6 mg/dl (0-0.2); Bilirubin,Total 1.6 mg/dl (0.2-1.0); Total Protein 6.6 gm/dl (6.0-8.3)
[2024-07-27 10:52] LABS: Appearance Urine Clear (Clear); Bacteria Urine Automated None Seen (None Seen); Bilirubin Urine Negative (Negative); Blood Urine 2+ (Negative); Cast Urine Automated 0-2 /lpf (0-2); Color Urine Yellow; Epithelial Cell Urine Auto 0-2 /hpf (0-2); Glucose Urine UA Negative (Negative); Ketones Urine 1+ (Negative); Leukocyte Esterase Urine Negative (Negative); Nitrite Urine Negative (Negative); Protein Urine Trace (Negative); RBC Urine Automated 0-2 /hpf (0-2); Specific Gravity Urine 1.017 (1.000-1.030); Urobilinogen Urine Negative (Negative); WBC Urine Automated 0-5 /hpf (0-5); pH Urine 5.5 (4.5-7.5)
[2024-07-27] MEDS: chlordiazePOXIDE HCl 25 MG CAP PO SCH (12:25)
--- NOTE | 2024-07-27 14:12 | Hospitalist Progress Note ---
Date of Service July 27, 2024 delayed entry date of service noted above Assessment & Plan (1) Hypotension: Plan: Hypotension predisposing to fall, history recurrent falls Patient advised to have medication brought in by friends for verification, patient agreed Recurrent falls likely multifactorial Rule out orthostatic hypotension Rule out arrhythmia Echocardiogram showing EF of 55 to 60%, mild mitral regurgitation, mild tricuspid regurgitation Possible bilateral knee pain from arthritis and chronic neuropathy also contributing 07/26 Blood pressure seems to be improving Usual atenolol and diltiazem ordered Possible alcohol withdrawal Positive for alcohol level on admission Patient denies drinking alcohol Currently, patient presents with confusion, tremors, tachycardia Consistent with possible alcohol withdrawal Start Librium protocol along with alcohol drawl protocol, as needed Ativan Monitor closely No signs of infection Blood cultures pending 07/27 Blood pressure on the higher side No recurrence of hypotension Currently showing signs and symptoms of possible alcohol withdrawal Continue Librium protocol and alcohol to protocol Having intermittent episodes of fever Will also need to rule out infection BioFire negative Chest x-ray showing possible left lower lobe pneumonia Repeat blood cultures pending Urinalysis unremarkable Cefepime IV started A-fib on Eliquis, in RVR Alcohol withdrawal likely contributing Continue usual atenolol, diltiazem Already on Eliquis Monitor Traumatic neck pain, patient without radiculopathy symptoms -- Cervical MRI not revealing any fractures hyperlipidemia, on statin Rx DM2 insulin requiring -- patient hypoglycemic at the ER, unknown baseline control -- A1c 7.0 No hypoglycemia noted since yesterday, 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 Eliquis Full code Admission and Anticipated Discharge Date Admission Date: July 25, 2024 Subjective seen resting in bed, comfortable, sleeping easily awakened, able to answer more questions appropriately, But still weak Denies shortness of breath, cough, headache, abdominal pain No other symptoms Review of Systems Review of Systems: all noted and negative except for above Physical Exam Physical Exam: General- Drowsy,oriented x 2, not in distress, speaks in sentences with no effort or accessory muscle use Eyes- anicteric Neck- no JVD Lungs- clear breath sounds bilaterally, no rales/wheezes Heart- Tachycardic, regular rhythm; no murmurs Abdomen- normal bowel sounds, nondistended, soft, nontender Extremities- no pretibial edema, no calf tenderness Neuro- alert, oriented x 3; no gross focal neurologic deficits Skin- warm & dry Results & Data Results & Data Vital Signs (Past 12 Hours) Vital Signs Temp Pulse Pulse Resp BP BP Pulse Ox 07/27/24 11:16 36.9 C 96 H 19 126/82 94 07/27/24 08:30 37.5 C 07/27/24 07:59 38.3 C H 07/27/24 07:15 106 H 07/27/24 07:15 07/27/24 07:15 39.2 C H 122 H 19 104/69 95 07/27/24 07:06 106 H 07/27/24 04:46 36.9 C 107 H 20 130/68 94 07/27/24 03:39 37.5 C 102 H 18 120/62 96 O2 Del Method 07/27/24 11:16 Room Air 07/27/24 08:30 07/27/24 07:59 07/27/24 07:15 07/27/24 07:15 Room Air 07/27/24 07:15 Room Air 07/27/24 07:06 07/27/24 04:46 Room Air 07/27/24 03:39 Room Air all noted and reviewed including below
[2024-07-27 14:28] LABS: Adenovirus PCR Not Detected (NotDetected); Bordetella parapertussis PCR Not Detected (NotDetected); Bordetella pertussis PCR Not Detected (NotDetected); Chlamydia pneumoniae PCR Not Detected (NotDetected); Coronavirus 229E PCR Not Detected (NotDetected); Coronavirus CoV-2 (COVID19)PCR Not Detected (NotDetected); Coronavirus HKU1 PCR Not Detected (NotDetected); Coronavirus NL63 PCR Not Detected (NotDetected); Coronavirus OC43PCR Not Detected (NotDetected); Human Metapneumovirus PCR Not Detected (NotDetected); Influenza A PCR Not Detected (NotDetected); Influenza B PCR Not Detected (NotDetected); Mycoplasma pneumoniae PCR Not Detected (NotDetected); Parainfluenza Virus 1 PCR Not Detected (NotDetected); Parainfluenza Virus 2 PCR Not Detected (NotDetected); Parainfluenza Virus 3 PCR Not Detected (NotDetected); Parainfluenza Virus 4 PCR Not Detected (NotDetected); Respiratory Syncytial VirusPCR Not Detected (NotDetected); Rhinovirus/Enterovirus PCR Not Detected (NotDetected)
[2024-07-27] MEDS: CEFEPIME 2000MG 2,000 MG/20 ML SYR IV SCH (14:30)
[2024-07-27] MEDS: SODIUM CHLORIDE 0.9% 1,000 ML IV SCH (14:31)
[2024-07-27] MEDS: KETOROLAC TROMETHAMINE 15 MG/ML VIAL IV PRN (14:38)
[2024-07-27] MEDS: oxyCODONE HCL IR 5 MG TAB (IMMEDIATE RELEASE) PO PRN (18:44)
[2024-07-27 23:04] LABS: Appearance Urine Clear (Clear); Bacteria Urine Automated None Seen (None Seen); Bilirubin Urine Negative (Negative); Blood Urine Trace (Negative); Cast Urine Automated 0-2 /lpf (0-2); Color Urine Yellow; Epithelial Cell Urine Auto 0-2 /hpf (0-2); Glucose Urine UA Negative (Negative); Ketones Urine Trace (Negative); Leukocyte Esterase Urine Negative (Negative); Nitrite Urine Negative (Negative); Protein Urine Negative (Negative); RBC Urine Automated 0-2 /hpf (0-2); Specific Gravity Urine 1.013 (1.000-1.030); Urobilinogen Urine Negative (Negative); WBC Urine Automated 0-5 /hpf (0-5); pH Urine 5.5 (4.5-7.5)
--- NOTE | 2024-07-27 23:10 | Communication Note ---
Date of Service: July 27, 2024 Overnight developments 12/, 830P Patient very drowsy as per RN. Patient RN unable to give nighttime pills. No headache complaints. Upon repositioning, ecchymosis right ear noted as per RN. CT head No evidence of acute intracranial pathology. AP Encephalopathy Likely secondary to polypharmacy (patient receiving gabapentin, Librium as per AZRA S protocol, oxycodone Rx for knee pain) Right EAC ecchymosis, history of fall Hold Librium for now Hold Eliquis for now 07/28, 445 AM Patient tachycardic with fever of 38.4. No new cough or diarrhea symptoms. Procalcitonin noted to be elevated. AP Sepsis possible hospital-acquired pneumonia Add vancomycin to current cefepime CT chest re: possible pneumonia
--- NOTE | 2024-07-28 01:36 | CT Scan Report ---
Exam(s): CT HEAD Without Contrast EXAM: CT Head Without Intravenous Contrast CLINICAL HISTORY: Reason for exam: ams, eliquis. TECHNIQUE: Axial computed tomography images of the head/brain without intravenous contrast. CTDI is 36.18 mGy and DLP is 625.8 mGy-cm. Automated exposure control was utilized for the study. A dose lowering technique was utilized adhering to the principles of ALARA. COMPARISON: Prior head CT from July 25, 2024. FINDINGS: Brain: Unremarkable. No hemorrhage. No significant white matter disease. No edema. Ventricles: Unremarkable. No ventriculomegaly. Bones/joints: Unremarkable. No acute fracture. Soft tissues: Mild soft tissue swelling over the forehead. Sinuses: Chronic right maxillary sinusitis. No acute sinusitis. Mastoid air cells: Unremarkable as visualized. No mastoid effusion. IMPRESSION: No evidence of acute intracranial pathology. Electronically signed by: Marielle Humphrey MD 07/28/24 01:35 AM
[2024-07-28 06:16] LABS: Basophils # (auto) 0.01 K/uL (0.00-0.20); Basophils % (auto) 0.1 %; Hematocrit (blood only) 31.6 % (42.0-52.0); Hemoglobin 10.9 g/dl (14.0-18.0); Immature Granulocytes # (auto) 0.07 K/uL (0.01-0.20); Immature Granulocytes % (auto) 0.7 %; Lymphocytes # (auto) 0.32 K/uL (1.20-3.40); Lymphocytes % (auto) 3.4 %; Mean Corpuscular Hemoglobin 31.7 pg (25.0-34.0); Mean Corpuscular Hgb Conc 34.5 g/dL (32.0-36.0); Mean Corpuscular Volume 91.9 fL (80.0-100.0); Mean Platelet Volume 11.9 fL (9.4-12.4); Monocytes # (auto) 1.35 K/uL (0.11-0.59); Monocytes % (auto) 14.3 %; Neutrophils # (auto) 7.67 K/uL (1.40-6.50); Neutrophils % (auto) 81.5 %; Platelet Count 125 K/uL (130-400); RDW Coefficient of Variation 13.2 % (11.5-14.5); Red Blood Count 3.44 M/uL (4.70-6.10); White Blood Count 9.42 K/ul (4.8-10.8)
[2024-07-28 06:28] LABS: Calcium 8.1 mg/dl (8.6-10.3); Creatinine Clr Calc Pharmacy 79.6 ml/min; Magnesium 1.8 mg/dl (1.7-2.4)
[2024-07-28] MEDS ORDERED: VANCOMYCIN HCL 1,000 MG/270 ML BAG IV ONE (07:37)
[2024-07-28] MEDS ORDERED: VANCOMYCIN CONSULT ACTIVE PRN ×2 (07:37)
[2024-07-28] MEDS: DAPTOmycin 400 MG in SYRINGE 0 ML IV SCH (07:49)
--- NOTE | 2024-07-28 08:42 | CT Scan Report ---
CT chest diagnostic wo con CLINICAL HISTORY: possible pneumonia TECHNIQUE: Multidetector row helical CT of the chest was performed. Coronal and sagittal reformations were obtained. Automated dose lowering techniques and/or adjustment according to patient size were u tilized for this exam. CT DOSE: 918.39 mGy.cm Comparison: Comparison is made to chest radiograph 06/17/2024 FINDINGS: Lungs and pleura: Atelectasis versus scarring is seen in the dependent portions of the lungs. There i s an 8 mm groundglass nodule in the left lower lobe spares segment (series 4 image 63). Heart and pericardium: Aortic valvular calcifications are seen. Vessels: Moderate atherosclerotic changes in the aorta and coronary arteries. Mediastinum and dereje: Unremarkable. Chest wall and lower neck: Unremarkable. Abdomen: Unremarkable. Bones: Degenerative changes of the thoracic spine. Old healed rib fractures are seen. IMPRESSION: No bryan consolidation is seen. Groundglass nodule in the left lower lobe may represent low-grade florinda nocarcinoma versus infectious/inflammatory process. ACT 112: Negative or not required by law. Electronically signed by: Ck Carroll M.D. 07/28/2024 8:41 AM
[2024-07-28] MEDS: VANCOMYCIN HCL 1,750 MG in SODIUM CHLORIDE 0.9% 500 ML IV ONE (08:53)
--- NOTE | 2024-07-28 13:23 | Pharmacy Report ---
Pharmacy PK ABX Note - Date of Service July 28, 2024 - Assessment and Plan Assessment 78 year old M receiving vancomycin and cefepime for pulmonary coverage. Vancomycin added early this AM. 07/25 blood cultures (-) at 48h. 07/27 repeat blood cultures NGTD @ 24h. MRSA nasal (-). Day #1 of antimicrobial therapy. Plan Vancomycin * Loading dose: 1750 mg IV x 1 * Maintenance dose: 1000 mg IV every 12 hours * Regimen is predicted to achieve target AUC/AYANNA of 400-600 mg/L.hr * Will obtain a level after ~ 48h of therapy or sooner if clinically indicated. Pharmacy will continue to follow and will adjust dose/frequency as necessary. Thank you. Pharmacy has transitioned to AUC monitoring for vancomycin. AUC/AYANNA is the preferred PK/PD target and is associated with decreased risk of nephrotoxicity compared to traditional trough targets.
--- NOTE | 2024-07-28 16:08 | Hospitalist Progress Note ---
Date of Service July 28, 2024 Assessment & Plan (1) Hypotension: Plan: Recurrent Falls This is the patient's fifth fall within a year Patient reports presyncope prior to falling Denies palpitations, shortness of breath Admitted with hypotension and hypoglycemia Question of whether patient is taking his medications appropriately As per friend, patient short-term memory has been progressively declining Patient advised to have medication brought in by friends for verification, patient agreed Recurrent falls likely multifactorial: Rule out orthostatic hypotension - Monitor orthostatic vitals Rule out arrhythmia - No arrhythmias per case monitor so far will need outpatient cardiac monitoring - Echocardiogram showing EF of 55 to 60%, mild mitral regurgitation, mild tricuspid regurgitation Possible bilateral knee pain from arthritis and chronic neuropathy also contributing - Right Knee: Moderate tricompartment primary osteoarthritis. No acute fracture. Left Knee: Moderate to severe tricompartment primary osteoarthritis. No acute abnormality noted. - will consult Ortho - Check vitamin B12, Folate Excessive Tramadol intake? - Patient's daughter reports patient could be taking higher doses of tramadol Initial imaging studies without fractures Reports lower back pain today Will order lumbar spine x-ray Will need PT and OT evaluation Will likely need acute rehab Fever with tachycardia, Confusion Possible alcohol withdrawal Left lower lobe pneumonia versus Malignancy Positive for alcohol level on admission Patient denies drinking alcohol In the evening of hospital day #2,patient presents with confusion, tremors, tachycardia Consistent with possible alcohol withdrawal Started Librium protocol along with alcohol drawl protocol, as needed Ativan Monitor closely 07/27 Blood pressure on the higher side No recurrence of hypotension Currently showing signs and symptoms of possible alcohol withdrawal Continue Librium protocol and alcohol to protocol Having intermittent episodes of fever BioFire negative Chest x-ray showing possible left lower lobe pneumonia Repeat blood cultures pending Urinalysis unremarkable Cefepime IV started 07/28 Alcohol withdrawal: Gabapentin, Librium, oxycodone discontinued overnight as patient was unresponsive Fever, tachycardia, confusion resolving Resume patient's usual gabapentin 900 mg twice daily DC Librium protocol, no narcotics for this patient Pneumonia: Respiratory status stable CT chest: No bryan consolidation is seen. Groundglass nodule in the left lower lobe may represent low-grade adenocarcinoma versus infectious/inflammatory process. 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 Oswaldo Full code Disposition Lives alone at home Friends live nearby PT and OT evaluation Question patient's safety to live alone, May need to transition to acute rehab versus [facility] facility Admission and Anticipated Discharge Date Admission Date: July 25, 2024 Subjective Events overnight noted, patient was again febrile Seen sitting up in bed, awake and alert, having lunch Oriented x 2, answering questions appropriately States he feels okay overall except for low back pain Denies headache, dizziness, cough, shortness of breath, abdominal pain, problems with urination or bowel movement Denies feeling anxious, hallucinations Review of Systems Review of Systems: all noted and negative except for above Physical Exam Physical Exam: General- oriented x 2-3, not in distress, speaks in sentences with no effort or accessory muscle use Eyes- anicteric Neck- no JVD Lungs- clear breath sounds bilaterally, no rales/wheezes Heart- normal rate, regular rhythm; no murmurs Abdomen- normal bowel sounds, nondistended, soft, nontender Extremities- no pretibial edema, no calf tenderness Neuro- alert, oriented x 2-3; no gross focal neurologic deficits Skin- warm & dry Results & Data Results & Data Vital Signs (Past 12 Hours) Vital Signs Temp Pulse Pulse Resp BP BP BP 07/28/24 15:31 36.8 C 95 H 18 110/65 07/28/24 14:50 96 H 07/28/24 11:25 37.2 C 102 H 19 128/67 07/28/24 09:00 07/28/24 08:00 104 H 07/28/24 07:18 37.6 C H 98 H 19 119/70 07/28/24 04:22 107 H 131/71 07/28/24 04:07 126 H 131/71 Pulse Ox O2 Del Method 07/28/24 15:31 98 Room Air 07/28/24 14:50 07/28/24 11:25 96 Room Air 07/28/24 09:00 Room Air 07/28/24 08:00 07/28/24 07:18 94 Room Air 07/28/24 04:22 07/28/24 04:07 all noted and reviewed including below
[2024-07-28] MEDS: VANCOMYCIN HCL 1,000 MG/270 ML BAG IV SCH (16:26)
--- NOTE | 2024-07-28 23:07 | CT Scan Report ---
Exam(s): CT L SPINE EXAM: CT Lumbar Spine Without Intravenous Contrast CLINICAL HISTORY: Reason for exam: back pain, fever, fall, r/o discitis, fracture. TECHNIQUE: Axial computed tomography images of the lumbar spine without intravenous contrast. CTDI is 37.99 mGy and DLP is 1126.74 mGy-cm. Automated exposure control was utilized for the study. A dose lowering technique was utilized adhering to the principles of ALARA. COMPARISON: No relevant prior studies available. FINDINGS: Vertebrae: Chronic lytic spondylolisthesis at L5-S1. Remote fracture deformity of the L3 vertebral body. Diffuse osteopenia throughout the visualized bones. No acute fracture. Mild bilateral sacroiliac joint arthropathy. Discs/spinal canal/neural foramina: No acute findings. Severe bilateral L5-S1 neural foraminal stenosis. No spinal canal stenosis. Soft tissues: Unremarkable. IMPRESSION: No evidence of acute lumbar spine pathology. Electronically signed by: Marielle Humphrey MD 07/28/24 23:07 PM
[2024-07-29 06:16] LABS: Basophils # (auto) 0.01 K/uL (0.00-0.20); Basophils % (auto) 0.2 %; Eosinophils # (auto) 0.07 K/uL (0.00-0.50); Eosinophils % (auto) 1.2 %; Hematocrit (blood only) 29.3 % (42.0-52.0); Immature Granulocytes # (auto) 0.08 K/uL (0.01-0.20); Immature Granulocytes % (auto) 1.4 %; Lymphocytes # (auto) 0.62 K/uL (1.20-3.40); Lymphocytes % (auto) 10.9 %; Mean Corpuscular Hemoglobin 31.4 pg (25.0-34.0); Mean Corpuscular Hgb Conc 34.1 g/dL (32.0-36.0); Mean Corpuscular Volume 92.1 fL (80.0-100.0); Mean Platelet Volume 11.4 fL (9.4-12.4); Monocytes # (auto) 0.78 K/uL (0.11-0.59); Monocytes % (auto) 13.7 %; Neutrophils # (auto) 4.14 K/uL (1.40-6.50); Neutrophils % (auto) 72.6 %; Platelet Count 132 K/uL (130-400); RDW Coefficient of Variation 13.1 % (11.5-14.5); RDW Standard Deviation 44.4 fL (36.4-46.3); Red Blood Count 3.18 M/uL (4.70-6.10)
[2024-07-29 06:30] LABS: BUN Creatinine Ratio 32.3 (10-20); Calcium 7.8 mg/dl (8.6-10.3); Creatinine Clr Calc Pharmacy 72.8 ml/min; Potassium 3.8 mmol/L (3.5-5.1)
[2024-07-29 06:56] LABS: Folate (Folic Acid),Ser orPlas 19.81 ng/ml (>5.38)
--- NOTE | 2024-07-29 07:47 | Orthopedic Consultation ---
Date of Consultation July 29, 2024 Assessment & Plan (1) Bilateral knee pain: (2) Hypotension: (3) Hypokalemia: (4) Syncope and collapse: (5) Hypoglycemia: (6) RUANO (dyspnea on exertion): Plan This is a 78-year-old gentleman who was admitted to the hospital for increased falls recently and has been noted to be having symptoms consistent with alcohol withdrawal. Orthopedics was consulted for his bilateral knee pain. I believe the patient's physical exam, imaging findings, history are most consistent with severe bilateral knee osteoarthritis, however I do believe further workup is needed. On evaluation of the patient's x-rays, however there does appear to be a large calcification of the posterior knee on the left which may represent calcification of the posterior capsule, but may also represent a vascular calcification due to its vicinity to the popliteal artery or, more rarely, could represent a primary malignancy of soft tissue. I will order an MRI of the patients left knee. if indeed this represents a vascular issue, would recommend vascular surgery consultation. if this posterior calcification is more concerning for malignancy, he would need follow up with an orthopaedic oncologist. History of Present Illness Reason for Consultation: bilateral knee pain Attending Physician: Baron Le MD History of Present Illness this is a 78 year old gentleman admitted to the medicine service for recent falls as well as syncope workup. Past medical history significant for A-fib on Eliquis, hypertension, hyperlipidemia, DM2 requiring insulin, hypothyroidism, GERD, gout, chronic anemia (baseline hemoglobin of 13), past tobacco abuse. reportedly, on the mornig of admission the patient felt dizzy and lightheaded as he got up from his chair. He has had recurrent falls over the last couple of months. the patient denied history of alcohol use or abuse but did show positive alcohol levels on admission. He is undergoing extensive medical workup including discussion of the safety of his anticoagulation due to his recent falls. Upon admission, he was noted to be hypotensive and hypoglycemic. he seems to have stabilized from that standpoint. per chart review he has had a few episodes of mild fevers, but nothing higher than 38 degrees celsius. he has been receiving treatment for possible alcohol withdrawal as well. Orthopaedics was consulted last night for bilateral knee pain. the patient notes that his knee pain has been present for many years. he denies any real trauma to either knee during any of his falls. he states he was told before that he had bad arthritis and thinks that is the pain he is feeling. he denies any additional areas of pain besides his bilateral knees. patient is only really oriented to person and place and is unable to provide additional history Allergies Allergy/AdvReac Type Severity Reaction Status Date / Time No Known Allergies Allergy Unverified 07/25/24 09:09 Home Medications Medication Instructions Recorded Confirmed Type diltiazem HCl 120 mg capsule,24 120 mg PO DAILY #0 caps 05/31/12 07/25/24 History hr,extended release furosemide 20 mg tablet 20 mg PO DAILY #0 tabs 05/31/12 07/25/24 History insulin glargine-yfgn 100 unit/mL 25 - 40 unit subcut UD ##0 05/31/12 07/25/24 History (3 mL) subcutaneous pen levothyroxine 137 mcg tablet 137 mcg PO 6XWK #0 tabs 05/31/12 07/25/24 History allopurinol 100 mg tablet 100 mg PO DAILY 07/25/24 07/25/24 History apixaban 5 mg tablet (Eliquis) 5 mg PO BID 07/25/24 07/25/24 History ascorbic acid (vitamin C) 500 mg 500 mg PO Q OTHER DAY 07/25/24 07/25/24 History tablet (Vitamin C) aspirin 81 mg tablet,delayed 81 mg PO DAILY 07/25/24 07/25/24 History release atenolol 25 mg tablet 25 - 50 mg PO UD 07/25/24 07/25/24 History atorvastatin 80 mg tablet 40 mg PO HS 07/25/24 07/25/24 History capsaicin 0.075 % topical cream 1 applic topical DAILY PRN Pain 07/25/24 07/25/24 History cholecalciferol (vitamin D3) 25 50 mcg PO DAILY 07/25/24 07/25/24 History mcg (1,000 unit) tablet (Vitamin D3) cyanocobalamin (vitamin B-12) 1,000 mcg PO 3XWK 07/25/24 07/25/24 History 1,000 mcg tablet (Vitamin B-12) diphenhydramine HCl 25 mg capsule 25 mg PO HS 07/25/24 07/25/24 History (Benadryl) ferrous sulfate 325 mg (65 mg 325 mg PO Q OTHER DAY 07/25/24 07/25/24 History iron) tablet gabapentin 300 mg capsule 900 mg PO BID 07/25/24 07/25/24 History glucosamine sulfate 500 mg tablet 1,000 mg PO DAILY 07/25/24 07/25/24 History (Glucosamine) lidocaine 5 % topical patch 1 patch topical DAILY 07/25/24 07/25/24 History lisinopril 20 1 tab PO DAILY 07/25/24 07/25/24 History mg-hydrochlorothiazide 25 mg tablet melatonin 3 mg tablet 3 mg PO HS 07/25/24 07/25/24 History pantoprazole 40 mg tablet,delayed 40 mg PO DAILY 07/25/24 07/25/24 History release polyethylene glycol 3350 17 gram 17 g PO DAILY 07/25/24 07/25/24 History oral powder packet (Miralax) potassium gluconate 550 mg (90 mg) 550 mg PO DAILY 07/25/24 07/25/24 History tablet semaglutide 1 mg/dose (4 mg/3 mL) 1 mg subcut WK 07/25/24 07/25/24 History subcutaneous pen injector tramadol 50 mg tablet 50 mg PO Q6H PRN Pain 07/25/24 07/25/24 History Patient History Medical History Atrial fibrillation Sleep apnea Dyslipidemia Hypertension Type 2 diabetes mellitus Social History Smoking Status: Never smoker Hx Alcohol Use: No Hx Substance Use: No Preferred Language: Finnish Communication Ability: Impaired Beliefs That Will Affect Care: None Current Living Situation: Alone Other Information That Helps Us Care for You: No Feels Safe at Home: Yes Safety Concerns: Afraid for Self Assistive Devices: None Physical Exam Physical Exam: Bilateral knees: Tenderness to palpation at the joint line bilaterally. Tenderness to palpation at the medial and lateral joint lines. Patient demonstrates active knee range of motion from 5 to 120 degrees. Sensation intact bilaterally and equal bilaterally, but diminished at baseline per the patient. His feet are warm and well-perfused. Results & Data Vital Signs (Past 12 Hours) Vital Signs Temp Pulse Pulse Resp BP BP Pulse Ox 07/29/24 07:36 36.7 C 75 18 98/61 L 98 07/29/24 07:32 92 H 07/29/24 02:38 36.9 C 106 H 20 116/69 97 07/28/24 23:39 36.7 C 109 H 20 110/68 96 07/28/24 22:54 100 H 07/28/24 22:53 100 H 19 95 07/28/24 20:19 37.3 C 110 H 20 121/71 95 07/28/24 20:00 O2 Del Method 07/29/24 07:36 Room Air 07/29/24 07:32 07/29/24 02:38 Room Air 07/28/24 23:39 CPAP 07/28/24 22:54 07/28/24 22:53 07/28/24 20:19 Room Air 07/28/24 20:00 Room Air
--- NOTE | 2024-07-29 08:29 | Hospitalist Progress Note ---
Date of Service July 29, 2024 Assessment & Plan (1) Hypotension: Plan: Recurrent Falls This is the patient's fifth fall within a year Patient reports presyncope prior to falling Denies palpitations, shortness of breath Admitted with hypotension and hypoglycemia Question of whether patient is taking his medications appropriately As per friend, patient short-term memory has been progressively declining Patient advised to have medication brought in by friends for verification, patient agreed Recurrent falls likely multifactorial: Rule out orthostatic hypotension - Monitor orthostatic vitals Rule out arrhythmia - No arrhythmias per environmental monitoring specialist so far will need outpatient cardiac monitoring - Echocardiogram showing EF of 55 to 60%, mild mitral regurgitation, mild tricuspid regurgitation Possible bilateral knee pain from arthritis and chronic neuropathy also contributing - Right Knee: Moderate tricompartment primary osteoarthritis. No acute fracture. Left Knee: Moderate to severe tricompartment primary osteoarthritis. No acute abnormality noted. - Orthopedics consulted - L knee MRI ordered - vitamin B12, Folate levels wnl Excessive Tramadol intake? - Patient's daughter reports patient could be taking higher doses of tramadol Initial imaging studies without fractures + some lower back pain Lumbar spine CT - FINDINGS: Vertebrae: Chronic lytic spondylolisthesis at L5-S1. Remote fracture deformity of the L3 vertebral body. Diffuse osteopenia throughout the visualized bones. No acute fracture. Mild bilateral sacroiliac joint arthropathy. Discs/spinal canal/neural foramina: No acute findings. Severe bilateral L5-S1 neural foraminal stenosis. No spinal canal stenosis. Soft tissues: Unremarkable. IMPRESSION: No evidence of acute lumbar spine pathology. Will need PT and OT evaluation Will likely need acute rehab Fever with tachycardia, Confusion Possible alcohol withdrawal Left lower lobe pneumonia versus Malignancy Positive for alcohol level on admission Patient denies drinking alcohol In the evening of hospital day #2,patient presents with confusion, tremors, tachycardia Consistent with possible alcohol withdrawal Started Librium protocol along with alcohol drawl protocol, as needed Ativan Monitor closely 07/27 Blood pressure on the higher side, No recurrence of hypotension Currently showing signs and symptoms of possible alcohol withdrawal Continue Librium protocol and alcohol to protocol Having intermittent episodes of fever BioFire negative Chest x-ray showing possible left lower lobe pneumonia Repeat blood cultures - negat. for 48 hrs Urinalysis unremarkable Cefepime IV started 07/28 Alcohol withdrawal: Gabapentin, Librium, oxycodone discontinued overnight as patient was unresponsive Fever, tachycardia, confusion resolving Resume patient's usual gabapentin 900 mg twice daily DC Librium protocol, no narcotics for this patient 07/29 Pt currently without any signs of withdrawal, afebrile Pneumonia Respiratory status stable CT chest: No bryan consolidation is seen. Groundglass nodule in the left lower lobe may represent low-grade adenocarcinoma versus infectious/inflammatory process. Nasal MRSA negative, DC vancomycin Continue cefepime Check urine Legionella Chronic A-fib on Eliquis, in RVR Alcohol withdrawal , Pneumonia likely contributing Continue usual atenolol, diltiazem Already on Eliquis Monitor Traumatic neck pain, patient without radiculopathy symptoms -- Cervical MRI not revealing any fractures Hyperlipidemia, on statin Rx DM2 insulin requiring -- patient hypoglycemic at the ER, unknown baseline control -- A1c 7.0 clinical systems educator consulted Hypothyroidism, euthyroid based on TSH GERD on PPI chronic anemia, hemoglobin close to baseline Possible alcohol abuse, patient denies recent EtOH intake but with detectable blood alcohol level, abdominal imaging shows chronic liver disease past tobacco abuse DVT prophylaxis. Eliquis Full code Disposition Lives alone at home Friends live nearby PT and OT evaluation Question patient's safety to live alone, May need to transition to acute rehab versus penitentiary facility Admission and Anticipated Discharge Date Admission Date: July 25, 2024 Subjective Pt seen in follow up afebrile laying flat in bed in NAD reports chronic knee pain - pt seen by ortho this AM Able to answer simple questions appropriately Denies headache, dizziness, cough, shortness of breath, abdominal pain, problems with urination or bowel movement Review of Systems Review of Systems: All systems reviewed & are unremarkable except as noted in Subjective Physical Exam Physical Exam: General- oriented x 2-3, not in distress, speaks in sentences with no effort or accessory muscle use Eyes- anicteric Neck- no JVD Lungs- clear breath sounds bilaterally, no rales/wheezes Heart- normal rate, regular rhythm; no murmurs Abdomen- normal bowel sounds, nondistended, soft, nontender Extremities- no pretibial edema, no calf tenderness Neuro- alert, oriented x 2-3; no gross focal neurologic deficits Skin- warm & dry Results & Data Results & Data Vital Signs (Past 12 Hours) Vital Signs Temp Pulse Pulse Resp BP BP Pulse Ox 07/29/24 07:36 36.7 C 75 18 98/61 L 98 07/29/24 07:32 92 H 07/29/24 02:38 36.9 C 106 H 20 116/69 97 07/28/24 23:39 36.7 C 109 H 20 110/68 96 07/28/24 22:54 100 H 07/28/24 22:53 100 H 19 95 O2 Del Method 07/29/24 07:36 Room Air 07/29/24 07:32 07/29/24 02:38 Room Air 07/28/24 23:39 CPAP 07/28/24 22:54 07/28/24 22:53 Laboratory Results 07/29/24 07/29/24 07/28/24 Range/Units 07:19 05:53 20:18 WBC 5.70 (4.8-10.8) K/ul RBC 3.18 L (4.70-6.10) M/uL Hgb 10.0 L (14.0-18.0) g/dl Hct 29.3 L (42.0-52.0) % MCV 92.1 (80.0-100.0) fL MCH 31.4 (25.0-34.0) pg MCHC 34.1 (32.0-36.0) g/dL RDW Std Deviation 44.4 (36.4-46.3) fL RDW Coeff of Asiya 13.1 (11.5-14.5) % Plt Count 132 (130-400) K/uL MPV 11.4 (9.4-12.4) fL Immature Gran % (Auto) 1.4 % Neut % (Auto) 72.6 % Lymph % (Auto) 10.9 % Potter % (Auto) 13.7 % Eos % (Auto) 1.2 % Baso % (Auto) 0.2 % Neut # (Auto) 4.14 (1.40-6.50) K/uL Lymph # (Auto) 0.62 L (1.20-3.40) K/uL Potter # (Auto) 0.78 H (0.11-0.59) K/uL Eos # (Auto) 0.07 (0.00-0.50) K/uL Baso # (Auto) 0.01 (0.00-0.20) K/uL Immature Gran # (Auto) 0.08 (0.01-0.20) K/uL Sodium 138 (136-145) mmol/L Potassium 3.8 (3.5-5.1) mmol/L Chloride 107 (98-107) mmol/L Carbon Dioxide 24 (21-32) mmol/L Anion Gap 7 (3-11) BUN 30 H (6-23) mg/dl Creatinine 0.93 (0.6-1.4) mg/dl Est Cr Clr Drug Dosing 72.8 ml/min eGFR 84.57 BUN/Creatinine Ratio 32.3 H (10-20) Glucose 157 H (70-99(Fasting)) mg/dl POC Glucose 202 H 202 H (70-99) mg/dl Calcium 7.8 L (8.6-10.3) mg/dl Vitamin B12 473 (180-914) pg/ml Folate 19.81 (>5.38) ng/ml Urine Legionella Ag 07/28/24 07/28/24 07/28/24 Range/Units 18:05 15:55 11:26 WBC (4.8-10.8) K/ul RBC (4.70-6.10) M/uL Hgb (14.0-18.0) g/dl Hct (42.0-52.0) % MCV (80.0-100.0) fL MCH (25.0-34.0) pg MCHC (32.0-36.0) g/dL RDW Std Deviation (36.4-46.3) fL RDW Coeff of Asiya (11.5-14.5) % Plt Count (130-400) K/uL MPV (9.4-12.4) fL Immature Gran % (Auto) % Neut % (Auto) % Lymph % (Auto) % Potter % (Auto) % Eos % (Auto) % Baso % (Auto) % Neut # (Auto) (1.40-6.50) K/uL Lymph # (Auto) (1.20-3.40) K/uL Potter # (Auto) (0.11-0.59) K/uL Eos # (Auto) (0.00-0.50) K/uL Baso # (Auto) (0.00-0.20) K/uL Immature Gran # (Auto) (0.01-0.20) K/uL Sodium (136-145) mmol/L Potassium (3.5-5.1) mmol/L Chloride (98-107) mmol/L Carbon Dioxide (21-32) mmol/L Anion Gap (3-11) BUN (6-23) mg/dl Creatinine (0.6-1.4) mg/dl Est Cr Clr Drug Dosing ml/min eGFR BUN/Creatinine Ratio (10-20) Glucose (70-99(Fasting)) mg/dl POC Glucose 147 H 205 H (70-99) mg/dl Calcium (8.6-10.3) mg/dl Vitamin B12 (180-914) pg/ml Folate (>5.38) ng/ml Urine Legionella Ag Pending Medications Administered Current Inpatient Medications Acetaminophen (Acetaminophen 500 Mg Tab) 500 mg PO Q6H PRN PRN Reason: fever/pain Stop: 08/24/24 07:54 Last Admin: 07/29/24 02:33 Dose: 500 mg Allopurinol (Allopurinol 100 Mg Tab) 100 mg PO DAILY [facility] Stop: 08/25/24 08:59 Last Admin: 07/28/24 08:52 Dose: 100 mg Apixaban (Apixaban 5 Mg Tablet) 5 mg PO BID [facility] Stop: 08/25/24 09:59 Last Admin: 07/27/24 20:26 Dose: Not Given Atorvastatin Calcium (Atorvastatin 40 Mg Tab) 40 mg PO HS [facility] Stop: 08/25/24 20:59 Last Admin: 07/28/24 20:21 Dose: 40 mg Chlordiazepoxide HCl (Chlordiazepoxide Hcl 25 Mg Cap) 25 mg PO Q8H [facility] Last Admin: 07/27/24 20:26 Dose: Not Given Dextrose (Dextrose 50% 50 Ml Syringe) 25 - 50 ml IV UD PRN; Protocol PRN Reason: Hypoglycemia Protocol Stop: 08/24/24 10:29 Diclofenac Sodium (Diclofenac Sod 1% Gel 100 Gm Tube) 2 gm EXT Q6H PRN; Protocol PRN Reason: joint pain Stop: 08/24/24 22:49 Last Admin: 07/26/24 21:14 Dose: 2 gm Diltiazem HCl (Diltiazem Hcl 120 Mg Capcr) 120 mg PO DAILY [facility] Stop: 08/25/24 08:59 Last Admin: 07/28/24 08:52 Dose: 120 mg Ferrous Sulfate (Ferrous Sulfate 325 Mg Tab) 325 mg PO Q2D [facility] Stop: 08/25/24 08:59 Last Admin: 07/28/24 08:52 Dose: 325 mg Folic Acid (Folic Acid 1 Mg Tab) 1 mg PO QAM [facility] Stop: 08/24/24 08:59 Last Admin: 07/28/24 08:52 Dose: 1 mg Gabapentin (Gabapentin 300 Mg Cap) 900 mg PO BID [facility] Stop: 08/24/24 22:59 Last Admin: 07/28/24 20:21 Dose: 900 mg Glucagon (Glucagon For Inj 1 Mg Vial) 1 mg SQ UD PRN; Protocol PRN Reason: Hypoglycemia Protocol Stop: 08/24/24 10:29 Glucosamine Sulfate (Glucosamine Sulfate 500 Mg Cap) 1,000 mg PO DAILY [facility] Stop: 08/25/24 08:59 Last Admin: 07/28/24 08:51 Dose: 1,000 mg Glucose (Glucose 40% Gel 15 Gm Tube) 15 - 30 gm PO UD PRN; Protocol PRN Reason: Hypoglycemia Protocol Stop: 08/24/24 10:29 Glucose (Glucose 10 Tab/Tube) 4 - 8 tab PO UD PRN; Protocol PRN Reason: Hypoglycemia Protocol Stop: 08/24/24 10:29 Promethazine HCl (Phenergan) 6.25 mg in 50.25 mls @ 201 mls/hr IV Q6H PRN PRN Reason: Nausea And Vomiting Stop: 08/24/24 07:54 Cefepime HCl (Maxipime 2000mg) 2,000 mg in 20 mls @ 5 mls/min IV Q8H [facility]; Protocol Stop: 08/01/24 12:59 Last Admin: 07/29/24 04:07 Dose: 5 mls/min Insulin Aspart (Insulin Aspart Per Unit Charge) 0 units SC ACHS [facility] Stop: 08/24/24 11:29 Last Admin: 07/28/24 20:30 Dose: 3 units Insulin Glargine (Lantus Per Unit Charge) 5 units SQ DAILY [facility] Stop: 08/26/24 08:59 Last Admin: 07/28/24 08:53 Dose: 5 units Ketorolac Tromethamine (Ketorolac Tromethamine 15 Mg/Ml Vial) 15 mg IV Q6H PRN PRN Reason: moderate to severe pain Stop: 08/01/24 13:58 Last Admin: 07/28/24 21:53 Dose: 15 mg Levothyroxine Sodium (Levothyroxine Sodium 137 Mcg Tablet) 137 mcg PO [id number] [facility] Stop: 08/26/24 06:29 Last Admin: 07/29/24 04:52 Dose: 137 mcg Lidocaine (Lidocaine 5% 1 Patch) 1 patch TD HS [facility] Stop: 08/24/24 20:59 Last Admin: 07/28/24 20:21 Dose: 1 patch Lidocaine (Lidocaine 5% 1 Patch) 1 patch TD [facility] Stop: 08/24/24 20:59 Last Admin: 07/28/24 20:22 Dose: 1 patch Lorazepam (Lorazepam 0.5 Mg Tab) 0.5 mg PO TID PRN PRN Reason: Anxiety Stop: 08/24/24 07:54 Lorazepam (Lorazepam 2 Mg/1 Ml Vial) 1 mg IV UD PRN; Protocol PRN Reason: EtOH Withdrawal AWSS Score 6,7 Stop: 08/24/24 23:19 Last Admin: 07/27/24 04:53 Dose: 1 mg Lorazepam (Lorazepam 2 Mg/1 Ml Vial) 2 mg IV UD PRN; Protocol PRN Reason: EtOH Withdrawal AWSS Score 8,9 Stop: 08/24/24 23:19 Last Admin: 07/26/24 09:39 Dose: 2 mg Lorazepam (Lorazepam 2 Mg/1 Ml Vial) 3 mg IV ONCE PRN; Protocol PRN Reason: EtOH Withdrawal AWSS Score 10+ Melatonin (Melatonin 3 Mg Tab) 3 mg PO HS PRN PRN Reason: Sleep Stop: 08/25/24 20:59 Metoprolol Tartrate (Metoprolol Tartrate 1 Mg/Ml Vial) 5 mg IV Q6 PRN PRN Reason: heart rate > 120 Stop: 08/25/24 17:59 Last Admin: 07/28/24 04:07 Dose: 5 mg Metoprolol Tartrate (Metoprolol Tartrate 50 Mg Tab) 50 mg PO BID [facility] Stop: 08/25/24 20:59 Last Admin: 07/28/24 20:21 Dose: 50 mg Miscellaneous (Carbohydrates For Hypoglycemia ) 15 - 30 gm PO UD PRN PRN Reason: Hypoglycemia Protocol Stop: 08/24/24 10:29 Miscellaneous (Remove Lidoderm Patch) 1 each N/A Q24H [facility] Stop: 08/25/24 08:59 Last Admin: 07/28/24 08:52 Dose: 1 each Miscellaneous (Remove Lidoderm Patch) 1 each N/A Q24H [facility] Stop: 08/25/24 08:59 Last Admin: 07/28/24 08:52 Dose: 1 each Multivitamins (Multivitamin Tab) 1 tab PO QAM [facility] Stop: 08/24/24 08:59 Last Admin: 07/28/24 08:52 Dose: 1 tab Pantoprazole Sodium (Pantoprazole 40 Mg Tab) 40 mg PO DAILY [facility] Stop: 08/25/24 08:59 Last Admin: 07/28/24 08:52 Dose: 40 mg Polyethylene Glycol (Polyethylene (Miralax) 17 Gm Pack) 17 gm PO DAILY [facility] Stop: 08/25/24 08:59 Last Admin: 07/28/24 08:52 Dose: 17 gm Thiamine HCl (Thiamine Hcl 100 Mg Tab) 100 mg PO QAM [facility] Stop: 08/25/24 08:59 Last Admin: 07/28/24 08:52 Dose: 100 mg
[2024-07-29] MEDS ORDERED: chlordiazePOXIDE HCl 5 MG CAP PO SCH (16:00)
[2024-07-29] MEDS: guaiFENesin 600 MG TABCR PO SCH (20:32)
[2024-07-30] MEDS: MELATONIN 3 MG TAB PO PRN (02:03)
[2024-07-30 07:02] LABS: Hematocrit (blood only) 31.2 % (42.0-52.0); Hemoglobin 10.2 g/dl (14.0-18.0); Mean Corpuscular Hemoglobin 30.6 pg (25.0-34.0); Mean Corpuscular Hgb Conc 32.7 g/dL (32.0-36.0); Mean Corpuscular Volume 93.7 fL (80.0-100.0); Mean Platelet Volume 11.7 fL (9.4-12.4); Platelet Count 155 K/uL (130-400); RDW Coefficient of Variation 13.4 % (11.5-14.5); RDW Standard Deviation 45.7 fL (36.4-46.3); Red Blood Count 3.33 M/uL (4.70-6.10); White Blood Count 4.66 K/ul (4.8-10.8)
[2024-07-30 07:26] LABS: Calcium 8.2 mg/dl (8.6-10.3); Creatinine Clr Calc Pharmacy 67.4 ml/min; Magnesium 2.2 mg/dl (1.7-2.4); Phosphorus 2.7 mg/dl (2.5-4.9); Potassium 3.8 mmol/L (3.5-5.1)
--- NOTE | 2024-07-30 08:32 | Hospitalist Progress Note ---
Date of Service July 30, 2024 Assessment & Plan (1) Hypotension: Plan: Recurrent Falls This is the patient's fifth fall within a year Patient reports presyncope prior to falling Denies palpitations, shortness of breath Admitted with hypotension and hypoglycemia Question of whether patient is taking his medications appropriately As per friend, patient short-term memory has been progressively declining Patient advised to have medication brought in by friends for verification, patient agreed Recurrent falls likely multifactorial: Rule out orthostatic hypotension - Monitor orthostatic vitals Rule out arrhythmia - No arrhythmias per monitor technician so far will need outpatient cardiac monitoring - Echocardiogram showing EF of 55 to 60%, mild mitral regurgitation, mild tricuspid regurgitation Possible bilateral knee pain from arthritis and chronic neuropathy also contributing - Right Knee: Moderate tricompartment primary osteoarthritis. No acute fracture. Left Knee: Moderate to severe tricompartment primary osteoarthritis. No acute abnormality noted. - Orthopedics consulted - L knee MRI obtained IMPRESSION: 1. 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 2. Marked tri-compartmental osteoarthritic changes. 3. Multiple intraarticular loose bodies and mild joint effusion. 4. Anterior cruciate and posterior cruciate ligaments are not visualized likely chronically torn. 5. Meniscal loss with the destruction of expected architecture with extrusion of the remaining part likely macerated chronically degenerated/torn. 6. Marked enothesopathy of quadriceps and patellar tendons. 7. MCL grade II sprain. 8. LCL (grade III injury). 9. Periarticular soft tissue edema. - vitamin B12, Folate levels wnl Excessive Tramadol intake? - Patient's daughter reports patient could be taking higher doses of tramadol Initial imaging studies without fractures + some lower back pain Lumbar spine CT - FINDINGS: Vertebrae: Chronic lytic spondylolisthesis at L5-S1. Remote fracture deformity of the L3 vertebral body. Diffuse osteopenia throughout the visualized bones. No acute fracture. Mild bilateral sacroiliac joint arthropathy. Discs/spinal canal/neural foramina: No acute findings. Severe bilateral L5-S1 neural foraminal stenosis. No spinal canal stenosis. Soft tissues: Unremarkable. IMPRESSION: No evidence of acute lumbar spine pathology. Will need PT and OT evaluation Will likely need acute rehab Fever with tachycardia, Confusion Possible alcohol withdrawal Left lower lobe pneumonia versus Malignancy Positive for alcohol level on admission Patient denies drinking alcohol In the evening of hospital day #2,patient presents with confusion, tremors, tachycardia Consistent with possible alcohol withdrawal Started Librium protocol along with alcohol drawl protocol, as needed Ativan Monitor closely 07/27 Blood pressure on the higher side, No recurrence of hypotension Currently showing signs and symptoms of possible alcohol withdrawal Continue Librium protocol and alcohol to protocol Having intermittent episodes of fever BioFire negative Chest x-ray showing possible left lower lobe pneumonia Repeat blood cultures - negat. for 48 hrs Urinalysis unremarkable Cefepime IV started 07/28 Alcohol withdrawal: Gabapentin, Librium, oxycodone discontinued overnight as patient was unresponsive Fever, tachycardia, confusion resolving Resume patient's usual gabapentin 900 mg twice daily DC Librium protocol, no narcotics for this patient 07/29 Pt currently without any signs of withdrawal, afebrile Pneumonia Respiratory status stable CT chest: No bryan consolidation is seen. Groundglass nodule in the left lower lobe may represent low-grade adenocarcinoma versus infectious/inflammatory process. Nasal MRSA negative, DC vancomycin Continue cefepime Check urine Legionella Chronic A-fib on Eliquis, in RVR Alcohol withdrawal , Pneumonia likely contributing Continue usual atenolol, diltiazem Already on Eliquis Monitor Traumatic neck pain, patient without radiculopathy symptoms -- Cervical MRI not revealing any fractures Hyperlipidemia, on statin Rx DM2 insulin requiring -- patient hypoglycemic at the ER, unknown baseline control -- A1c 7.0 nursing educator consulted Hypothyroidism, euthyroid based on TSH GERD on PPI chronic anemia, hemoglobin close to baseline Possible alcohol abuse, patient denies recent EtOH intake but with detectable blood alcohol level, abdominal imaging shows chronic liver disease past tobacco abuse DVT prophylaxis. Eliquis Full code Disposition Lives alone at home Friends live nearby PT and OT evaluation Question patient's safety to live alone, May need to transition to acute rehab versus assisted facility Admission and Anticipated Discharge Date Admission Date: July 25, 2024 Subjective Pt seen in follow up afebrile sitting up in bed in NAD reports chronic knee pain - pt seen by ortho Awake, alert, able to answer simple questions appropriately. Denies headache, dizziness, cough, shortness of breath, abdominal pain, problems with urination or bowel movement Review of Systems Review of Systems: All systems reviewed & are unremarkable except as noted in Subjective Physical Exam Physical Exam: General- oriented x 3, not in distress, speaks in sentences with no effort or accessory muscle use Eyes- anicteric Neck- no JVD Lungs- clear breath sounds bilaterally, no rales/wheezes Heart- normal rate, regular rhythm; no murmurs Abdomen- normal bowel sounds, nondistended, soft, nontender Extremities- no pretibial edema, no calf tenderness Neuro- alert, oriented x 3; no gross focal neurologic deficits Skin- warm & dry Results & Data Results & Data Vital Signs (Past 12 Hours) Vital Signs Temp Pulse Pulse Resp BP Pulse Ox O2 Del Method 07/30/24 07:34 36.6 C 86 18 137/78 95 Room Air 07/30/24 03:13 36.8 C 70 17 134/68 94 Room Air 07/30/24 02:14 89 20 98 07/30/24 00:14 36.8 C 95 H 16 131/81 97 Room Air 07/29/24 23:14 97 H 07/29/24 20:35 36.4 C L 91 H 18 135/76 Laboratory Results 07/30/24 07/30/24 07/29/24 Range/Units 07:34 06:22 20:47 WBC 4.66 L (4.8-10.8) K/ul RBC 3.33 L (4.70-6.10) M/uL Hgb 10.2 L (14.0-18.0) g/dl Hct 31.2 L (42.0-52.0) % MCV 93.7 (80.0-100.0) fL MCH 30.6 (25.0-34.0) pg MCHC 32.7 (32.0-36.0) g/dL RDW Std Deviation 45.7 (36.4-46.3) fL RDW Coeff of Asiya 13.4 (11.5-14.5) % Plt Count 155 (130-400) K/uL MPV 11.7 (9.4-12.4) fL Sodium 140 (136-145) mmol/L Potassium 3.8 (3.5-5.1) mmol/L Chloride 108 H (98-107) mmol/L Carbon Dioxide 26 (21-32) mmol/L Anion Gap 6 (3-11) BUN 30 H (6-23) mg/dl Creatinine 1.00 (0.6-1.4) mg/dl Est Cr Clr Drug Dosing 67.4 ml/min eGFR 77.52 BUN/Creatinine Ratio 30.0 H (10-20) Glucose 141 H (70-99(Fasting)) mg/dl POC Glucose 148 H 202 H (70-99) mg/dl Calcium 8.2 L (8.6-10.3) mg/dl Phosphorus 2.7 (2.5-4.9) mg/dl Magnesium 2.2 (1.7-2.4) mg/dl 07/29/24 07/29/24 Range/Units 16:07 10:52 WBC (4.8-10.8) K/ul RBC (4.70-6.10) M/uL Hgb (14.0-18.0) g/dl Hct (42.0-52.0) % MCV (80.0-100.0) fL MCH (25.0-34.0) pg MCHC (32.0-36.0) g/dL RDW Std Deviation (36.4-46.3) fL RDW Coeff of Asiya (11.5-14.5) % Plt Count (130-400) K/uL MPV (9.4-12.4) fL Sodium (136-145) mmol/L Potassium (3.5-5.1) mmol/L Chloride (98-107) mmol/L Carbon Dioxide (21-32) mmol/L Anion Gap (3-11) BUN (6-23) mg/dl Creatinine (0.6-1.4) mg/dl Est Cr Clr Drug Dosing ml/min eGFR BUN/Creatinine Ratio (10-20) Glucose (70-99(Fasting)) mg/dl POC Glucose 162 H 175 H (70-99) mg/dl Calcium (8.6-10.3) mg/dl Phosphorus (2.5-4.9) mg/dl Magnesium (1.7-2.4) mg/dl Medications Administered Current Inpatient Medications Acetaminophen (Acetaminophen 500 Mg Tab) 500 mg PO Q6H PRN PRN Reason: fever/pain Stop: 08/24/24 07:54 Last Admin: 07/29/24 22:56 Dose: 500 mg Allopurinol (Allopurinol 100 Mg Tab) 100 mg PO DAILY [facility] Stop: 08/25/24 08:59 Last Admin: 07/29/24 08:41 Dose: 100 mg Apixaban (Apixaban 5 Mg Tablet) 5 mg PO BID [facility] Stop: 08/25/24 09:59 Last Admin: 07/27/24 20:26 Dose: Not Given Atorvastatin Calcium (Atorvastatin 40 Mg Tab) 40 mg PO HS [facility] Stop: 08/25/24 20:59 Last Admin: 07/29/24 20:33 Dose: 40 mg Chlordiazepoxide HCl (Chlordiazepoxide Hcl 25 Mg Cap) 25 mg PO Q8H [facility] Last Admin: 07/27/24 20:26 Dose: Not Given Dextrose (Dextrose 50% 50 Ml Syringe) 25 - 50 ml IV UD PRN; Protocol PRN Reason: Hypoglycemia Protocol Stop: 08/24/24 10:29 Diclofenac Sodium (Diclofenac Sod 1% Gel 100 Gm Tube) 2 gm EXT Q6H PRN; Protocol PRN Reason: joint pain Stop: 08/24/24 22:49 Last Admin: 07/29/24 08:43 Dose: 2 gm Diltiazem HCl (Diltiazem Hcl 120 Mg Capcr) 120 mg PO DAILY [facility] Stop: 08/25/24 08:59 Last Admin: 07/29/24 08:41 Dose: 120 mg Ferrous Sulfate (Ferrous Sulfate 325 Mg Tab) 325 mg PO Q2D [facility] Stop: 08/25/24 08:59 Last Admin: 07/28/24 08:52 Dose: 325 mg Folic Acid (Folic Acid 1 Mg Tab) 1 mg PO QAM [facility] Stop: 08/24/24 08:59 Last Admin: 07/29/24 08:40 Dose: 1 mg Gabapentin (Gabapentin 300 Mg Cap) 900 mg PO BID [facility] Stop: 08/24/24 22:59 Last Admin: 07/29/24 20:32 Dose: 900 mg Glucagon (Glucagon For Inj 1 Mg Vial) 1 mg SQ UD PRN; Protocol PRN Reason: Hypoglycemia Protocol Stop: 08/24/24 10:29 Glucosamine Sulfate (Glucosamine Sulfate 500 Mg Cap) 1,000 mg PO DAILY [facility] Stop: 08/25/24 08:59 Last Admin: 07/29/24 08:38 Dose: 1,000 mg Glucose (Glucose 40% Gel 15 Gm Tube) 15 - 30 gm PO UD PRN; Protocol PRN Reason: Hypoglycemia Protocol Stop: 08/24/24 10:29 Glucose (Glucose 10 Tab/Tube) 4 - 8 tab PO UD PRN; Protocol PRN Reason: Hypoglycemia Protocol Stop: 08/24/24 10:29 Guaifenesin (Guaifenesin 600 Mg Tabcr) 600 mg PO Q12 [facility] Stop: 08/28/24 20:59 Last Admin: 07/29/24 20:32 Dose: 600 mg Promethazine HCl (Phenergan) 6.25 mg in 50.25 mls @ 201 mls/hr IV Q6H PRN PRN Reason: Nausea And Vomiting Stop: 08/24/24 07:54 Cefepime HCl (Maxipime 2000mg) 2,000 mg in 20 mls @ 5 mls/min IV Q8H [facility]; Protocol Stop: 08/01/24 12:59 Last Admin: 07/30/24 04:12 Dose: 5 mls/min Insulin Aspart (Insulin Aspart Per Unit Charge) 0 units SC ACHS [facility] Stop: 08/24/24 11:29 Last Admin: 07/29/24 21:03 Dose: 3 units Insulin Glargine (Lantus Per Unit Charge) 5 units SQ DAILY [facility] Stop: 08/26/24 08:59 Last Admin: 07/29/24 08:46 Dose: 5 units Ketorolac Tromethamine (Ketorolac Tromethamine 15 Mg/Ml Vial) 15 mg IV Q6H PRN PRN Reason: moderate to severe pain Stop: 08/01/24 13:58 Last Admin: 07/30/24 01:31 Dose: 15 mg Levothyroxine Sodium (Levothyroxine Sodium 137 Mcg Tablet) 137 mcg PO [id number] [facility] Stop: 08/26/24 06:29 Last Admin: 07/30/24 04:12 Dose: 137 mcg Lidocaine (Lidocaine 5% 1 Patch) 1 patch TD HS [facility] Stop: 08/24/24 20:59 Last Admin: 07/29/24 20:33 Dose: 1 patch Lidocaine (Lidocaine 5% 1 Patch) 1 patch TD [facility] Stop: 08/24/24 20:59 Last Admin: 07/29/24 20:33 Dose: 1 patch Lorazepam (Lorazepam 0.5 Mg Tab) 0.5 mg PO TID PRN PRN Reason: Anxiety Stop: 08/24/24 07:54 Lorazepam (Lorazepam 2 Mg/1 Ml Vial) 1 mg IV UD PRN; Protocol PRN Reason: EtOH Withdrawal AWSS Score 6,7 Stop: 08/24/24 23:19 Last Admin: 07/27/24 04:53 Dose: 1 mg Lorazepam (Lorazepam 2 Mg/1 Ml Vial) 2 mg IV UD PRN; Protocol PRN Reason: EtOH Withdrawal AWSS Score 8,9 Stop: 08/24/24 23:19 Last Admin: 07/26/24 09:39 Dose: 2 mg Lorazepam (Lorazepam 2 Mg/1 Ml Vial) 3 mg IV ONCE PRN; Protocol PRN Reason: EtOH Withdrawal AWSS Score 10+ Melatonin (Melatonin 3 Mg Tab) 3 mg PO HS PRN PRN Reason: Sleep Stop: 08/25/24 20:59 Last Admin: 07/30/24 02:03 Dose: 3 mg Metoprolol Tartrate (Metoprolol Tartrate 1 Mg/Ml Vial) 5 mg IV Q6 PRN PRN Reason: heart rate > 120 Stop: 08/25/24 17:59 Last Admin: 07/28/24 04:07 Dose: 5 mg Metoprolol Tartrate (Metoprolol Tartrate 50 Mg Tab) 50 mg PO BID [facility] Stop: 08/25/24 20:59 Last Admin: 07/29/24 20:32 Dose: 50 mg Miscellaneous (Carbohydrates For Hypoglycemia ) 15 - 30 gm PO UD PRN PRN Reason: Hypoglycemia Protocol Stop: 08/24/24 10:29 Miscellaneous (Remove Lidoderm Patch) 1 each N/A Q24H [facility] Stop: 08/25/24 08:59 Last Admin: 07/30/24 03:49 Dose: 1 each Miscellaneous (Remove Lidoderm Patch) 1 each N/A Q24H [facility] Stop: 08/25/24 08:59 Last Admin: 07/30/24 03:49 Dose: 1 each Multivitamins (Multivitamin Tab) 1 tab PO QAM [facility] Stop: 08/24/24 08:59 Last Admin: 07/29/24 08:39 Dose: 1 tab Pantoprazole Sodium (Pantoprazole 40 Mg Tab) 40 mg PO DAILY [facility] Stop: 08/25/24 08:59 Last Admin: 07/29/24 08:39 Dose: 40 mg Polyethylene Glycol (Polyethylene (Miralax) 17 Gm Pack) 17 gm PO DAILY [facility] Stop: 08/25/24 08:59 Last Admin: 07/29/24 08:44 Dose: 17 gm Thiamine HCl (Thiamine Hcl 100 Mg Tab) 100 mg PO QAM [facility] Stop: 08/25/24 08:59 Last Admin: 07/29/24 08:39 Dose: 100 mg
--- NOTE | 2024-07-30 20:48 | Magnetic Resonance Report ---
EXAM: MR knee LT wo con CLINICAL HISTORY: PT STATES LEFT KNEE PAIN. CHRONIC ISSUE. HAD XRAY. PER ORDER EVALUATE POSTERIOR SOFT TISSUE CALCIFICATION. HX OF LEFT LEG SURGERY. NO HX OF CANCER. BEST SCANS POSSIBLE. RAN PROPS. TECHNIQUE: MRI evaluation of the left knee in the coronal, sagittal and axial planes was performed in multiple pulsing sequences without contrast administration. Images were sent through PACs for diagnostic interpretation. COMPARISON: X ray 07/25/2024 FINDINGS: Suboptimal study due to patient motion. Bone and joints. Marked tri-compartmental osteoarthritic changes in the form of exuberant osteophytosis, Decreased joint space, articular cartilage lost. multiple intraarticular loose bodies. Mild joint effusion. Menisci: Meniscal loss with the destruction of expected architecture with extrusion of the remaining part likely macerated chronically degenerated. Ligaments: The anterior cruciate and posterior cruciate ligaments are not visualized likely torn Marked enthesopathy of quadriceps and patellar tendons The medial collateral ligament: Intact. shows mild high signal with periligaminatous edema (grade II sprain) The lateral collateral ligament: shows high signal at is its femoral attachment with poor definition of its fibers periligaminatous edema likely (grade III injury) Arcuate ligament: Intact with no abnormal signals. The fibular collateral ligament is Intact. Tendons: Marked enothesopathy of quadriceps and patellar tendons. Muscles: Normal surrounding musculature. No muscle atrophy or abnormal signal changes. Patella:. The medial and lateral retinacula are intact. Soft Tissues: periarticular soft tissue edema. Other: 35X24 mm Huitron's cyst with areas of signal void likely calcifications seen inside IMPRESSION: 1. 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 2. Marked tri-compartmental osteoarthritic changes. 3. Multiple intraarticular loose bodies and mild joint effusion. 4. Anterior cruciate and posterior cruciate ligaments are not visualized likely chronically torn. 5. Meniscal loss with the destruction of expected architecture with extrusion of the remaining part likely macerated chronically degenerated/torn. 6. Marked enothesopathy of quadriceps and patellar tendons. 7. MCL grade II sprain. 8. LCL (grade III injury). 9. Periarticular soft tissue edema. Electronically signed by Yusra Jose 07-30-2024 8:47 PM
[2024-07-31 07:24] LABS: Hematocrit (blood only) 31.8 % (42.0-52.0); Hemoglobin 10.6 g/dl (14.0-18.0); Mean Corpuscular Hemoglobin 31.3 pg (25.0-34.0); Mean Corpuscular Hgb Conc 33.3 g/dL (32.0-36.0); Mean Corpuscular Volume 93.8 fL (80.0-100.0); Mean Platelet Volume 11.5 fL (9.4-12.4); Platelet Count 185 K/uL (130-400); RDW Coefficient of Variation 13.3 % (11.5-14.5); RDW Standard Deviation 45.7 fL (36.4-46.3); Red Blood Count 3.39 M/uL (4.70-6.10); White Blood Count 5.03 K/ul (4.8-10.8)
[2024-07-31 07:41] LABS: BUN Creatinine Ratio 29.9 (10-20); Calcium 8.2 mg/dl (8.6-10.3); Creatinine Clr Calc Pharmacy 69.5 ml/min; Magnesium 2.1 mg/dl (1.7-2.4); Phosphorus 2.6 mg/dl (2.5-4.9); Potassium 4.3 mmol/L (3.5-5.1)
--- NOTE | 2024-07-31 19:14 | Hospitalist Progress Note ---
Date of Service July 31, 2024 Assessment & Plan (1) Hypotension: Plan: Recurrent Falls This is the patient's fifth fall within a year Patient reports presyncope prior to falling Denies palpitations, shortness of breath Admitted with hypotension and hypoglycemia Question of whether patient is taking his medications appropriately As per friend, patient short-term memory has been progressively declining Patient advised to have medication brought in by friends for verification, patient agreed - discussed w/ RN - medications were reviewed and confirmed by pharmacist and RN Recurrent falls likely multifactorial: Rule out orthostatic hypotension - Monitor orthostatic vitals Rule out arrhythmia - No arrhythmias per panel monitor so far will need outpatient cardiac monitoring - Echocardiogram showing EF of 55 to 60%, mild mitral regurgitation, mild tricuspid regurgitation Possible bilateral knee pain from arthritis and chronic neuropathy also contributing - Right Knee: Moderate tricompartment primary osteoarthritis. No acute fracture. Left Knee: Moderate to severe tricompartment primary osteoarthritis. No acute abnormality noted. - Orthopedics consulted - L knee MRI obtained IMPRESSION: 1. 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 2. Marked tri-compartmental osteoarthritic changes. 3. Multiple intraarticular loose bodies and mild joint effusion. 4. Anterior cruciate and posterior cruciate ligaments are not visualized likely chronically torn. 5. Meniscal loss with the destruction of expected architecture with extrusion of the remaining part likely macerated chronically degenerated/torn. 6. Marked enothesopathy of quadriceps and patellar tendons. 7. MCL grade II sprain. 8. LCL (grade III injury). 9. Periarticular soft tissue edema. - vitamin B12, Folate levels wnl Excessive Tramadol intake? - Patient's daughter reports patient could be taking higher doses of tramadol Initial imaging studies without fractures + some lower back pain Lumbar spine CT - FINDINGS: Vertebrae: Chronic lytic spondylolisthesis at L5-S1. Remote fracture deformity of the L3 vertebral body. Diffuse osteopenia throughout the visualized bones. No acute fracture. Mild bilateral sacroiliac joint arthropathy. Discs/spinal canal/neural foramina: No acute findings. Severe bilateral L5-S1 neural foraminal stenosis. No spinal canal stenosis. Soft tissues: Unremarkable. IMPRESSION: No evidence of acute lumbar spine pathology. Will need PT and OT evaluation Will likely need acute rehab Fever with tachycardia, Confusion Possible alcohol withdrawal Left lower lobe pneumonia versus Malignancy Positive for alcohol level on admission Patient denies drinking alcohol In the evening of hospital day #2,patient presents with confusion, tremors, t achycardia Consistent with possible alcohol withdrawal Started Librium protocol along with alcohol drawl protocol, as needed Ativan Monitor closely 07/27 Blood pressure on the higher side, No recurrence of hypotension Currently showing signs and symptoms of possible alcohol withdrawal Continue Librium protocol and alcohol to protocol Having intermittent episodes of fever BioFire negative Chest x-ray showing possible left lower lobe pneumonia Repeat blood cultures - negat. for 48 hrs Urinalysis unremarkable Cefepime IV started 07/28 Alcohol withdrawal: Gabapentin, Librium, oxycodone discontinued overnight as patient was unresponsive Fever, tachycardia, confusion resolving Resume patient's usual gabapentin 900 mg twice daily DC Librium protocol, no narcotics for this patient 07/29 Pt currently without any signs of withdrawal, afebrile 07/30 cultx negative - stop IV abx - switch to Po to finish abx course Pneumonia Respiratory status stable CT chest: No bryan consolidation is seen. Groundglass nodule in the left lower lobe may represent low-grade adenocarcinoma versus infectious/inflammatory process. Nasal MRSA negative, DC vancomycin Continue cefepime urine Legionella - negative Chronic A-fib on Eliquis, in RVR Alcohol withdrawal , Pneumonia likely contributing Continue usual atenolol, diltiazem Already on Eliquis Monitor Traumatic neck pain, patient without radiculopathy symptoms -- Cervical MRI not revealing any fractures Hyperlipidemia, on statin Rx DM2 insulin requiring -- patient hypoglycemic at the ER, unknown baseline control -- A1c 7.0 billet recorder consulted Hypothyroidism, euthyroid based on TSH GERD on PPI chronic anemia, hemoglobin close to baseline Possible alcohol abuse, patient denies recent EtOH intake but with detectable blood alcohol level, abdominal imaging shows chronic liver disease past tobacco abuse DVT prophylaxis. Eliquis Full code Disposition Lives alone at home Friends live nearby PT and OT evaluation Question patient's safety to live alone, May need to transition to acute rehab versus custodial facility Admission and Anticipated Discharge Date Admission Date: July 25, 2024 Subjective Pt seen in follow up afebrile laying in bed in NAD, resting reportedly did not get much sleep overnight Per RN, worked with PT earlier - walked in hallway, ate breakfast ok hx of chronic knee pain - pt seen by ortho while inpt - MRI knee cultx negat. - stop IV abx -> switch to PO to finish course Review of Systems Review of Systems: All systems reviewed & are unremarkable except as noted in Subjective Physical Exam Physical Exam: General- oriented x 3, not in distress, speaks in sentences with no effort or accessory muscle use Eyes- anicteric Neck- no JVD Lungs- clear breath sounds bilaterally, no rales/wheezes Heart- normal rate, regular rhythm; no murmurs Abdomen- normal bowel sounds, nondistended, soft, nontender Extremities- no pretibial edema, no calf tenderness Neuro- alert, oriented x 3; no gross focal neurologic deficits Skin- warm & dry Results & Data Results & Data Vital Signs (Past 12 Hours) Vital Signs Temp Pulse Resp BP Pulse Ox Pulse Ox O2 Del Method 07/31/24 15:11 36.6 C 75 20 125/70 97 Room Air 07/31/24 11:25 37.0 C 93 H 18 133/64 100 Room Air 07/31/24 10:00 95 07/31/24 07:36 37.0 C 90 17 125/74 98 Room Air O2 Del Method 07/31/24 15:11 07/31/24 11:25 07/31/24 10:00 Room Air 07/31/24 07:36 Laboratory Results 07/31/24 07/31/24 07/31/24 Range/Units 16:23 11:22 07:37 WBC (4.8-10.8) K/ul RBC (4.70-6.10) M/uL Hgb (14.0-18.0) g/dl Hct (42.0-52.0) % MCV (80.0-100.0) fL MCH (25.0-34.0) pg MCHC (32.0-36.0) g/dL RDW Std Deviation (36.4-46.3) fL RDW Coeff of Asiya (11.5-14.5) % Plt Count (130-400) K/uL MPV (9.4-12.4) fL Sodium (136-145) mmol/L Potassium (3.5-5.1) mmol/L Chloride (98-107) mmol/L Carbon Dioxide (21-32) mmol/L Anion Gap (3-11) BUN (6-23) mg/dl Creatinine (0.6-1.4) mg/dl Est Cr Clr Drug Dosing ml/min eGFR BUN/Creatinine Ratio (10-20) Glucose (70-99(Fasting)) mg/dl POC Glucose 191 H 189 H 145 H (70-99) mg/dl Calcium (8.6-10.3) mg/dl Phosphorus (2.5-4.9) mg/dl Magnesium (1.7-2.4) mg/dl Urine Legionella Ag 07/31/24 07/30/24 07/28/24 Range/Units 06:11 20:34 18:05 WBC 5.03 (4.8-10.8) K/ul RBC 3.39 L (4.70-6.10) M/uL Hgb 10.6 L (14.0-18.0) g/dl Hct 31.8 L (42.0-52.0) % MCV 93.8 (80.0-100.0) fL MCH 31.3 (25.0-34.0) pg MCHC 33.3 (32.0-36.0) g/dL RDW Std Deviation 45.7 (36.4-46.3) fL RDW Coeff of Asiya 13.3 (11.5-14.5) % Plt Count 185 (130-400) K/uL MPV 11.5 (9.4-12.4) fL Sodium 141 (136-145) mmol/L Potassium 4.3 (3.5-5.1) mmol/L Chloride 108 H (98-107) mmol/L Carbon Dioxide 28 (21-32) mmol/L Anion Gap 5 (3-11) BUN 29 H (6-23) mg/dl Creatinine 0.97 (0.6-1.4) mg/dl Est Cr Clr Drug Dosing 69.5 ml/min eGFR 80.40 BUN/Creatinine Ratio 29.9 H (10-20) Glucose 148 H (70-99(Fasting)) mg/dl POC Glucose 265 H (70-99) mg/dl Calcium 8.2 L (8.6-10.3) mg/dl Phosphorus 2.6 (2.5-4.9) mg/dl Magnesium 2.1 (1.7-2.4) mg/dl Urine Legionella Ag SEE NOTE Medications Administered Current Inpatient Medications Acetaminophen (Acetaminophen 500 Mg Tab) 500 mg PO Q6H PRN PRN Reason: fever/pain Stop: 08/24/24 07:54 Last Admin: 07/31/24 04:18 Dose: 500 mg Allopurinol (Allopurinol 100 Mg Tab) 100 mg PO DAILY [facility] Stop: 08/25/24 08:59 Last Admin: 07/31/24 08:48 Dose: 100 mg Amoxicillin/Clavulanate Potassium (Amoxicillin/Clavulanate 875 Mg Tab) 1 tab PO BIDM [facility]; Protocol Stop: 08/06/24 07:59 Apixaban (Apixaban 5 Mg Tablet) 5 mg PO BID [facility] Stop: 08/25/24 09:59 Last Admin: 07/27/24 20:26 Dose: Not Given Atorvastatin Calcium (Atorvastatin 40 Mg Tab) 40 mg PO HS [facility] Stop: 08/25/24 20:59 Last Admin: 07/30/24 21:00 Dose: 40 mg Chlordiazepoxide HCl (Chlordiazepoxide Hcl 25 Mg Cap) 25 mg PO Q8H [facility] Last Admin: 07/27/24 20:26 Dose: Not Given Dextrose (Dextrose 50% 50 Ml Syringe) 25 - 50 ml IV UD PRN; Protocol PRN Reason: Hypoglycemia Protocol Stop: 08/24/24 10:29 Diclofenac Sodium (Diclofenac Sod 1% Gel 100 Gm Tube) 2 gm EXT Q6H PRN; Protocol PRN Reason: joint pain Stop: 08/24/24 22:49 Last Admin: 07/31/24 08:47 Dose: 2 gm Diltiazem HCl (Diltiazem Hcl 120 Mg Capcr) 120 mg PO DAILY [facility] Stop: 08/25/24 08:59 Last Admin: 07/31/24 08:48 Dose: 120 mg Ferrous Sulfate (Ferrous Sulfate 325 Mg Tab) 325 mg PO Q2D [facility] Stop: 08/25/24 08:59 Last Admin: 07/30/24 08:27 Dose: 325 mg Folic Acid (Folic Acid 1 Mg Tab) 1 mg PO QAM [facility] Stop: 08/24/24 08:59 Last Admin: 07/31/24 08:48 Dose: 1 mg Gabapentin (Gabapentin 300 Mg Cap) 900 mg PO BID [facility] Stop: 08/24/24 22:59 Last Admin: 07/31/24 08:48 Dose: 900 mg Glucagon (Glucagon For Inj 1 Mg Vial) 1 mg SQ UD PRN; Protocol PRN Reason: Hypoglycemia Protocol Stop: 08/24/24 10:29 Glucosamine Sulfate (Glucosamine Sulfate 500 Mg Cap) 1,000 mg PO DAILY [facility] Stop: 08/25/24 08:59 Last Admin: 07/31/24 08:49 Dose: 1,000 mg Glucose (Glucose 40% Gel 15 Gm Tube) 15 - 30 gm PO UD PRN; Protocol PRN Reason: Hypoglycemia Protocol Stop: 08/24/24 10:29 Glucose (Glucose 10 Tab/Tube) 4 - 8 tab PO UD PRN; Protocol PRN Reason: Hypoglycemia Protocol Stop: 08/24/24 10:29 Guaifenesin (Guaifenesin 600 Mg Tabcr) 600 mg PO Q12 [facility] Stop: 08/28/24 20:59 Last Admin: 07/31/24 08:48 Dose: 600 mg Promethazine HCl (Phenergan) 6.25 mg in 50.25 mls @ 201 mls/hr IV Q6H PRN PRN Reason: Nausea And Vomiting Stop: 08/24/24 07:54 Insulin Aspart (Insulin Aspart Per Unit Charge) 0 units SC ACHS [facility] Stop: 08/24/24 11:29 Last Admin: 07/31/24 17:59 Dose: 5 units Insulin Glargine (Lantus Per Unit Charge) 5 units SQ DAILY [facility] Stop: 08/26/24 08:59 Last Admin: 07/31/24 08:46 Dose: 5 units Ketorolac Tromethamine (Ketorolac Tromethamine 15 Mg/Ml Vial) 15 mg IV Q6H PRN PRN Reason: moderate to severe pain Stop: 08/01/24 13:58 Last Admin: 07/31/24 11:53 Dose: 15 mg Levothyroxine Sodium (Levothyroxine Sodium 137 Mcg Tablet) 137 mcg PO [id number] [facility] Stop: 08/26/24 06:29 Last Admin: 07/31/24 05:39 Dose: 137 mcg Lidocaine (Lidocaine 5% 1 Patch) 1 patch TD HS [facility] Stop: 08/24/24 20:59 Last Admin: 07/30/24 21:02 Dose: 1 patch Lidocaine (Lidocaine 5% 1 Patch) 1 patch TD HS [facility] Stop: 08/24/24 20:59 Last Admin: 07/30/24 21:03 Dose: 1 patch Lorazepam (Lorazepam 0.5 Mg Tab) 0.5 mg PO TID PRN PRN Reason: Anxiety Stop: 08/24/24 07:54 Lorazepam (Lorazepam 2 Mg/1 Ml Vial) 1 mg IV UD PRN; Protocol PRN Reason: EtOH Withdrawal AWSS Score 6,7 Stop: 08/24/24 23:19 Last Admin: 07/27/24 04:53 Dose: 1 mg Lorazepam (Lorazepam 2 Mg/1 Ml Vial) 2 mg IV UD PRN; Protocol PRN Reason: EtOH Withdrawal AWSS Score 8,9 Stop: 08/24/24 23:19 Last Admin: 07/26/24 09:39 Dose: 2 mg Lorazepam (Lorazepam 2 Mg/1 Ml Vial) 3 mg IV ONCE PRN; Protocol PRN Reason: EtOH Withdrawal AWSS Score 10+ Melatonin (Melatonin 3 Mg Tab) 3 mg PO HS PRN PRN Reason: Sleep Stop: 08/25/24 20:59 Last Admin: 07/31/24 02:56 Dose: 3 mg Metoprolol Tartrate (Metoprolol Tartrate 1 Mg/Ml Vial) 5 mg IV Q6 PRN PRN Reason: heart rate > 120 Stop: 08/25/24 17:59 Last Admin: 07/28/24 04:07 Dose: 5 mg Metoprolol Tartrate (Metoprolol Tartrate 50 Mg Tab) 50 mg PO BID [facility] Stop: 08/25/24 20:59 Last Admin: 07/31/24 08:48 Dose: 50 mg Miscellaneous (Carbohydrates For Hypoglycemia ) 15 - 30 gm PO UD PRN PRN Reason: Hypoglycemia Protocol Stop: 08/24/24 10:29 Miscellaneous (Remove Lidoderm Patch) 1 each N/A Q24H [facility] Stop: 08/25/24 08:59 Last Admin: 07/31/24 08:49 Dose: 1 each Miscellaneous (Remove Lidoderm Patch) 1 each N/A Q24H [facility] Stop: 08/25/24 08:59 Last Admin: 07/31/24 08:51 Dose: 1 each Multivitamins (Multivitamin Tab) 1 tab PO QAM [facility] Stop: 08/24/24 08:59 Last Admin: 07/31/24 08:48 Dose: 1 tab Pantoprazole Sodium (Pantoprazole 40 Mg Tab) 40 mg PO DAILY [facility] Stop: 08/25/24 08:59 Last Admin: 07/31/24 08:48 Dose: 40 mg Polyethylene Glycol (Polyethylene (Miralax) 17 Gm Pack) 17 gm PO DAILY [facility] Stop: 08/25/24 08:59 Last Admin: 07/31/24 08:49 Dose: Not Given Thiamine HCl (Thiamine Hcl 100 Mg Tab) 100 mg PO QAM [facility] Stop: 08/25/24 08:59 Last Admin: 07/31/24 08:49 Dose: 100 mg
[2024-08-01 06:24] LABS: Hematocrit (blood only) 32.7 % (42.0-52.0); Mean Corpuscular Hemoglobin 31.5 pg (25.0-34.0); Mean Corpuscular Hgb Conc 33.6 g/dL (32.0-36.0); Mean Corpuscular Volume 93.7 fL (80.0-100.0); Platelet Count 206 K/uL (130-400); RDW Coefficient of Variation 13.4 % (11.5-14.5); RDW Standard Deviation 45.8 fL (36.4-46.3); Red Blood Count 3.49 M/uL (4.70-6.10); White Blood Count 5.59 K/ul (4.8-10.8)
[2024-08-01 06:43] LABS: Calcium 8.4 mg/dl (8.6-10.3); Creatinine Clr Calc Pharmacy 73.1 ml/min; Magnesium 2.1 mg/dl (1.7-2.4); Phosphorus 2.6 mg/dl (2.5-4.9); Potassium 4.6 mmol/L (3.5-5.1)
[2024-08-01] MEDS: AMOXICILLIN/CLAVULANATE 875 MG TAB PO SCH (08:01)
--- NOTE | 2024-08-01 14:42 | Hospitalist Progress Note ---
Date of Service August 01, 2024 Assessment & Plan (1) Hypotension: Plan: Recurrent Falls This is the patient's fifth fall within a year Patient reports presyncope prior to falling Denies palpitations, shortness of breath Admitted with hypotension and hypoglycemia Question of whether patient is taking his medications appropriately As per friend, patient short-term memory has been progressively declining Patient advised to have medication brought in by friends for verification, patient agreed - discussed w/ RN - medications were reviewed and confirmed by pharmacist and RN 08/01 - Pt is awake alert and oriented - Tells me that he was started on ozempic in addition to his insulin and metformin. Then his ozempic dose was increased. Pt feels that this likely led to his hypoglycemic episode. Recurrent falls likely multifactorial: Rule out orthostatic hypotension - Monitor orthostatic vitals Rule out arrhythmia - No arrhythmias per executive communications manager so far will need outpatient cardiac monitoring - Echocardiogram showing EF of 55 to 60%, mild mitral regurgitation, mild tricuspid regurgitation Possible bilateral knee pain from arthritis and chronic neuropathy also contributing - Right Knee: Moderate tricompartment primary osteoarthritis. No acute fracture. Left Knee: Moderate to severe tricompartment primary osteoarthritis. No acute abnormality noted. - Orthopedics consulted - L knee MRI obtained IMPRESSION: 1. 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 2. Marked tri-compartmental osteoarthritic changes. 3. Multiple intraarticular loose bodies and mild joint effusion. 4. Anterior cruciate and posterior cruciate ligaments are not visualized likely chronically torn. 5. Meniscal loss with the destruction of expected architecture with extrusion of the remaining part likely macerated chronically degenerated/torn. 6. Marked enothesopathy of quadriceps and patellar tendons. 7. MCL grade II sprain. 8. LCL (grade III injury). 9. Periarticular soft tissue edema. - vitamin B12, Folate levels wnl Excessive Tramadol intake? - Patient's daughter reports patient could be taking higher doses of tramadol - as above, hypoglycemic episode possible secondary to increased ozempic dose, in addition to pt's insulin and metformin Initial imaging studies without fractures + some lower back pain Lumbar spine CT - FINDINGS: Vertebrae: Chronic lytic spondylolisthesis at L5-S1. Remote fracture deformity of the L3 vertebral body. Diffuse osteopenia throughout the visualized bones. No acute fracture. Mild bilateral sacroiliac joint arthropathy. Discs/spinal canal/neural foramina: No acute findings. Severe bilateral L5-S1 neural foraminal stenosis. No spinal canal stenosis. Soft tissues: Unremarkable. IMPRESSION: No evidence of acute lumbar spine pathology. Will need PT and OT evaluation Will likely need acute rehab - [facility] Fever with tachycardia, Confusion Possible alcohol withdrawal Left lower lobe pneumonia versus Malignancy Positive for alcohol level on admission Patient denies drinking alcohol In the evening of hospital day #2,patient presents with confusion, tremors, tachycardia Consistent with possible alcohol withdrawal Started Librium protocol by previous provider along with alcohol withdrawal protocol, as needed Ativan Monitor closely 07/27 Blood pressure on the higher side, No recurrence of hypotension Currently showing signs and symptoms of possible alcohol withdrawal Continue Librium protocol and alcohol to protocol Having intermittent episodes of fever BioFire negative Chest x-ray showing possible left lower lobe pneumonia Repeat blood cultures - negat. for 48 hrs Urinalysis unremarkable Cefepime IV started 07/28 Alcohol withdrawal: Gabapentin, Librium, oxycodone discontinued overnight as patient was unresponsive Fever, tachycardia, confusion resolving Resume patient's usual gabapentin 900 mg twice daily DC Librium protocol, no narcotics for this patient 07/29 Pt currently without any signs of withdrawal, afebrile 07/30 cultx negative - stopped IV abx - switched to Po to finish abx course Pneumonia Respiratory status stable CT chest: No bryan consolidation is seen. Groundglass nodule in the left lower lobe may represent low-grade adenocarcinoma versus infectious/inflammatory process. Nasal MRSA negative, DC vancomycin Continue cefepime urine Legionella - negative Chronic A-fib on Eliquis, in RVR Alcohol withdrawal , Pneumonia likely contributing Continue usual atenolol, diltiazem Already on Eliquis Monitor Traumatic neck pain, patient without radiculopathy symptoms -- Cervical MRI not revealing any fractures Hyperlipidemia, on statin Rx DM2 insulin requiring -- patient hypoglycemic at the ER, unknown baseline control -- A1c 7.0 coding educator consulted - as above, pt on ozempic, insulin, metformin at home - ozempic dose was increased prior to his hypoglycemic episode - likely contributing Hypothyroidism, euthyroid based on TSH GERD on PPI chronic anemia, hemoglobin close to baseline Possible alcohol abuse, patient denies recent EtOH intake but with detectable blood alcohol level, abdominal imaging shows chronic liver disease past tobacco abuse DVT prophylaxis. Eliquis Full code Disposition Lives alone at home Friends live nearby PT and OT evaluation Question patient's safety to live alone, May need to transition to acute rehab versus senior care facility. [facility] Admission and Anticipated Discharge Date Admission Date: July 25, 2024 Subjective Pt seen in follow up afebrile Sitting up in chair, in NAD, working on his computer Awake, alert oriented Tells me that he was started on ozempic in addition to his insulin and metformin. Then his ozempic dose was increased. Pt feels that this likely led to his hypoglycemic episode. Currently pt feels well. Denies any fever, chills, chest pain, shortness of breath, cough, abd. pain, n/v hx of chronic knee pain - pt seen by ortho while inpt - MRI knee obtained cultx negat. - stopped IV abx yesterday -> switch to PO to finish course Review of Systems Review of Systems: All systems reviewed & are unremarkable except as noted in Subjective Physical Exam Physical Exam: General- oriented x 3, not in distress, speaks in sentences with no effort or accessory muscle use Eyes- anicteric Neck- no JVD Lungs- clear breath sounds bilaterally, no rales/wheezes Heart- normal rate, regular rhythm; no murmurs Abdomen- normal bowel sounds, nondistended, soft, nontender Extremities- no pretibial edema, no calf tenderness Neuro- alert, oriented x 3; no gross focal neurologic deficits Skin- warm & dry Results & Data Results & Data Vital Signs (Past 12 Hours) Vital Signs Temp Pulse Pulse Resp BP Pulse Ox Pulse Ox 08/01/24 13:06 08/01/24 13:06 86 08/01/24 11:22 36.8 C 88 18 122/70 98 08/01/24 10:00 98 08/01/24 07:34 90 18 113/88 99 08/01/24 02:55 36.5 C 87 20 138/79 99 O2 Del Method O2 Del Method 08/01/24 13:06 Room Air 08/01/24 13:06 08/01/24 11:22 Room Air 08/01/24 10:00 Room Air 08/01/24 07:34 Room Air 08/01/24 02:55 Room Air Laboratory Results 08/01/24 08/01/24 08/01/24 Range/Units 11:20 07:26 06:11 WBC 5.59 (4.8-10.8) K/ul RBC 3.49 L (4.70-6.10) M/uL Hgb 11.0 L (14.0-18.0) g/dl Hct 32.7 L (42.0-52.0) % MCV 93.7 (80.0-100.0) fL MCH 31.5 (25.0-34.0) pg MCHC 33.6 (32.0-36.0) g/dL RDW Std Deviation 45.8 (36.4-46.3) fL RDW Coeff of Asiya 13.4 (11.5-14.5) % Plt Count 206 (130-400) K/uL MPV 11.0 (9.4-12.4) fL Sodium 141 (136-145) mmol/L Potassium 4.6 (3.5-5.1) mmol/L Chloride 108 H (98-107) mmol/L Carbon Dioxide 26 (21-32) mmol/L Anion Gap 7 (3-11) BUN 26 H (6-23) mg/dl Creatinine 0.93 (0.6-1.4) mg/dl Est Cr Clr Drug Dosing 73.1 ml/min eGFR 84.57 BUN/Creatinine Ratio 28.0 H (10-20) Glucose 150 H (70-99(Fasting)) mg/dl POC Glucose 192 H 132 H (70-99) mg/dl Calcium 8.4 L (8.6-10.3) mg/dl Phosphorus 2.6 (2.5-4.9) mg/dl Magnesium 2.1 (1.7-2.4) mg/dl 07/31/24 07/31/24 Range/Units 20:09 16:23 WBC (4.8-10.8) K/ul RBC (4.70-6.10) M/uL Hgb (14.0-18.0) g/dl Hct (42.0-52.0) % MCV (80.0-100.0) fL MCH (25.0-34.0) pg MCHC (32.0-36.0) g/dL RDW Std Deviation (36.4-46.3) fL RDW Coeff of Asiya (11.5-14.5) % Plt Count (130-400) K/uL MPV (9.4-12.4) fL Sodium (136-145) mmol/L Potassium (3.5-5.1) mmol/L Chloride (98-107) mmol/L Carbon Dioxide (21-32) mmol/L Anion Gap (3-11) BUN (6-23) mg/dl Creatinine (0.6-1.4) mg/dl Est Cr Clr Drug Dosing ml/min eGFR BUN/Creatinine Ratio (10-20) Glucose (70-99(Fasting)) mg/dl POC Glucose 197 H 191 H (70-99) mg/dl Calcium (8.6-10.3) mg/dl Phosphorus (2.5-4.9) mg/dl Magnesium (1.7-2.4) mg/dl
--- NOTE | 2024-08-02 10:01 | Hospitalist Progress Note ---
Date of Service August 02, 2024 Assessment & Plan (1) Hypotension: Plan: Recurrent Falls This is the patient's fifth fall within a year Patient reports presyncope prior to falling Denies palpitations, shortness of breath Admitted with hypotension and hypoglycemia Question of whether patient is taking his medications appropriately As per friend, patient short-term memory has been progressively declining Patient advised to have medication brought in by friends for verification, patient agreed - discussed w/ RN - medications were reviewed and confirmed by pharmacist and RN 08/01 - Pt is awake alert and oriented - Tells me that he was started on ozempic in addition to his insulin and metformin. Then his ozempic dose was increased. Pt feels that this likely led to his hypoglycemic episode. Recurrent falls likely multifactorial: Rule out orthostatic hypotension - Monitor orthostatic vitals Rule out arrhythmia - No arrhythmias per monitor technician so far will need outpatient cardiac monitoring - Echocardiogram showing EF of 55 to 60%, mild mitral regurgitation, mild tricuspid regurgitation Possible bilateral knee pain from arthritis and chronic neuropathy also contributing - Right Knee: Moderate tricompartment primary osteoarthritis. No acute fracture. Left Knee: Moderate to severe tricompartment primary osteoarthritis. No acute abnormality noted. - Orthopedics consulted - L knee MRI obtained IMPRESSION: 1. 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 2. Marked tri-compartmental osteoarthritic changes. 3. Multiple intraarticular loose bodies and mild joint effusion. 4. Anterior cruciate and posterior cruciate ligaments are not visualized likely chronically torn. 5. Meniscal loss with the destruction of expected architecture with extrusion of the remaining part likely macerated chronically degenerated/torn. 6. Marked enothesopathy of quadriceps and patellar tendons. 7. MCL grade II sprain. 8. LCL (grade III injury). 9. Periarticular soft tissue edema. - vitamin B12, Folate levels wnl Excessive Tramadol intake? - Patient's daughter reports patient could be taking higher doses of tramadol - as above, hypoglycemic episode possible secondary to increased ozempic dose, in addition to pt's insulin and metformin Initial imaging studies without fractures + some lower back pain Lumbar spine CT - FINDINGS: Vertebrae: Chronic lytic spondylolisthesis at L5-S1. Remote fracture deformity of the L3 vertebral body. Diffuse osteopenia throughout the visualized bones. No acute fracture. Mild bilateral sacroiliac joint arthropathy. Discs/spinal canal/neural foramina: No acute findings. Severe bilateral L5-S1 neural foraminal stenosis. No spinal canal stenosis. Soft tissues: Unremarkable. IMPRESSION: No evidence of acute lumbar spine pathology. Will need PT and OT evaluation Will likely need acute rehab - plan for [facility] Fever with tachycardia, Confusion Possible alcohol withdrawal Left lower lobe pneumonia versus Malignancy Positive for alcohol level on admission Patient denies drinking alcohol In the evening of hospital day #2,patient presents with confusion, tremors, tachycardia Consistent with possible alcohol withdrawal Started Librium protocol by previous provider along with alcohol withdrawal protocol, as needed Ativan Monitor closely 07/27 Blood pressure on the higher side, No recurrence of hypotension Currently showing signs and symptoms of possible alcohol withdrawal Continue Librium protocol and alcohol to protocol Having intermittent episodes of fever BioFire negative Chest x-ray showing possible left lower lobe pneumonia Repeat blood cultures - negat. for 48 hrs Urinalysis unremarkable Cefepime IV started 07/28 Alcohol withdrawal: Gabapentin, Librium, oxycodone discontinued overnight as patient was unresponsive Fever, tachycardia, confusion resolving Resume patient's usual gabapentin 900 mg twice daily DC Librium protocol, no narcotics for this patient 07/29 Pt currently without any signs of withdrawal, afebrile 07/30 cultx negative - stopped IV abx - switched to Po to finish abx course Pneumonia Respiratory status stable CT chest: No bryan consolidation is seen. Groundglass nodule in the left lower lobe may represent low-grade adenocarcinoma versus infectious/inflammatory process. 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 Eliquis Full code Disposition Lives alone at home Friends live nearby PT and OT evaluation Plan to [facility] Admission and Anticipated Discharge Date Admission Date: July 25, 2024 Subjective Pt seen in follow up afebrile Sitting up in chair, in NAD, working on his computer Awake, alert oriented Tells me that he was started on ozempic in addition to his insulin and metformin. Then his ozempic dose was increased. Pt feels that this likely led to his hypoglycemic episode. Currently pt feels well. Denies any fever, chills, chest pain, shortness of breath, cough, abd. pain, n/v hx of chronic knee pain - pt seen by ortho while inpt - MRI knee obtained cultx negat. - stopped IV abx -> switched to PO to finish course Pt continues to feel well, plans to [facility] Review of Systems Review of Systems: All systems reviewed & are unremarkable except as noted in Subjective Physical Exam Physical Exam: General- oriented x 3, not in distress, speaks in sentences with no effort or accessory muscle use Eyes- anicteric Neck- no JVD Lungs- clear breath sounds bilaterally, no rales/wheezes Heart- normal rate, regular rhythm; no murmurs Abdomen- normal bowel sounds, nondistended, soft, nontender Extremities- no pretibial edema, no calf tenderness Neuro- alert, oriented x 3; no gross focal neurologic deficits Skin- warm & dry Results & Data Results & Data Vital Signs (Past 12 Hours) Vital Signs Temp Pulse Pulse Resp BP Pulse Ox O2 Del Method 08/02/24 08:43 36.7 C 107 H 18 149/81 H 94 Room Air 08/02/24 03:24 36.4 C L 77 18 130/89 97 Room Air 08/02/24 03:00 70 25 H 99 08/02/24 00:00 89 08/01/24 23:22 71 16 99 08/01/24 22:59 36.4 C L 76 18 130/74 100 Room Air FiO2 08/02/24 08:43 08/02/24 03:24 08/02/24 03:00 21 08/02/24 00:00 08/01/24 23:22 21 08/01/24 22:59 Laboratory Results 08/02/24 08/01/24 08/01/24 Range/Units 07:32 20:15 16:33 POC Glucose 123 H 165 H 113 H (70-99) mg/dl 08/01/24 Range/Units 11:20 POC Glucose 192 H (70-99) mg/dl Medications Administered Current Inpatient Medications Acetaminophen (Acetaminophen 500 Mg Tab) 500 mg PO Q6H PRN PRN Reason: fever/pain Stop: 08/24/24 07:54 Last Admin: 08/02/24 04:09 Dose: 500 mg Allopurinol (Allopurinol 100 Mg Tab) 100 mg PO DAILY [facility] Stop: 08/25/24 08:59 Last Admin: 08/02/24 08:14 Dose: 100 mg Amoxicillin/Clavulanate Potassium (Amoxicillin/Clavulanate 875 Mg Tab) 1 tab PO BIDM [facility]; Protocol Stop: 08/06/24 07:59 Last Admin: 08/02/24 08:13 Dose: 1 tab Apixaban (Apixaban 5 Mg Tablet) 5 mg PO BID [facility] Stop: 08/25/24 09:59 Last Admin: 07/27/24 20:26 Dose: Not Given Atorvastatin Calcium (Atorvastatin 40 Mg Tab) 40 mg PO HS [facility] Stop: 08/25/24 20:59 Last Admin: 08/01/24 20:51 Dose: 40 mg Chlordiazepoxide HCl (Chlordiazepoxide Hcl 25 Mg Cap) 25 mg PO Q8H [facility] Last Admin: 07/27/24 20:26 Dose: Not Given Dextrose (Dextrose 50% 50 Ml Syringe) 25 - 50 ml IV UD PRN; Protocol PRN Reason: Hypoglycemia Protocol Stop: 08/24/24 10:29 Diclofenac Sodium (Diclofenac Sod 1% Gel 100 Gm Tube) 2 gm EXT Q6H PRN; Protocol PRN Reason: joint pain Stop: 08/24/24 22:49 Last Admin: 08/01/24 10:00 Dose: 2 gm Diltiazem HCl (Diltiazem Hcl 120 Mg Capcr) 120 mg PO DAILY [facility] Stop: 08/25/24 08:59 Last Admin: 08/02/24 08:13 Dose: 120 mg Ferrous Sulfate (Ferrous Sulfate 325 Mg Tab) 325 mg PO Q2D [facility] Stop: 08/25/24 08:59 Last Admin: 08/01/24 08:02 Dose: 325 mg Folic Acid (Folic Acid 1 Mg Tab) 1 mg PO QAM [facility] Stop: 08/24/24 08:59 Last Admin: 08/02/24 08:13 Dose: 1 mg Gabapentin (Gabapentin 300 Mg Cap) 900 mg PO BID [facility] Stop: 08/24/24 22:59 Last Admin: 08/02/24 08:13 Dose: 900 mg Glucagon (Glucagon For Inj 1 Mg Vial) 1 mg SQ UD PRN; Protocol PRN Reason: Hypoglycemia Protocol Stop: 08/24/24 10:29 Glucosamine Sulfate (Glucosamine Sulfate 500 Mg Cap) 1,000 mg PO DAILY [facility] Stop: 08/25/24 08:59 Last Admin: 08/02/24 08:13 Dose: 1,000 mg Glucose (Glucose 40% Gel 15 Gm Tube) 15 - 30 gm PO UD PRN; Protocol PRN Reason: Hypoglycemia Protocol Stop: 08/24/24 10:29 Glucose (Glucose 10 Tab/Tube) 4 - 8 tab PO UD PRN; Protocol PRN Reason: Hypoglycemia Protocol Stop: 08/24/24 10:29 Guaifenesin (Guaifenesin 600 Mg Tabcr) 600 mg PO Q12 [facility] Stop: 08/28/24 20:59 Last Admin: 08/02/24 08:14 Dose: 600 mg Promethazine HCl (Phenergan) 6.25 mg in 50.25 mls @ 201 mls/hr IV Q6H PRN PRN Reason: Nausea And Vomiting Stop: 08/24/24 07:54 Insulin Aspart (Insulin Aspart Per Unit Charge) 0 units SC ACHS [facility] Stop: 08/24/24 11:29 Last Admin: 08/02/24 08:17 Dose: 4 units Insulin Glargine (Lantus Per Unit Charge) 5 units SQ DAILY [facility] Stop: 08/26/24 08:59 Last Admin: 08/02/24 08:16 Dose: 5 units Levothyroxine Sodium (Levothyroxine Sodium 137 Mcg Tablet) 137 mcg PO [id number] [facility] Stop: 08/26/24 06:29 Last Admin: 08/01/24 06:44 Dose: Not Given Lidocaine (Lidocaine 5% 1 Patch) 1 patch TD HS [facility] Stop: 08/24/24 20:59 Last Admin: 08/01/24 19:58 Dose: 1 patch Lidocaine (Lidocaine 5% 1 Patch) 1 patch TD HS [facility] Stop: 08/24/24 20:59 Last Admin: 08/01/24 19:59 Dose: 1 patch Lorazepam (Lorazepam 0.5 Mg Tab) 0.5 mg PO TID PRN PRN Reason: Anxiety Stop: 08/24/24 07:54 Lorazepam (Lorazepam 2 Mg/1 Ml Vial) 1 mg IV UD PRN; Protocol PRN Reason: EtOH Withdrawal AWSS Score 6,7 Stop: 08/24/24 23:19 Last Admin: 07/27/24 04:53 Dose: 1 mg Lorazepam (Lorazepam 2 Mg/1 Ml Vial) 2 mg IV UD PRN; Protocol PRN Reason: EtOH Withdrawal AWSS Score 8,9 Stop: 08/24/24 23:19 Last Admin: 07/26/24 09:39 Dose: 2 mg Lorazepam (Lorazepam 2 Mg/1 Ml Vial) 3 mg IV ONCE PRN; Protocol PRN Reason: EtOH Withdrawal AWSS Score 10+ Melatonin (Melatonin 3 Mg Tab) 3 mg PO HS PRN PRN Reason: Sleep Stop: 08/25/24 20:59 Last Admin: 08/01/24 02:14 Dose: 3 mg Metoprolol Tartrate (Metoprolol Tartrate 1 Mg/Ml Vial) 5 mg IV Q6 PRN PRN Reason: heart rate > 120 Stop: 08/25/24 17:59 Last Admin: 07/28/24 04:07 Dose: 5 mg Metoprolol Tartrate (Metoprolol Tartrate 50 Mg Tab) 50 mg PO BID [facility] Stop: 08/25/24 20:59 Last Admin: 08/02/24 08:14 Dose: 50 mg Miscellaneous (Carbohydrates For Hypoglycemia ) 15 - 30 gm PO UD PRN PRN Reason: Hypoglycemia Protocol Stop: 08/24/24 10:29 Miscellaneous (Remove Lidoderm Patch) 1 each N/A Q24H [facility] Stop: 08/25/24 08:59 Last Admin: 08/02/24 08:14 Dose: 1 each Miscellaneous (Remove Lidoderm Patch) 1 each N/A Q24H [facility] Stop: 08/25/24 08:59 Last Admin: 08/02/24 08:14 Dose: 1 each Multivitamins (Multivitamin Tab) 1 tab PO QAM [facility] Stop: 08/24/24 08:59 Last Admin: 08/02/24 08:13 Dose: 1 tab Pantoprazole Sodium (Pantoprazole 40 Mg Tab) 40 mg PO DAILY [facility] Stop: 08/25/24 08:59 Last Admin: 08/02/24 08:14 Dose: 40 mg Polyethylene Glycol (Polyethylene (Miralax) 17 Gm Pack) 17 gm PO DAILY [facility] Stop: 08/25/24 08:59 Last Admin: 08/02/24 08:14 Dose: Not Given Thiamine HCl (Thiamine Hcl 100 Mg Tab) 100 mg PO QAM [facility] Stop: 08/25/24 08:59 Last Admin: 08/02/24 08:14 Dose: 100 mg
--- NOTE | 2024-08-03 15:03 | Hospitalist Progress Note ---
Date of Service August 03, 2024 Assessment & Plan (1) Hypotension: Plan: Recurrent Falls This is the patient's fifth fall within a year Patient reports presyncope prior to falling Denies palpitations, shortness of breath Admitted with hypotension and hypoglycemia Question of whether patient is taking his medications appropriately As per friend, patient short-term memory has been progressively declining Patient advised to have medication brought in by friends for verification, patient agreed - discussed w/ RN - medications were reviewed and confirmed by pharmacist and RN 08/01 - Pt is awake alert and oriented - Tells me that he was started on ozempic in addition to his insulin and metformin. Then his ozempic dose was increased. Pt feels that this likely led to his hypoglycemic episode. Recurrent falls likely multifactorial: Rule out orthostatic hypotension - Monitor orthostatic vitals Rule out arrhythmia - No arrhythmias per cafeteria monitor so far will need outpatient cardiac monitoring - Echocardiogram showing EF of 55 to 60%, mild mitral regurgitation, mild tricuspid regurgitation Possible bilateral knee pain from arthritis and chronic neuropathy also contributing - Right Knee: Moderate tricompartment primary osteoarthritis. No acute fracture. Left Knee: Moderate to severe tricompartment primary osteoarthritis. No acute abnormality noted. - Orthopedics consulted - L knee MRI obtained IMPRESSION: 1. 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 2. Marked tri-compartmental osteoarthritic changes. 3. Multiple intraarticular loose bodies and mild joint effusion. 4. Anterior cruciate and posterior cruciate ligaments are not visualized likely chronically torn. 5. Meniscal loss with the destruction of expected architecture with extrusion of the remaining part likely macerated chronically degenerated/torn. 6. Marked enothesopathy of quadriceps and patellar tendons. 7. MCL grade II sprain. 8. LCL (grade III injury). 9. Periarticular soft tissue edema. - vitamin B12, Folate levels wnl Excessive Tramadol intake? - Patient's daughter reports patient could be taking higher doses of tramadol - as above, hypoglycemic episode possible secondary to increased ozempic dose, in addition to pt's insulin and metformin Initial imaging studies without fractures + some lower back pain Lumbar spine CT - FINDINGS: Vertebrae: Chronic lytic spondylolisthesis at L5-S1. Remote fracture deformity of the L3 vertebral body. Diffuse osteopenia throughout the visualized bones. No acute fracture. Mild bilateral sacroiliac joint arthropathy. Discs/spinal canal/neural foramina: No acute findings. Severe bilateral L5-S1 neural foraminal stenosis. No spinal canal stenosis. Soft tissues: Unremarkable. IMPRESSION: No evidence of acute lumbar spine pathology. Will need PT and OT evaluation Will likely need acute rehab - plan for [facility] Fever with tachycardia, Confusion Possible alcohol withdrawal Left lower lobe pneumonia versus Malignancy Positive for alcohol level on admission Patient denies drinking alcohol In the evening of hospital day #2,patient presents with confusion, tremors, tachycardia Consistent with possible alcohol withdrawal Started Librium protocol by previous provider along with alcohol withdrawal protocol, as needed Ativan Monitor closely 07/27 Blood pressure on the higher side, No recurrence of hypotension Currently showing signs and symptoms of possible alcohol withdrawal Continue Librium protocol and alcohol to protocol Having intermittent episodes of fever BioFire negative Chest x-ray showing possible left lower lobe pneumonia Repeat blood cultures - negat. for 48 hrs Urinalysis unremarkable Cefepime IV started 07/28 Alcohol withdrawal: Gabapentin, Librium, oxycodone discontinued overnight as patient was unresponsive Fever, tachycardia, confusion resolving Resume patient's usual gabapentin 900 mg twice daily DC Librium protocol, no narcotics for this patient 07/29 Pt currently without any signs of withdrawal, afebrile 07/30 cultx negative - stopped IV abx - switched to Po to finish abx course 08/03 Pt feeling well. abx course finished. Plan for DC to rehab Pneumonia Respiratory status stable CT chest: No bryan consolidation is seen. Groundglass nodule in the left lower lobe may represent low-grade adenocarcinoma versus infectious/inflammatory process. Nasal MRSA negative, DC vancomycin Continue cefepime urine Legionella - negative Chronic A-fib on Eliquis, in RVR Alcohol withdrawal , Pneumonia likely contributing Continue usual atenolol, diltiazem Already on Eliquis Monitor Traumatic neck pain, patient without radiculopathy symptoms -- Cervical MRI not revealing any fractures Hyperlipidemia, on statin Rx DM2 insulin requiring -- patient hypoglycemic at the ER, unknown baseline control -- A1c 7.0 chief port director consulted - as above, pt on ozempic, insulin, metformin at home - ozempic dose was increased prior to his hypoglycemic episode - likely contributing Hypothyroidism, euthyroid based on TSH GERD on PPI chronic anemia, hemoglobin close to baseline Possible alcohol abuse, patient denies recent EtOH intake but with detectable blood alcohol level, abdominal imaging shows chronic liver disease past tobacco abuse DVT prophylaxis. Oswaldo Full code Disposition Lives alone at home Friends live nearby PT and OT evaluation Plan to [facility] Admission and Anticipated Discharge Date Admission Date: July 25, 2024 Subjective Pt seen in follow up afebrile Sitting up in chair, in NAD, working on his computer Awake, alert oriented Tells me that he was started on ozempic in addition to his insulin and metformin. Then his ozempic dose was increased. Pt feels that this likely led to his hypoglycemic episode. Currently pt feels well. Denies any fever, chills, chest pain, shortness of breath, cough, abd. pain, n/v hx of chronic knee pain - pt seen by ortho while inpt - MRI knee obtained cultx negat. - stopped IV abx -> switched to PO to finish course Pt continues to feel well, plans to [facility] Review of Systems Review of Systems: All systems reviewed & are unremarkable except as noted in Subjective Physical Exam Physical Exam: General- oriented x 3, not in distress, speaks in sentences with no effort or accessory muscle use Eyes- anicteric Neck- no JVD Lungs- clear breath sounds bilaterally, no rales/wheezes Heart- normal rate, regular rhythm; no murmurs Abdomen- normal bowel sounds, nondistended, soft, nontender Extremities- no pretibial edema, no calf tenderness Neuro- alert, oriented x 3; no gross focal neurologic deficits Skin- warm & dry Results & Data Results & Data Vital Signs (Past 12 Hours) Vital Signs Temp Pulse Pulse Resp BP Pulse Ox O2 Del Method 08/03/24 14:04 71 08/03/24 11:52 36.7 C 91 H 18 116/54 L 94 Room Air 08/03/24 08:34 36.8 C 95 H 18 114/72 96 Room Air 08/03/24 07:21 80 08/03/24 03:30 36.5 C 76 14 130/73 99 Room Air 08/03/24 03:10 78 17 99 Laboratory Results 08/03/24 08/03/24 08/02/24 Range/Units 11:33 07:26 19:45 POC Glucose 173 H 131 H 214 H (70-99) mg/dl 08/02/24 Range/Units 16:28 POC Glucose 100 H (70-99) mg/dl Medications Administered Current Inpatient Medications Acetaminophen (Acetaminophen 500 Mg Tab) 500 mg PO Q6H PRN PRN Reason: fever/pain Stop: 08/24/24 07:54 Last Admin: 08/03/24 10:59 Dose: 500 mg Allopurinol (Allopurinol 100 Mg Tab) 100 mg PO DAILY [facility] Stop: 08/25/24 08:59 Last Admin: 08/03/24 08:19 Dose: 100 mg Amoxicillin/Clavulanate Potassium (Amoxicillin/Clavulanate 875 Mg Tab) 1 tab PO BIDM [facility]; Protocol Stop: 08/06/24 07:59 Last Admin: 08/03/24 08:19 Dose: 1 tab Apixaban (Apixaban 5 Mg Tablet) 5 mg PO BID [facility] Stop: 08/25/24 09:59 Last Admin: 08/03/24 08:18 Dose: 5 mg Atorvastatin Calcium (Atorvastatin 40 Mg Tab) 40 mg PO HS [facility] Stop: 08/25/24 20:59 Last Admin: 08/02/24 20:27 Dose: 40 mg Chlordiazepoxide HCl (Chlordiazepoxide Hcl 25 Mg Cap) 25 mg PO Q8H [facility] Last Admin: 07/27/24 20:26 Dose: Not Given Dextrose (Dextrose 50% 50 Ml Syringe) 25 - 50 ml IV UD PRN; Protocol PRN Reason: Hypoglycemia Protocol Stop: 08/24/24 10:29 Diclofenac Sodium (Diclofenac Sod 1% Gel 100 Gm Tube) 2 gm EXT Q6H PRN; Protocol PRN Reason: joint pain Stop: 08/24/24 22:49 Last Admin: 08/03/24 08:18 Dose: 2 gm Diltiazem HCl (Diltiazem Hcl 120 Mg Capcr) 120 mg PO DAILY [facility] Stop: 08/25/24 08:59 Last Admin: 08/03/24 08:19 Dose: 120 mg Ferrous Sulfate (Ferrous Sulfate 325 Mg Tab) 325 mg PO Q2D [facility] Stop: 08/25/24 08:59 Last Admin: 08/03/24 08:19 Dose: 325 mg Folic Acid (Folic Acid 1 Mg Tab) 1 mg PO QAM [facility] Stop: 08/24/24 08:59 Last Admin: 08/03/24 08:19 Dose: 1 mg Gabapentin (Gabapentin 300 Mg Cap) 900 mg PO BID [facility] Stop: 08/24/24 22:59 Last Admin: 08/03/24 08:18 Dose: 900 mg Glucagon (Glucagon For Inj 1 Mg Vial) 1 mg SQ UD PRN; Protocol PRN Reason: Hypoglycemia Protocol Stop: 08/24/24 10:29 Glucosamine Sulfate (Glucosamine Sulfate 500 Mg Cap) 1,000 mg PO DAILY [facility] Stop: 08/25/24 08:59 Last Admin: 08/03/24 08:18 Dose: 1,000 mg Glucose (Glucose 40% Gel 15 Gm Tube) 15 - 30 gm PO UD PRN; Protocol PRN Reason: Hypoglycemia Protocol Stop: 08/24/24 10:29 Glucose (Glucose 10 Tab/Tube) 4 - 8 tab PO UD PRN; Protocol PRN Reason: Hypoglycemia Protocol Stop: 08/24/24 10:29 Guaifenesin (Guaifenesin 600 Mg Tabcr) 600 mg PO Q12 [facility] Stop: 08/28/24 20:59 Last Admin: 08/03/24 08:19 Dose: 600 mg Promethazine HCl (Phenergan) 6.25 mg in 50.25 mls @ 201 mls/hr IV Q6H PRN PRN Reason: Nausea And Vomiting Stop: 08/24/24 07:54 Insulin Aspart (Insulin Aspart Per Unit Charge) 0 units SC ACHS [facility] Stop: 08/24/24 11:29 Last Admin: 08/03/24 12:09 Dose: 5 units Insulin Glargine (Lantus Per Unit Charge) 5 units SQ DAILY [facility] Stop: 08/26/24 08:59 Last Admin: 08/03/24 08:17 Dose: 5 units Levothyroxine Sodium (Levothyroxine Sodium 137 Mcg Tablet) 137 mcg PO [id number] [facility] Stop: 08/26/24 06:29 Last Admin: 08/03/24 06:27 Dose: 137 mcg Lidocaine (Lidocaine 5% 1 Patch) 1 patch TD HS [facility] Stop: 08/24/24 20:59 Last Admin: 08/02/24 20:28 Dose: 1 patch Lidocaine (Lidocaine 5% 1 Patch) 1 patch TD HS [facility] Stop: 08/24/24 20:59 Last Admin: 08/02/24 20:29 Dose: 1 patch Lorazepam (Lorazepam 0.5 Mg Tab) 0.5 mg PO TID PRN PRN Reason: Anxiety Stop: 08/24/24 07:54 Lorazepam (Lorazepam 2 Mg/1 Ml Vial) 1 mg IV UD PRN; Protocol PRN Reason: EtOH Withdrawal AWSS Score 6,7 Stop: 08/24/24 23:19 Last Admin: 07/27/24 04:53 Dose: 1 mg Lorazepam (Lorazepam 2 Mg/1 Ml Vial) 2 mg IV UD PRN; Protocol PRN Reason: EtOH Withdrawal AWSS Score 8,9 Stop: 08/24/24 23:19 Last Admin: 07/26/24 09:39 Dose: 2 mg Lorazepam (Lorazepam 2 Mg/1 Ml Vial) 3 mg IV ONCE PRN; Protocol PRN Reason: EtOH Withdrawal AWSS Score 10+ Melatonin (Melatonin 3 Mg Tab) 3 mg PO HS PRN PRN Reason: Sleep Stop: 08/25/24 20:59 Last Admin: 08/02/24 20:26 Dose: 3 mg Metoprolol Tartrate (Metoprolol Tartrate 1 Mg/Ml Vial) 5 mg IV Q6 PRN PRN Reason: heart rate > 120 Stop: 08/25/24 17:59 Last Admin: 07/28/24 04:07 Dose: 5 mg Metoprolol Tartrate (Metoprolol Tartrate 50 Mg Tab) 50 mg PO BID [facility] Stop: 08/25/24 20:59 Last Admin: 08/03/24 08:19 Dose: 50 mg Miscellaneous (Carbohydrates For Hypoglycemia ) 15 - 30 gm PO UD PRN PRN Reason: Hypoglycemia Protocol Stop: 08/24/24 10:29 Miscellaneous (Remove Lidoderm Patch) 1 each N/A Q24H [facility] Stop: 08/25/24 08:59 Last Admin: 08/03/24 08:20 Dose: Not Given Miscellaneous (Remove Lidoderm Patch) 1 each N/A Q24H [facility] Stop: 08/25/24 08:59 Last Admin: 08/03/24 08:20 Dose: Not Given Multivitamins (Multivitamin Tab) 1 tab PO QAM [facility] Stop: 08/24/24 08:59 Last Admin: 08/03/24 08:19 Dose: 1 tab Pantoprazole Sodium (Pantoprazole 40 Mg Tab) 40 mg PO DAILY [facility] Stop: 08/25/24 08:59 Last Admin: 08/03/24 08:19 Dose: 40 mg Polyethylene Glycol (Polyethylene (Miralax) 17 Gm Pack) 17 gm PO DAILY [facility] Stop: 08/25/24 08:59 Last Admin: 08/03/24 08:20 Dose: 17 gm Thiamine HCl (Thiamine Hcl 100 Mg Tab) 100 mg PO QA [facility] Stop: 08/25/24 08:59 Last Admin: 08/03/24 08:19 Dose: 100 mg
[2024-08-04] MEDS: CYANOCOBALAMIN (B-12) 500 MCG TABLET PO SCH (01:04)
[2024-08-04] MEDS: ASCORBIC ACID 500 MG TAB PO SCH (01:04)
[2024-08-04] MEDS: CHOLECALCIFEROL 25 MCG (1000 UNITS) TAB PO SCH (08:49)
[2024-08-04] MEDS: ASPIRIN 81 MG ECTAB PO SCH (08:49)
--- NOTE | 2024-08-04 17:52 | Hospitalist Progress Note ---
Date of Service August 04, 2024 Assessment & Plan (1) Hypotension: Plan: Recurrent Falls This is the patient's fifth fall within a year Patient reports presyncope prior to falling Denies palpitations, shortness of breath Admitted with hypotension and hypoglycemia Question of whether patient is taking his medications appropriately As per friend, patient short-term memory has been progressively declining Patient advised to have medication brought in by friends for verification, patient agreed - discussed w/ RN - medications were reviewed and confirmed by pharmacist and RN 08/01 - Pt is awake alert and oriented - Tells me that he was started on ozempic in addition to his insulin and metformin. Then his ozempic dose was increased. Pt feels that this likely led to his hypoglycemic episode. Recurrent falls likely multifactorial: Rule out orthostatic hypotension - Monitor orthostatic vitals Rule out arrhythmia - No arrhythmias per clinical research monitor so far will need outpatient cardiac monitoring - Echocardiogram showing EF of 55 to 60%, mild mitral regurgitation, mild tricuspid regurgitation Possible bilateral knee pain from arthritis and chronic neuropathy also contributing - Right Knee: Moderate tricompartment primary osteoarthritis. No acute fracture. Left Knee: Moderate to severe tricompartment primary osteoarthritis. No acute abnormality noted. - Orthopedics consulted - L knee MRI obtained IMPRESSION: 1. 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 2. Marked tri-compartmental osteoarthritic changes. 3. Multiple intraarticular loose bodies and mild joint effusion. 4. Anterior cruciate and posterior cruciate ligaments are not visualized likely chronically torn. 5. Meniscal loss with the destruction of expected architecture with extrusion of the remaining part likely macerated chronically degenerated/torn. 6. Marked enothesopathy of quadriceps and patellar tendons. 7. MCL grade II sprain. 8. LCL (grade III injury). 9. Periarticular soft tissue edema. [facility] - vitamin B12, Folate levels wnl Excessive Tramadol intake? - Patient's daughter reports patient could be taking higher doses of tramadol - as above, hypoglycemic episode possible secondary to increased ozempic dose, in addition to pt's insulin and metformin Initial imaging studies without fractures + some lower back pain Lumbar spine CT - FINDINGS: Vertebrae: Chronic lytic spondylolisthesis at L5-S1. Remote fracture deformity of the L3 vertebral body. Diffuse osteopenia throughout the visualized bones. No acute fracture. Mild bilateral sacroiliac joint arthropathy. Discs/spinal canal/neural foramina: No acute findings. Severe bilateral L5-S1 neural foraminal stenosis. No spinal canal stenosis. Soft tissues: Unremarkable. IMPRESSION: No evidence of acute lumbar spine pathology. Will need PT and OT evaluation Will likely need acute rehab - plan for [facility] Fever with tachycardia, Confusion Possible alcohol withdrawal Left lower lobe pneumonia versus Malignancy Positive for alcohol level on admission Patient denies drinking alcohol In the evening of hospital day #2,patient presents with confusion, tremors, tachycardia Consistent with possible alcohol withdrawal Started Librium protocol by previous provider along with alcohol withdrawal protocol, as needed Ativan Monitor closely 07/27 Blood pressure on the higher side, No recurrence of hypotension Currently showing signs and symptoms of possible alcohol withdrawal Continue Librium protocol and alcohol to protocol Having intermittent episodes of fever BioFire negative Chest x-ray showing possible left lower lobe pneumonia Repeat blood cultures - negat. for 48 hrs Urinalysis unremarkable Cefepime IV started 07/28 Alcohol withdrawal: Gabapentin, Librium, oxycodone discontinued overnight as patient was unresponsive Fever, tachycardia, confusion resolving Resume patient's usual gabapentin 900 mg twice daily DC Librium protocol, no narcotics for this patient 07/29 Pt currently without any signs of withdrawal, afebrile 07/30 cultx negative - stopped IV abx - switched to Po to finish abx course 08/03 Pt feeling well. abx course finished. Plan for DC to rehab Pneumonia Respiratory status stable CT chest: No bryan consolidation is seen. Groundglass nodule in the left lower lobe may represent low-grade adenocarcinoma versus infectious/inflammatory process. Nasal MRSA negative, DC vancomycin Continued cefepime --> switched to augmentin - abx course finished urine Legionella - negative Chronic A-fib on Eliquis, in RVR Alcohol withdrawal , Pneumonia likely contributing Continue usual atenolol, diltiazem Already on Eliquis Monitor Traumatic neck pain, patient without radiculopathy symptoms -- Cervical MRI not revealing any fractures Hyperlipidemia, on statin Rx DM2 insulin requiring -- patient hypoglycemic at the ER, unknown baseline control -- A1c 7.0 perioperative educator consulted - as above, pt on ozempic, insulin, metformin at home - ozempic dose was increased prior to his hypoglycemic episode - likely contributing Hypothyroidism, euthyroid based on TSH GERD on PPI chronic anemia, hemoglobin close to baseline Possible alcohol abuse, patient denies recent EtOH intake but with detectable blood alcohol level, abdominal imaging shows chronic liver disease past tobacco abuse DVT prophylaxis. Oswaldo Full code Disposition Lives alone at home Friends live nearby PT and OT evaluation [facility] Admission and Anticipated Discharge Date Admission Date: July 25, 2024 Subjective Pt seen in follow up afebrile Laying in bed in NAD Awake, alert oriented Tells me that he was started on ozempic in addition to his insulin and metformin. Then his ozempic dose was increased. Pt feels that this likely led to his hypoglycemic episode. Currently pt feels well. Denies any fever, chills, chest pain, shortness of breath, cough, abd. pain, n/v hx of chronic knee pain - pt seen by ortho while inpt - MRI knee obtained -> pt plans [facility] Pt continues to feel well, plans to [facility] vs home w/ HH - CM involved in DC planning Review of Systems Review of Systems: All systems reviewed & are unremarkable except as noted in Subjective Physical Exam Physical Exam: General- oriented x 3, not in distress, speaks in sentences with no effort or accessory muscle use Eyes- anicteric Neck- no JVD Lungs- clear breath sounds bilaterally, no rales/wheezes Heart- normal rate, regular rhythm; no murmurs Abdomen- normal bowel sounds, nondistended, soft, nontender Extremities- no pretibial edema, no calf tenderness Neuro- alert, oriented x 3; no gross focal neurologic deficits Skin- warm & dry Results & Data Results & Data Vital Signs (Past 12 Hours) Vital Signs Temp Pulse Pulse Resp BP Pulse Ox O2 Del Method 08/04/24 14:42 36.6 C 64 20 150/65 H 96 Room Air 08/04/24 14:24 85 08/04/24 11:23 36.5 C 76 16 113/70 96 Room Air 08/04/24 09:42 Room Air 08/04/24 07:50 36.8 C 82 20 128/77 98 Room Air 08/04/24 06:43 106 H Medications Administered Current Inpatient Medications Acetaminophen (Acetaminophen 500 Mg Tab) 500 mg PO Q6H PRN PRN Reason: fever/pain Stop: 08/24/24 07:54 Last Admin: 08/04/24 17:29 Dose: 500 mg Allopurinol (Allopurinol 100 Mg Tab) 100 mg PO DAILY [facility] Stop: 08/25/24 08:59 Last Admin: 08/04/24 08:51 Dose: 100 mg Apixaban (Apixaban 5 Mg Tablet) 5 mg PO BID [facility] Stop: 08/25/24 09:59 Last Admin: 08/04/24 08:51 Dose: 5 mg Ascorbic Acid (Ascorbic Acid 500 Mg Tab) 500 mg PO Q48H [facility] Stop: 09/02/24 18:29 Last Admin: 08/04/24 01:04 Dose: Not Given Aspirin (Aspirin 81 Mg Ectab) 81 mg PO DAILY [facility] Stop: 09/03/24 08:59 Last Admin: 08/04/24 08:49 Dose: 81 mg Atorvastatin Calcium (Atorvastatin 40 Mg Tab) 40 mg PO HS [facility] Stop: 08/25/24 20:59 Last Admin: 08/03/24 21:05 Dose: 40 mg Cyanocobalamin (Cyanocobalamin (B-12) 500 Mcg Tablet) 1,000 mcg PO MoWeFr@0900 [facility] Stop: 09/02/24 18:29 Last Admin: 08/04/24 01:04 Dose: Not Given Ferrous Sulfate (Ferrous Sulfate 325 Mg Tab) 325 mg PO Q2D [facility] Stop: 08/25/24 08:59 Last Admin: 08/03/24 08:19 Dose: 325 mg Folic Acid (Folic Acid 1 Mg Tab) 1 mg PO QAM [facility] Stop: 08/24/24 08:59 Last Admin: 08/04/24 08:50 Dose: 1 mg Gabapentin (Gabapentin 300 Mg Cap) 900 mg PO BID [facility] Stop: 08/24/24 22:59 Last Admin: 08/04/24 08:50 Dose: 900 mg Glucagon (Glucagon For Inj 1 Mg Vial) 1 mg SQ UD PRN; Protocol PRN Reason: Hypoglycemia Protocol Stop: 08/24/24 10:29 Glucosamine Sulfate (Glucosamine Sulfate 500 Mg Cap) 1,000 mg PO DAILY [facility] Stop: 08/25/24 08:59 Last Admin: 08/04/24 08:51 Dose: 1,000 mg Glucose (Glucose 40% Gel 15 Gm Tube) 15 - 30 gm PO UD PRN; Protocol PRN Reason: Hypoglycemia Protocol Stop: 08/24/24 10:29 Glucose (Glucose 10 Tab/Tube) 4 - 8 tab PO UD PRN; Protocol PRN Reason: Hypoglycemia Protocol Stop: 08/24/24 10:29 Guaifenesin (Guaifenesin 600 Mg Tabcr) 600 mg PO Q12 [facility] Stop: 08/28/24 20:59 Last Admin: 08/04/24 08:50 Dose: 600 mg Promethazine HCl (Phenergan) 6.25 mg in 50.25 mls @ 201 mls/hr IV Q6H PRN PRN Reason: Nausea And Vomiting Stop: 08/24/24 07:54 Insulin Aspart (Insulin Aspart Per Unit Charge) 0 units SC ACHS [facility] Stop: 08/24/24 11:29 Last Admin: 08/04/24 17:29 Dose: 5 units Insulin Glargine (Lantus Per Unit Charge) 5 units SQ DAILY [facility] Stop: 08/26/24 08:59 Last Admin: 08/04/24 09:02 Dose: 5 units Levothyroxine Sodium (Levothyroxine Sodium 137 Mcg Tablet) 137 mcg PO MoTuWeThFrSa [facility] Stop: 08/26/24 06:29 Last Admin: 08/04/24 05:37 Dose: 137 mcg Lidocaine (Lidocaine 5% 1 Patch) 1 patch TD HS [facility] Stop: 08/24/24 20:59 Last Admin: 08/03/24 21:06 Dose: 1 patch Lidocaine (Lidocaine 5% 1 Patch) 1 patch TD [facility] Stop: 08/24/24 20:59 Last Admin: 08/03/24 21:06 Dose: 1 patch Lorazepam (Lorazepam 0.5 Mg Tab) 0.5 mg PO TID PRN PRN Reason: Anxiety Stop: 08/24/24 07:54 Lorazepam (Lorazepam 2 Mg/1 Ml Vial) 1 mg IV UD PRN; Protocol PRN Reason: EtOH Withdrawal AWSS Score 6,7 Stop: 08/24/24 23:19 Last Admin: 07/27/24 04:53 Dose: 1 mg Lorazepam (Lorazepam 2 Mg/1 Ml Vial) 2 mg IV UD PRN; Protocol PRN Reason: EtOH Withdrawal AWSS Score 8,9 Stop: 08/24/24 23:19 Last Admin: 07/26/24 09:39 Dose: 2 mg Lorazepam (Lorazepam 2 Mg/1 Ml Vial) 3 mg IV ONCE PRN; Protocol PRN Reason: EtOH Withdrawal AWSS Score 10+ Melatonin (Melatonin 3 Mg Tab) 3 mg PO HS PRN PRN Reason: Sleep Stop: 08/25/24 20:59 Last Admin: 08/02/24 20:26 Dose: 3 mg Metoprolol Tartrate (Metoprolol Tartrate 1 Mg/Ml Vial) 5 mg IV Q6 PRN PRN Reason: heart rate > 120 Stop: 08/25/24 17:59 Last Admin: 07/28/24 04:07 Dose: 5 mg Metoprolol Tartrate (Metoprolol Tartrate 50 Mg Tab) 50 mg PO BID [facility] Stop: 08/25/24 20:59 Last Admin: 08/04/24 08:50 Dose: 50 mg Miscellaneous (Carbohydrates For Hypoglycemia ) 15 - 30 gm PO UD PRN PRN Reason: Hypoglycemia Protocol Stop: 08/24/24 10:29 Miscellaneous (Remove Lidoderm Patch) 1 each N/A Q24H [facility] Stop: 08/25/24 08:59 Last Admin: 08/04/24 08:58 Dose: Not Given Miscellaneous (Remove Lidoderm Patch) 1 each N/A Q24H [facility] Stop: 08/25/24 08:59 Last Admin: 08/04/24 08:58 Dose: Not Given Multivitamins (Multivitamin Tab) 1 tab PO QAM [facility] Stop: 08/24/24 08:59 Last Admin: 08/04/24 08:51 Dose: 1 tab Pantoprazole Sodium (Pantoprazole 40 Mg Tab) 40 mg PO DAILY [facility] Stop: 08/25/24 08:59 Last Admin: 08/04/24 08:50 Dose: 40 mg Polyethylene Glycol (Polyethylene (Miralax) 17 Gm Pack) 17 gm PO DAILY [facility] Stop: 08/25/24 08:59 Last Admin: 08/04/24 08:49 Dose: 17 gm Thiamine HCl (Thiamine Hcl 100 Mg Tab) 100 mg PO QAM [facility] Stop: 08/25/24 08:59 Last Admin: 08/04/24 08:58 Dose: 100 mg Vitamin D (Cholecalciferol 25 Mcg (1000 Units) Tab) 50 mcg PO DAILY [facility] Stop: 09/03/24 08:59 Last Admin: 08/04/24 08:49 Dose: 50 mcg
--- NOTE | 2024-08-05 16:23 | Hospitalist Progress Note ---
Date of Service August 05, 2024 Assessment & Plan (1) Hypotension: Plan: 78-year-old male with PMH of A-fib on Eliquis, HTN, HLD, T2DM insulin requiring, hypothyroidism, GERD, gout, chronic anemia [baseline hemoglobin of 13], past tobacco abuse presented to the ED 07/25 after fall. Patient was noted to be hypotensive and hypoglycemic at presentation. He is being managed for the following: Recurrent Falls: Likely in the setting of hypoglycemia. Orthostatic vitals are also positive. Slow transition during change in position. Will hold Ozempic on discharge, patient to follow-up with diabetic clinic closely upon discharge. Patient to continue with PT/OT - Recommends rehab. No arrhythmia noted so far, echo this admission reviewed, can benefit from outpatient Zio patch monit oring. Possible bilateral knee pain from arthritis and chronic neuropathy also contributing to falls. Could be excess tramadol intake contributing to falls, patient's daughter reports patient could be taking higher doses of tramadol. Admitted with hypotension and hypoglycemia HO T2DM requiring insulin: A1c 7.0 this admission. Question of whether patient is taking his medications appropriately As per friend, patient short-term memory has been progressively declining Patient states that he was recently started on Ozempic and his dose was increased more recently and believes it could be the reason for his low blood glucose level. Hold Ozempic on discharge, close follow-up with diabetic clinic upon discharge. wellness educator on board. Bilateral osteoarthritis of knees, Huitron's cyst left knee: Orthopedics evaluated here - MRI left knee obtained, patient plan to follow-up with orthopedics from [place] upon discharge. Continue with pain management and supportive treatment. Concern for alcohol withdrawal: Initially there was concern of alcohol withdrawal, patient was started on Librium taper, later discontinued due to increased lethargy and drowsiness. 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 Will DC AZRA S protocol. Concern for left lower lobe pneumonia versus malignancy: MRSA neg, Urine legionella neg. Status post antibiotic course. Repeat CT scan of the chest in about 3 months time to document resolution of left lower lobe Groundglass opacity. Chronic A-fib on Eliquis, in RVR: likely pna contributing. Currently rate in 80s, atenolol has been changed to metoprolol, continue. Resume home Cardizem. Continue to monitor over telemetry. Continue home Eliquis. Traumatic neck pain, patient without radiculopathy symptoms-- Cervical MRI not revealing any fractures Other chronic medical conditions: Continue with/resume home meds as and when able. Hyperlipidemia, on statin Rx Hypothyroidism, euthyroid based on TSH GERD on PPI chronic anemia, hemoglobin close to baseline Possible alcohol abuse, patient denies recent EtOH intake but with detectable blood alcohol level at presentation, abdominal imaging shows chronic liver disease past tobacco abuse DVT prophylaxis. Eliquis Full code Disposition: Lives alone at home. Friends live nearby. PT and OT evaluation. Richy n to [facility] Admission and Anticipated Discharge Date Admission Date: July 25, 2024 Subjective Patient was seen and examined at bedside. Patient was sitting up in bed, NAD, resting comfortably. Patient reports eating okay, moving bowels 2 days ago, denies any new medical issues since yesterday. Physical Exam Physical Exam: General- oriented x 3, not in distress, speaks in sentences with no effort or accessory muscle use Eyes- anicteric Neck- no JVD Lungs- clear breath sounds bilaterally, no rales/wheezes Heart- normal rate, regular rhythm; no murmurs Abdomen- normal bowel sounds, nondistended, soft, nontender Extremities- no pretibial edema, no calf tenderness Neuro- alert, oriented x 3; no gross focal neurologic deficits Skin- warm & dry Results & Data Results & Data Vital Signs (Past 12 Hours) Vital Signs Temp Pulse Pulse Resp BP Pulse Ox O2 Del Method 08/05/24 15:54 80 08/05/24 11:00 36.9 C 85 16 128/75 97 Room Air 08/05/24 08:30 Room Air 08/05/24 07:25 71 08/05/24 07:13 36.5 C 71 18 113/76 97 CPAP 08/05/24 04:01 36.4 C L 79 20 125/85 98 Room Air, CPAP
[2024-08-05] MEDS: MELATONIN 3 MG TAB PO PRN (20:31)
[2024-08-06] MEDS: dilTIAZem HCL 120 MG CAPCR PO SCH (08:58)
--- NOTE | 2024-08-06 12:12 | Orthopedic Progress Note ---
Date of Service August 06, 2024 Assessment & Plan (1) Bilateral knee pain: (2) Hypotension: (3) Hypokalemia: (4) Syncope and collapse: (5) Hypoglycemia: (6) RUANO (dyspnea on exertion): Plan This is a 78-year-old gentleman who was admitted to the hospital for increased falls recently Orthopedics was initially consulted for his knee pain. We did obtain an MRI due to a large calcification noted in his posterior knee. This calcification appears most consistent with a Huitron's cyst. Would recommend outpatient orthopedic follow-up with a arthroplasty specialist. This has been arranged at the [place] apparently Admission and Anticipated Discharge Date Admission Date: July 25, 2024 Subjective Patient seen and evaluated in his hospital bed. Notes no acute issues. Knee pain has improved since previous. Has been able to ambulate with physical therapy. Physical Exam Physical Exam: Bilateral knees: Tenderness to palpation at the joint line bilaterally. Tenderness to palpation at the medial and lateral joint lines. Patient demonstrates active knee range of motion from 5 to 120 degrees. Sensation intact bilaterally and equal bilaterally, but diminished at baseline per the patient. His feet are warm and well-perfused. Results & Data Vital Signs (Past 12 Hours) Vital Signs Temp Pulse Pulse Resp BP Pulse Ox O2 Del Method 08/06/24 09:00 Room Air, CPAP 08/06/24 07:35 36.8 C 106 H 16 108/69 98 Room Air 08/06/24 07:15 88 08/06/24 03:31 36.4 C L 88 18 127/76 97 Room Air Diagnostic Findings MRI of the left knee was personally interpreted and reviewed. This demonstrates no acute osseous abnormalities. Patient has a complex large Huitron's cyst in the posterior aspect of his knee with calcifications.
--- NOTE | 2024-08-06 15:48 | Hospitalist Progress Note ---
Date of Service August 06, 2024 Assessment & Plan (1) Hypotension: Plan: 78-year-old male with PMH of A-fib on Eliquis, HTN, HLD, T2DM insulin requiring, hypothyroidism, GERD, gout, chronic anemia [baseline hemoglobin of 13], past tobacco abuse presented to the ED 07/25 after fall. Patient was noted to be hypotensive and hypoglycemic at presentation. He is being managed for the following: Recurrent Falls: Likely in the setting of hypoglycemia. Orthostatic vitals are also positive. Slow transition during change in position. Adjust insulin and decrease insulin dose on discharge, patient to follow-up with diabetic clinic closely upon discharge. Patient to continue with PT/OT - Recommends rehab. No arrhythmia noted so far, echo this admission reviewed, can benefit from outpatient Zio patch monitoring. Possible bilateral knee pain from arthritis and chronic neuropathy also contributing to falls. Could be excess tramadol intake contributing to falls, patient's daughter reports patient could be taking higher doses of tramadol. DC tramadol on discharge and encourage diclo gel to knees. Admitted with hypotension and hypoglycemia HO T2DM requiring insulin: A1c 7.0 this admission. Question of whether patient is taking his medications appropriately As per friend, patient short-term memory has been progressively declining Patient states that he was recently started on Ozempic and his dose was increased more recently and believes it could be the reason for his low blood glucose level. Adjust insulin and decrease insulin dose on discharge, close follow-up with diabetic clinic upon discharge. primary special educator on board. Bilateral osteoarthritis of knees, Huitron's cyst left knee: Orthopedics evaluated here - MRI left knee obtained, patient plan to follow-up with orthopedics from [place] upon discharge. Continue with pain management and supportive treatment. Concern for alcohol withdrawal: Initially there was concern of alcohol withdrawal, patient was started on Librium taper, later discontinued due to increased lethargy and drowsiness. 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 Will DC AZRA S protocol. Concern for left lower lobe pneumonia versus malignancy: MRSA neg, Urine legionella neg. Status post antibiotic course. Repeat CT scan of the chest in about 3 months time to document resolution of left lower lobe Groundglass opacity. Chronic A-fib on Eliquis, in RVR: likely pna contributing. Currently rate controlled, atenolol has been changed to metoprolol, continue. c/w home Cardizem 12/26. Continue to monitor over telemetry. Continue home Eliquis. Traumatic neck pain, patient without radiculopathy symptoms-- Cervical MRI not revealing any fractures Other chronic medical conditions: Continue with/resume home meds as and when able. Hyperlipidemia, on statin Rx Hypothyroidism, euthyroid based on TSH GERD on PPI chronic anemia, hemoglobin close to baseline Possible alcohol abuse, patient denies recent EtOH intake but with detectable blood alcohol level at presentation, abdominal imaging shows chronic liver disease past tobacco abuse DVT prophylaxis. Eliquis Full code Disposition: Lives alone at home. Friends live nearby. PT and OT evaluation. [facility] Med/surg until then. Admission and Anticipated Discharge Date Admission Date: July 25, 2024 Subjective Patient was seen and examined at bedside. Patient was lying in bed, NAD, resting comfortably. Patient reports eating okay, moving bowels 3 days ago, denies any new medical issues since yesterday. add colace, c/w miralax. Physical Exam Physical Exam: General- oriented x 3, not in distress, speaks in sentences with no effort or accessory muscle use Eyes- anicteric Neck- no JVD Lungs- clear breath sounds bilaterally, no rales/wheezes Heart- normal rate, regular rhythm; no murmurs Abdomen- normal bowel sounds, nondistended, soft, nontender Extremities- no pretibial edema, no calf tenderness Neuro- alert, oriented x 3; no gross focal neurologic deficits Skin- warm & dry Results & Data Results & Data Vital Signs (Past 12 Hours) Vital Signs Temp Pulse Pulse Resp BP BP Pulse Ox 08/06/24 15:39 36.5 C 75 20 106/59 L 99 08/06/24 12:58 36.6 C 79 16 123/75 96 08/06/24 09:00 08/06/24 07:35 36.8 C 106 H 16 108/69 98 08/06/24 07:15 88 O2 Del Method 08/06/24 15:39 CPAP 08/06/24 12:58 Room Air 08/06/24 09:00 Room Air, CPAP 08/06/24 07:35 Room Air 08/06/24 07:15
[2024-08-06] MEDS: DOCUSATE SODIUM 100 MG CAP PO SCH (17:02)
[2024-08-06] MEDS: DICLOFENAC SOD 1% GEL 100 GM TUBE EXT SCH (17:02)
[2024-08-07 03:47] VITALS: RESP 18
[2024-08-07 07:34] VITALS: TEMP 97.9; O2SAT 96
[2024-08-07 11:52] VITALS: BP 116/59; PULSE 85
--- NOTE | 2024-08-07 11:54 | Discharge Summary ---
Date of Service August 07, 2024 Admission HPI Per Admitting Provider History obtained from patient and records. Medical history significant for A-fib on Eliquis, hypertension, hyperlipidemia, DM2 insulin requiring, hypothyroidism, GERD, gout, chronic anemia (baseline hemoglobin of 13), past tobacco abuse. Patient felt dizzy and lightheaded as she got up from her chair to go to another room this a.m. Recurrent falls over the last couple of months. Not sure about head trauma. Denies chest pain, SOB, abdominal pain. Usual left shoulder pain resulting from Compliant with home medications. Patient neighbor later summoned EMS. Achy neck pain following fall. No arm or leg weakness or incontinence symptoms. Patient noted to be hypotensive and hypoglycemic at home. Denies recent EtOH intake or abuse. SBP 90s, blood sugar 40s upon arrival at the ER. IV Zosyn administered at the ER. 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 Admission Exam Per Admitting Provider GENERAL: Comfortable, pleasant, no respiratory distress SKIN: Pallor, warm HEENT: Alopecia, pale palpebral conjunctivae, no ptosis, dry buccal mucosa NECK : Supple, posterior cervical tenderness CHEST : Decreased breath sounds, no tenderness HEART : Irregular, no obvious murmurs ABDOMEN: Some distention, nontender EXTREMITIES : No LE swelling/tenderness, left shoulder tenderness (chronic as per patient), no other conspicuous deformities noted NEUROLOGIC : Coherent, no facial asymmetry, fine hand tremors, gait and stance not assessed Principal Diagnosis Recurrent falls Hypoglycemic episode History of T2DM requiring insulin Bilateral osteoarthritis of knees Left lower lobe pneumonia Discharge Exam General- oriented x 3, not in distress, speaks in sentences with no effort or accessory muscle use Eyes- anicteric Neck- no JVD Lungs- clear breath sounds bilaterally, no rales/wheezes Heart- normal rate, regular rhythm; no murmurs Abdomen- normal bowel sounds, nondistended, soft, nontender Extremities- no pretibial edema, no calf tenderness Neuro- alert, oriented x 3; no gross focal neurologic deficits Skin- warm & dry Discharge Data Allergies Allergy/AdvReac Type Severity Reaction Status Date / Time No Known Allergies Allergy Unverified 07/25/24 09:09 Consultations 07/25/24 06:30 ED Decision to Admit Stat 07/28/24 20:03 Consult Orthopedic Surgery Routine Ordered Studies 07/25/24 05:05 CT abd pelvis IV con only Stat CT cervical spine wo con Stat CT head/brain wo con Stat 07/25/24 07:51 MR cervical spine wo con Stat 07/27/24 22:45 CT head/brain wo con Stat 07/28/24 07:37 CT chest diagnostic wo con Stat 07/28/24 19:02 CT lumbar spine wo con Routine 07/30/24 14:37 MR knee LT wo con Routine Hospital Course (1) Hypotension: 78-year-old male with PMH of A-fib on Eliquis, HTN, HLD, T2DM insulin requiring, hypothyroidism, GERD, gout, chronic anemia [baseline hemoglobin of 13], past tobacco abuse presented to the ED 07/25 after fall. Patient was noted to be hypotensive and hypoglycemic at presentation. He was managed for the following: Recurrent Falls: Likely in the setting of hypoglycemia. Orthostatic vitals are also positive. Slow transition during change in position. Adjust insulin - decreased insulin dose on discharge (he was needing around 20 units of insulin in hospital, patient to follow-up with diabetic clinic closely (within a week of discharge) upon discharge, pt has been explained the importance of it given need of safe uptitration of insulin. Pt doing better w/ PT, insurance declined rehab, pt declines HH PT or OP PT, he wants to go home, pt states he moves around in his scooter. No arrhythmia noted so far, echo this admission reviewed, can benefit from outpatient Zio patch monitoring. Possible bilateral knee pain from arthritis and chronic neuropathy also contributing to falls. Could be excess tramadol intake contributing to falls, patient's daughter reports patient could be taking higher doses of tramadol. DC tramadol and benadryl on discharge and encourage diclo gel to knees. Admitted with hypotension and hypoglycemia HO T2DM requiring insulin: A1c 7.0 this admission. Question of whether patient is taking his medications appropriately As per friend, patient short-term memory has been progressively declining Patient states that he was recently started on Ozempic and his dose was increased more recently and believes it could be the reason for his low blood glucose level. Adjust insulin and decrease insulin dose on discharge, close follow-up with diabetic clinic upon discharge. Pt states he won't take ozempic going forward. inclusion special educator on board. Bilateral osteoarthritis of knees, Huitron's cyst left knee: Orthopedics evaluated here - MRI left knee obtained, patient plan to follow-up with orthopedics from [place] upon discharge. Continue with pain management and supportive treatment. Concern for alcohol withdrawal: Initially there was concern of alcohol withdr awal, patient was started on Librium taper, later discontinued due to increased lethargy and drowsiness. Patient is out of withdrawal window even if he had been abusing alcohol [employer] INSPECT[employer]. Will DC AZRA S protocol. Concern for left lower lobe pneumonia versus malignancy: MRSA neg, Urine legionella neg. Status post antibiotic course. Repeat CT scan of the chest in a bout 3 months time to document resolution of left lower lobe Groundglass opacity. Chronic A-fib on Eliquis, in RVR: likely pna contributing. Currently rate co ntrolled, atenolol has been changed to metoprolol, continue. c/w home Cardizem 08/06. Continue to monitor over telemetry. Continue home Eliquis. Traumatic neck pain, patient without radiculopathy symptoms-- Cervical MRI not revealing any fractures Other chronic medical conditions: Continue with/resume home meds as and when able. Hyperlipidemia, on statin Rx Hypothyroidism, euthyroid based on TSH GERD on PPI chronic anemia, hemoglobin close to baseline Possible alcohol abuse, patient denies recent EtOH intake but with detectable blood alcohol level at presentation, abdominal imaging shows chronic liver disease past tobacco abuse DVT prophylaxis. Eliquis Full code Insurance denied rehab placement, patient denies home health upon discussion. He says he would like to go home with his friends support. He is being discharged with following instructions at the point of discharge: Follow-up with your primary care physician within a week time and likely you will need labs CBC/CMP/magnesium/phosphorus. As discussed at the bedside, you have stated you will be discontinuing Ozempic. Your Lantus dose will be decreased to 10 units twice a day, you will need to closely follow-up with diabetic clinic for ongoing monitoring/management of your diabetes. It is very important that you establish and follow-up with diabetic clinic within a week time upon discharge. Because of concern of frequent falls, your tramadol will be discontinued upon discharge. You can utilize diclofenac gel to your knees. As stated by yourself during bedside conversation, you will need to follow-up with orthopedics from [place] for your knee problem. Follow-up in 2 to 4 weeks time upon discharge. Given recurrent falls, you will benefit from outpatient Zio patch monitoring. Coordinate with your PCP office to set up the test. You will need repeat CT scan of the chest in about 3 months time to document resolution of your left lower lobe opacity. Coordinate with your PCP office to set up the test. Take your medications as prescribed. Please make sure that you are able to get your medications today by calling your pharmacy before you leave the hospital so that your treatment continuity is not broken. Home Health Attestation I certify that this patient is under my care and that I, or a physicians ophthalmic assistant working with me, had a face to-face encounter that meets the home health [id number] encounter requirements with this patient. The encounter with the patient was in whole, or in part, for the following medical condition, which is the primary reason for home health care (list medical condition): I certify that, based on my findings, the following services are medically n ecessary home health services: My clinical findings support the need for the above services because: Further, I certify that my clinical findings support that this patient is homebound (i.e. absences from home require considerable and taxing effort and are for medical reasons or moravian services or infrequently or of short duration when for other reasons) because: Certification for Home Health Services: Based on the above findings, I certify that this patient is confined to the home and needs intermittent jail care, physical therapy and/or speech therapy or continues to need occupational therapy. The patient is under my care, and I have initiated the establishment of the plan of care. This patient will be followed by a physician who will periodically review the plan of care. Total Time Total Time Spent Total Time Spent (In Minutes): 40 Discharge Plan Discharge Items Patient Disposition: Home - Self-Care Reason For Visit: AF Discharge Diagnosis: Recurrent falls Hypoglycemic episode History of T2DM requiring insulin Bilateral osteoarthritis of knees Left lower lobe pneumonia Activity: Resume your previous activity Non-emergency contact: Primary Care Provider Call non-emergency contact if: you have any medication questions and your symptoms worsen Follow-up/Referrals: [facility] [Primary Care Provider] - Diet: Carb Consistent or DM2 and Heart Healthy Addtl Attending Provider Instructions: Follow-up with your primary care physician within a week time and likely you will need labs CBC/CMP/magnesium/phosphorus. As discussed at the bedside, you have stated you will be discontinuing Ozempic. Your Lantus dose will be decreased to 10 units twice a day, you will need to closely follow-up with diabetic clinic for ongoing monitoring/management of your diabetes. It is very important that you establish and follow-up with diabetic clinic within a week time upon discharge. Because of concern of frequent falls, your tramadol will be discontinued upon discharge. You can utilize diclofenac gel to your knees. As stated by yourself during bedside conversation, you will need to follow-up with orthopedics from [place] for your knee problem. Follow-up in 2 to 4 weeks time upon discharge. Given recurrent falls, you will benefit from outpatient Zio patch monitoring. Coordinate with your PCP office to set up the test. You will need repeat CT scan of the chest in about 3 months time to document resolution of your left lower lobe opacity. Coordinate with your PCP office to set up the test. Take your medications as prescribed. Please make sure that you are able to get your medications today by calling your pharmacy before you leave the hospital so that your treatment continuity is not broken. Pending Studies at Discharge: No Stand-Alone Forms: My [facility] Education Everytime, Smoking Cessation Medications and DC Order Prescriptions: New metoprolol tartrate 50 mg Tablet 50 mg PO BID Qty: 60 0RF diclofenac sodium [Voltaren Arthritis Pain] 1 % Gel 2 g EXT Q6H 7 Days Qty: 100 0RF Continued levothyroxine 137 mcg Tablet 137 mcg PO 6XWK Qty: 0 Rx Instructions: Skip Sundays diltiazem HCl 120 mg Capsule,Extended Release 24 Hr 120 mg PO DAILY Qty: 0 furosemide 20 mg Tablet 20 mg PO DAILY Qty: 0 Patient Comments: for increased pedal edema. atorvastatin 80 mg Tablet 40 mg PO HS polyethylene glycol 3350 [Miralax] 17 gram Powder In Packet 17 g PO DAILY cyanocobalamin (vitamin B-12) [Vitamin B-12] 1,000 mcg Tablet 1,000 mcg PO 3XWK Rx Instructions: Mon/Wed/Fri glucosamine sulfate [Glucosamine] 500 mg Tablet 1,000 mg PO DAILY Rx Instructions: administer with a meal capsaicin 0.075 % Cream 1 applic TOPICAL DAILY PRN (Reason: Pain) Rx Instructions: do not wash area for at least 30 min after application melatonin 3 mg Tablet 3 mg PO HS Rx Instructions: On list from [facility], unable to verify w/ pt at this date/time. allopurinol 100 mg Tablet 100 mg PO DAILY aspirin 81 mg Tablet,Delayed Release (Dr/Ec) 81 mg PO DAILY Rx Instructions: On list from [place] pharmacy, unable to verify if pt still taking or not ascorbic acid (vitamin C) [Vitamin C] 500 mg Tablet 500 mg PO Q OTHER DAY pantoprazole 40 mg Tablet,Delayed Release (Dr/Ec) 40 mg PO DAILY ferrous sulfate 325 mg (65 mg iron) Tablet 325 mg PO Q OTHER DAY lidocaine 5 % Adhesive Patch,Medicated 1 patch TOPICAL DAILY Rx Instructions: leave on most painful area for up to 12 hrs gabapentin 300 mg Capsule 900 mg PO BID cholecalciferol (vitamin D3) [Vitamin D3] 25 mcg (1,000 unit) Tablet 50 mcg PO DAILY potassium gluconate 550 mg (90 mg) Tablet 550 mg PO DAILY Rx Instructions: On list from [facility], unable to verify w/ pt at this date/time. Eliquis 5 mg Tablet 5 mg PO BID Changed insulin glargine-yfgn 100 unit/mL (3 mL) Insulin Pen 10 unit subcut BID Qty: 15 0RF Rx Instructions: inject 10 units twice a day, maintain close f/u with diabetic clinic for uptitration. Held lisinopril-hydrochlorothiazide 20-25 mg Tablet 1 tab PO DAILY Hold Instructions: Resume on 08/13/24. Hold until further eval by your PCP within a week time. Held due to soft BP while in hospital. Discontinued atenolol 25 mg Tablet 25 - 50 mg PO UD Rx Instructions: Take 50mg by mouth every morning and 25mg by mouth every evening tramadol 50 mg Tablet 50 mg PO Q6H PRN (Reason: Pain) diphenhydramine HCl [Benadryl] 25 mg Capsule 25 mg PO HS semaglutide 1 mg/dose (4 mg/3 mL) Pen Injector 1 mg subcut WK Discharge Orders: Discharge Order (Routine); Ordered 08/07/24 Ordered By: Tad Lizama/Other Patient Handouts: Hypoglycemia (Low Blood Sugar), Managing Type 2 Diabetes Admission Data Admit Date/Time: 07/25/24 07:07 Attending Provider: Tad Garcia Admit Provider: Darren Ha Primary Care Provider: [facility] Other Providers: Giancarlo Vargas; [facility]; Darren Ha; Daniele Alba
== END 2024-08-07 13:52 | disposition home or self-care (01) | DRG 637 ==
LOC: ED 04:58 → SUATTDRO 07:07 → 2E 07:07 → 2N 08-03 18:23